=== PATIENT | male | born 1970 | race Caucasian/White ===

== ENCOUNTER 2020-05-21 18:33 | Outpatient (CLI) | payer BC, SELFPAY ==
--- NOTE | ~2020-05-21 | XR_ITS ---
EXAMINATION: XR lumbar spine 2-3V DATE: 05/21/2020 19:20 INDICATION: Low back pain and left hip pain. TECHNIQUE: 3 views of lumbar spine were obtained. COMPARISON: Lumbar spine MRI 01/30/2016 FINDINGS: There is 3 mm retrolisthesis of L5 on S1. There is mild chronic anterior wedging of L1 vert ebral body. There is mildly decreased disc height at L3-L4 and severely decreased disc height at L5-S 1. There is multilevel mild facet joint osteoarthritis. IMPRESSION: 1. Severe lower lumbar spondylosis. Reviewed, dictated and finalized at location A. 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
--- NOTE | ~2020-05-21 | XR_ITS ---
EXAMINATION: XR hip LT min 2V DATE: 05/21/2020 19:20 INDICATION: Left hip pain. TECHNIQUE: 3 views of left hip were obtained. COMPARISON: None. FINDINGS: Bone alignment is normal. No fracture. There is decreased femoral head/neck offset, which m ay be seen with femoral acetabular impingement. Left hip joint space is normal. IMPRESSION: 1. Decrease femoral head/neck offset, which may be seen with femoral acetabular impingement. Reviewed, dictated and finalized at location A. 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
== END 2020-05-21 18:34 | disposition home or self-care (01) ==
PROVIDERS: PCP Internal Medicine; Visit Provider Internal Medicine
DX: M25.552 Pain in left hip (principal); M47.896 Other spondylosis, lumbar region
CPT/HCPCS: 72100; 73502

== ENCOUNTER 2021-03-17 15:11 | Outpatient (CLI) | payer BC, SELFPAY ==
--- NOTE | ~2021-03-17 | XR_ITS ---
EXAMINATION: XR knee RT 3V DATE: 03/17/2021 15:31 INDICATION: Right knee pain. TECHNIQUE: 3 views of right knee were obtained. COMPARISON: None. FINDINGS: Bone alignment is normal. No fracture. The medial and lateral compartments are not well pro filed, which decreases sensitivity for joint space narrowing. There is at least mild tricompartmental osteoarthritis characterized by tiny marginal osteophytes. No knee joint effusion. IMPRESSION: 1. Mild right knee osteoarthritis. Reviewed, dictated and finalized at location A.
== END 2021-03-17 15:12 | disposition home or self-care (01) ==
LOC: ANHIMG 15:15
PROVIDERS: PCP Nurse Practitioner Adult Health; Visit Provider Nurse Practitioner Adult Health
DX: M17.11 Unilateral primary osteoarthritis, right knee (principal)
CPT/HCPCS: 73562

== ENCOUNTER 2021-05-24 09:47 | Outpatient (CLI) | payer BC, SELFPAY ==
[2021-05-29 15:07] LABS: Testosterone Free 40.4 pg/mL (35.0-155.0); Testosterone Total 221 ng/dL (250-1100)
== END 2021-05-24 09:48 | disposition home or self-care (01) ==
LOC: ANHLAB 09:49
PROVIDERS: PCP Nurse Practitioner Adult Health; Visit Provider Nurse Practitioner Adult Health
DX: G47.19 Other hypersomnia (principal)
CPT/HCPCS: 36415; 84402; 84403

== ENCOUNTER 2021-07-11 10:44 | Outpatient (CLI) | payer BC, SELFPAY ==
[2021-07-11 11:22] LABS: Hematocrit 39.9 % (42.0-52.0)
[2021-07-11 12:31] LABS: Prostate Specific Antigen 4.2 ng/mL (< OR = 4.0)
[2021-07-15 21:52] LABS: FSH 3.5 mIU/mL (1.6-8.0); LH 1.9 mIU/mL (1.5-9.3); Prolactin 15.7 ng/mL (***)
[2021-07-18 14:21] LABS: Estradiol, Ultrasensitive 39 pg/mL (< OR = 29)
[2021-07-21 15:17] LABS: Testosterone Free 48.1 pg/mL (35.0-155.0); Testosterone Total 334 ng/dL (250-1100)
== END 2021-07-11 10:45 | disposition home or self-care (01) ==
PROVIDERS: PCP Nurse Practitioner Adult Health; Visit Provider Nurse Practitioner
DX: R79.89 Other specified abnormal findings of blood chemistry (principal)
CPT/HCPCS: 36415; 82670; 83001; 83002; 84146; 84153; 84402; 84403; 85014; 85018

== ENCOUNTER 2021-07-14 11:33 | Outpatient (CLI) | payer BC, SELFPAY ==
[2021-07-14 12:40] LABS: Alanine Aminotransferase 28 U/L (4-50); Albumin Level 4.2 g/dL (3.5-5.1); Alkaline Phosphatase 66 U/L (38-126); Anion Gap 9 mmol/L (8-16); Aspartate Amino Transferase 27 U/L (17-59); Bilirubin,Total 0.3 mg/dL (0.2-1.3); Blood Urea Nitrogen 20 mg/dL (9-20); Calcium 9.4 mg/dL (8.4-10.2); Carbon Dioxide 27 mmol/L (22-30); Chloride 105 mmol/L (98-107); Cholesterol 140 mg/dL (0-200); Estimated Glomerular Filt Rate > 60; Glucose 107 mg/dL (65-110); HDL Direct 42 mg/dL; Sodium 141 mmol/L (137-145); Triglycerides 105 mg/dL (<150)
[2021-07-14 12:42] LABS: Hemoglobin A1C 5.4 % (<5.7)
[2021-07-14 12:51] LABS: LDL Cholesterol Direct 78 mg/dL
[2021-07-16 02:46] LABS: Insulin Level Total 110.7 uIU/mL (<=19.6)
== END 2021-07-14 11:34 | disposition home or self-care (01) ==
PROVIDERS: PCP Nurse Practitioner Adult Health; Visit Provider Nurse Practitioner Adult Health
DX: R73.03 Prediabetes (principal); E78.5 Hyperlipidemia, unspecified; E16.1 Other hypoglycemia
CPT/HCPCS: 36415; 80048; 80061; 80076; 83036; 83525

== ENCOUNTER 2021-08-07 13:47 | Outpatient (CLI) | payer BC, SELFPAY ==
[2021-08-07 15:01] LABS: Prostate Specific Antigen 2.8 ng/mL (< OR = 4.0)
== END 2021-08-07 13:48 | disposition home or self-care (01) ==
PROVIDERS: PCP Nurse Practitioner Adult Health; Visit Provider Nurse Practitioner
DX: R97.20 Elevated prostate specific antigen [PSA] (principal)
CPT/HCPCS: 36415; 84153

== ENCOUNTER 2021-10-04 07:51 | Outpatient (CLI) | payer BC, SELFPAY ==
[2021-10-04 08:52] LABS: Hematocrit 38.8 % (42.0-52.0); Hemoglobin 12.9 g/dL (14.0-18.0)
[2021-10-04 09:24] LABS: Iron 89 ug/dL (49-181)
[2021-10-04 09:35] LABS: Percent Iron Saturation 29 % (20-50)
[2021-10-08 14:43] LABS: Testosterone Free 112.6 pg/mL (35.0-155.0); Testosterone Total 552 ng/dL (250-1100)
== END 2021-10-04 07:52 | disposition home or self-care (01) ==
PROVIDERS: PCP Nurse Practitioner Adult Health; Visit Provider Nurse Practitioner
DX: D64.9 Anemia, unspecified (principal); R79.89 Other specified abnormal findings of blood chemistry
CPT/HCPCS: 36415; 82728; 83540; 83550; 84153; 84402; 84403; 85014; 85018

== ENCOUNTER 2021-10-22 14:41 | Outpatient (CLI) | payer BC, SELFPAY ==
[2021-10-22 15:07] LABS: IFOB Positive Control Positive; Immunochemical Fecal Occult Bl Negative (N)
== END 2021-10-22 14:42 | disposition home or self-care (01) ==
PROVIDERS: PCP Nurse Practitioner Adult Health; Visit Provider Nurse Practitioner Adult Health
DX: D64.9 Anemia, unspecified (principal)
CPT/HCPCS: 82274

== ENCOUNTER 2021-12-20 10:47 | Outpatient (CLI) | payer BC, SELFPAY ==
[2021-12-20 11:13] LABS: Hematocrit 43.4 % (42.0-52.0)
[2021-12-20 11:53] LABS: Prostate Specific Antigen 3.7 ng/mL (< OR = 4.0)
[2021-12-25 19:40] LABS: Testosterone Free 46.4 pg/mL (35.0-155.0); Testosterone Total 318 ng/dL (250-1100)
[2021-12-27 12:22] LABS: ANCA Screen Negative (Negative)
== END 2021-12-20 10:48 | disposition home or self-care (01) ==
LOC: ANHLAB 10:48
PROVIDERS: PCP Nurse Practitioner Adult Health; Visit Provider Otolaryngology
DX: R79.89 Other specified abnormal findings of blood chemistry (principal); M31.30 Wegener's granulomatosis without renal involvement
CPT/HCPCS: 36415; 84153; 84402; 84403; 85014; 85018; 86036

== ENCOUNTER 2022-01-02 13:43 | Outpatient (CLI) | payer BC, SELFPAY ==
--- NOTE | 2022-01-02 | ECHO_ITS ---
Patient Info Name: Doc Green Age: 51 years : 1970 Gender: Male Ht: 74 in Wt: 450 lbs BSA: 3.38 m2 HR: 70 bpm BP: 188 / 102 mmHg Technical Quality: Poor Exam Date: 01/02/2022 2:13 PM Exam Location: [facility] Patient Status: Outpatient Admit Date: 01/02/2022 Staff Ordering Physician: AsifClarice NP Brick Maker: José Manuel Coppola, YVON, RT Attending Provider: MyronClarice NP Exam Type: CA echo doppler color flow Study Info Indications R60.0 - Localized edema Complete two-dimensional, color flow and Doppler transthoracic echocardiogram is performed. Strain analysis performed. Summary 1. Complete two-dimensional, color flow and Doppler transthoracic echocardiogram is performed. 2. Technically suboptimal study due to poor sonographic images. 3. Left ventricular chamber dimension is moderately enlarged. 4. Left ventricular systolic function is normal, estimated at 55-60%. 5. There is mildly increased left ventricular wall thickness. 6. The left ventricular diastolic function is normal. 7. E/e' 8 is minimally elevated. 8. Global longitudinal strain is abnormal at -12.4%. 9. The aortic valve is not well visualized. Cannot determine number of aortic valve leaflets. 10. There is severe aortic valve sclerosis. Left Ventricle E/e' 8 is minimally elevated. Global longitudinal strain is abnormal at -12.4%. Left ventricular chamber dimension is moderately enlarged. Left ventricular systolic function is normal, estimated at 55-60%. There is mildly increased left ventricular wall thickness. The left ventricular diastolic function is normal. Technically suboptimal study due to poor sonographic images. Right Ventricle Right ventricular systolic function is normal based on a normal TAPSE 3.2 cm. Right ventricular chamber dimension is not well visualized. Left Atria Left atrial chamber dimension is normal. Right Atria Right atrial chamber dimension is not well visualized. Aortic Valve The aortic valve is not well visualized. Cannot determine number of aortic valve leaflets. There is no aortic valve stenosis based on valve area and gradients. There is severe aortic valve sclerosis. There is no aortic valve regurgitation. Pulmonic Valve There is no pulmonic regurgitation. Mitral Valve There is no mitral valve stenosis. There is no mitral valve regurgitation. Tricuspid Valve The tricuspid valve leaflets are not well visualized. There is no tricuspid valve regurgitation. Pericardium/Pleural There is no pericardial effusion. Inferior Vena Cava Normal inferior vena cava with >50% collapse upon inspiration consistent with normal right atrial pressure, 5 mmHg. Aorta The aortic root size at the sinus of Valsalva is not well visualized. Left Ventricular Outflow Tract Name Value Normal LVOT 2D LVOT Diameter 2.4 cm LVOT Doppler LVOT Peak Gradient 3 mmHg LVOT Mean Gradient 2 mmHg LVOT VTI 19 cm LVOT VTI/AV VTI Ratio 0.5 LVOT Stroke Volum
== END 2022-01-02 13:44 | disposition home or self-care (01) ==
LOC: ANHCARD 13:45
PROVIDERS: PCP Nurse Practitioner Adult Health; Visit Provider Nurse Practitioner Adult Health
DX: R60.0 Localized edema (principal)
CPT/HCPCS: 93306

== ENCOUNTER 2022-03-07 08:34 | Outpatient (CLI) | payer BC, SELFPAY ==
[2022-03-07 09:07] LABS: Hemoglobin 14.1 g/dL (14.0-18.0)
[2022-03-07 09:37] LABS: Alanine Aminotransferase 39 U/L (6-50); Albumin Level 4.6 g/dL (3.5-5.1); Alkaline Phosphatase 68 U/L (38-126); Anion Gap 10 mmol/L (8-16); Aspartate Amino Transferase 32 U/L (17-59); Bilirubin,Total 0.8 mg/dL (0.2-1.3); Blood Urea Nitrogen 19 mg/dL (9-20); Calcium 9.2 mg/dL (8.4-10.2); Carbon Dioxide 31 mmol/L (22-30); Chloride 97 mmol/L (98-107); Cholesterol 124 mg/dL (0-200); Estimated Glomerular Filt Rate > 60; Glucose 99 mg/dL (65-110); HDL Direct 36 mg/dL; Potassium 3.5 mmol/L (3.4-5.0); Sodium 138 mmol/L (137-145); Triglycerides 72 mg/dL (<150)
[2022-03-07 09:48] LABS: LDL Cholesterol Direct 61 mg/dL
[2022-03-07 10:07] LABS: Hemoglobin A1C 5.3 % (<5.7)
[2022-03-07 10:08] LABS: Prostate Specific Antigen 4.5 ng/mL (< OR = 4.0)
[2022-03-11 12:27] LABS: Insulin Level Total 25.3 uIU/mL (<=19.6)
[2022-03-13 11:01] LABS: Testosterone Free 73.2 pg/mL (35.0-155.0); Testosterone Total 428 ng/dL (250-1100)
== END 2022-03-07 08:35 | disposition home or self-care (01) ==
PROVIDERS: PCP Nurse Practitioner Adult Health; Visit Provider Nurse Practitioner
DX: R73.03 Prediabetes (principal); E16.1 Other hypoglycemia
CPT/HCPCS: 36415; 80048; 80061; 80076; 83036; 83525; 84153; 84402; 84403; 85014; 85018

== ENCOUNTER 2022-10-02 00:42 | Day surgery (SDC) | payer BC, SELFPAY ==
[2022-09-22 12:55] VITALS: BMI 60.4
--- NOTE | 2022-10-01 11:09 | PM.HPGS ---
History of Present Illness History of Present Illness Consent: Risks, benefits, and alternatives have been discussed and questions answered. Patient agrees to proceed with procedure. Chief complaint: positive cologuard Narrative: Doc Green is a 52 year old male who was referred for colon cancer screening. Recently completed Cologuard test was positive. Review of Systems Review of Systems: All systems reviewed & are unremarkable except as noted in HPI and below PMFSH Past Medical History Medical History CAD (coronary artery disease) Morbid obesity BYRON (obstructive sleep apnea) Surgical History Surgical History History of coronary artery stent placement Social History Social History Smoking status: Never smoker Alcohol intake: current Alcohol use details: on rare occassion Substance use type: does not use Living arrangements: alone Meds Home Medications and Allergies Home Medications Medication Instructions Recorded Confirmed Type amlodipine 5 mg tablet 5 mg PO DAILY 09/22/22 10/02/22 History aspirin 81 mg tablet 81 mg PO DAILY 09/22/22 10/02/22 History atorvastatin 80 mg tablet 80 mg PO DAILY 09/22/22 10/02/22 History bupropion HCl 150 mg tablet,12 hr 150 mg PO DAILY 09/22/22 10/02/22 History sustained-release diclofenac sodium 75 mg 75 mg PO DAILY 09/22/22 10/02/22 History tablet,delayed release duloxetine 30 mg capsule,delayed 30 mg PO HS 09/22/22 10/02/22 History release duloxetine 60 mg capsule,delayed 60 mg PO DAILY 09/22/22 10/02/22 History release empagliflozin 25 mg tablet 25 mg PO DAILY 09/22/22 10/02/22 History (Jardiance) ezetimibe 10 mg tablet 10 mg PO DAILY 09/22/22 10/02/22 History folic acid 1 mg tablet 1 mg PO DAILY 09/22/22 10/02/22 History leflunomide 10 mg tablet 10 mg PO DAILY 09/22/22 10/02/22 History losartan 100 1 tablet PO DAILY 09/22/22 10/02/22 History mg-hydrochlorothiazide 25 mg tablet metformin 500 mg tablet,extended 500 mg PO DAILY 09/22/22 10/02/22 History release 24 hr methotrexate sodium 2.5 mg tablet See Rx Instructions .Route .COMPLEX 09/22/22 10/02/22 History metoprolol succinate 50 mg 50 mg PO DAILY 09/22/22 10/02/22 History tablet,extended release 24 hr secukinumab 150 mg/mL subcutaneous 150 mg subcut WEEKLY 09/22/22 10/02/22 History pen injector (Cosentyx Pen) tramadol 50 mg tablet 50 mg PO PRN PRN Pain 09/22/22 10/02/22 History Allergies Allergy/AdvReac Type Severity Reaction Status Date / Time No Known Allergies Allergy Verified 10/02/22 06:58 Exam Resp: Auscultation: clear to auscultation bilaterally Cardio: Rate: regular rate Rhythm: regular rhythm GI: GI Palp: Yes Soft to palpation and No Tenderness to palpation present (GI) Assessment and Plan Assessment and plan (1) Colon cancer screening: Code(s): Z12.11 - Encounter for screening for malignant neoplasm of colon Status: Acute Assessment and Plan: Colonoscopy with possible biopsy or polypectomy or cautery or injection of substances.
[2022-10-02 07:00] VITALS: BP 159/102; PULSE 98; RESP 18; TEMP 36.2; O2SAT 97
--- NOTE | 2022-10-02 07:02 | WPDANESEPPF ---
Anes - Initial Pre Proc Eval Procedure: Operation Date: 10/02/22 08:00 Proposed Procedures p Colonoscopy - Jarrod Delgado MD Date/Time: 10/02/22 07:02 Surgeon: Jarrod Delgado MD Pre Op Diagnosis: positive cologuard Patient Data Age: 52 Gender: M Height: 1.88 m Weight: 213.4 kg Allergies Allergy/AdvReac Type Severity Reaction Status Date / Time No Known Allergies Allergy Verified 10/02/22 06:58 Home Medications Medication Instructions Recorded Confirmed Type amlodipine 5 mg tablet 5 mg PO DAILY 09/22/22 10/02/22 History aspirin 81 mg tablet 81 mg PO DAILY 09/22/22 10/02/22 History atorvastatin 80 mg tablet 80 mg PO DAILY 09/22/22 10/02/22 History bupropion HCl 150 mg tablet,12 hr 150 mg PO DAILY 09/22/22 10/02/22 History sustained-release diclofenac sodium 75 mg 75 mg PO DAILY 09/22/22 10/02/22 History tablet,delayed release duloxetine 30 mg capsule,delayed 30 mg PO HS 09/22/22 10/02/22 History release duloxetine 60 mg capsule,delayed 60 mg PO DAILY 09/22/22 10/02/22 History release empagliflozin 25 mg tablet 25 mg PO DAILY 09/22/22 10/02/22 History (Jardiance) ezetimibe 10 mg tablet 10 mg PO DAILY 09/22/22 10/02/22 History folic acid 1 mg tablet 1 mg PO DAILY 09/22/22 10/02/22 History leflunomide 10 mg tablet 10 mg PO DAILY 09/22/22 10/02/22 History losartan 100 1 tablet PO DAILY 09/22/22 10/02/22 History mg-hydrochlorothiazide 25 mg tablet metformin 500 mg tablet,extended 500 mg PO DAILY 09/22/22 10/02/22 History release 24 hr methotrexate sodium 2.5 mg tablet See Rx Instructions .Route .COMPLEX 09/22/22 10/02/22 History metoprolol succinate 50 mg 50 mg PO DAILY 09/22/22 10/02/22 History tablet,extended release 24 hr secukinumab 150 mg/mL subcutaneous 150 mg subcut WEEKLY 09/22/22 10/02/22 History pen injector (Cosentyx Pen) tramadol 50 mg tablet 50 mg PO PRN PRN Pain 09/22/22 10/02/22 History Patient hx anesthesia problems: none Family hx anesthesia problems: none Results Review: All pre-operative results and documents have been reviewed as part of the pre-operative evaluation. [facility] Past Medical History Medical History (Updated 10/02/22 @ 07:02 by Seven Mijares MD) CAD (coronary artery disease) Morbid obesity BYRON (obstructive sleep apnea) Surgical History Surgical History (Updated 10/02/22 @ 07:02 by Seven Mijares MD) History of coronary artery stent placement Social History Social History Smoking status: Never smoker Alcohol intake: current Alcohol use details: on rare occassion Substance use type: does not use Living arrangements: alone Anes - Eval Final PreProcedure Day of Procedure 10/02/22 07:02 Patient weight: super morbidly obese Heart: regular rate and rhythm Lungs: clear to auscultation Airway: Mallampati scale class II Neurological: alert and oriented Last oral intake: >/= 8 hours ASA classification: III Emergent: no Anesthetic plan: proceed Anesthesia type and monitoring: general GIVS and standard monitoring Results Review: All pre-operative results and documents have been reviewed as part of the pre-operative evaluation. Informed Consent: The patient's anesthetic plan and its attendant risks and benefits were discussed with the patient/family/POA. Questions were solicited and answers provided to the satisfaction of the patient/family/POA.
[2022-10-02] MEDS: LACTATED RINGERS 1,000 ML 150 ML IV CONT (07:24)
[2022-10-02 07:26] LABS: Glucose Point of Care 119 mg/dl (65-105)
[2022-10-02 08:14] VITALS: BP 131/70; PULSE 85; RESP 18; O2SAT 97
[2022-10-02 08:24] VITALS: BP 140/59; PULSE 77; RESP 18; O2SAT 97
[2022-10-02 08:34] VITALS: BP 131/70; PULSE 81; RESP 18; O2SAT 97
== END 2022-10-02 08:44 | disposition home or self-care (01) ==
PROVIDERS: PCP Nurse Practitioner Family; Visit Provider Internal Medicine Gastroenterology
PROC: 0DJD8ZZ Inspection of Lower Intestinal Tract, Via Natural or Artificial Opening Endoscopic (ICD-10-PCS; CPT 45378; principal; 2022-10-02 08:00)
DX: Z12.11 Encounter for screening for malignant neoplasm of colon (principal); K64.8 Other hemorrhoids; R19.5 Other fecal abnormalities; I25.10 Atherosclerotic heart disease of native coronary artery without angina pectoris; G47.33 Obstructive sleep apnea (adult) (pediatric); Z95.5 Presence of coronary angioplasty implant and graft; E66.01 Morbid (severe) obesity due to excess calories; Z68.43 Body mass index [BMI] 50.0-59.9, adult; Z79.82 Long term (current) use of aspirin; Z79.84 Long term (current) use of oral hypoglycemic drugs; Z79.620 Long term (current) use of immunosuppressive biologic
CPT/HCPCS: 45378; 82948; J2704; J7120

== ENCOUNTER 2022-11-07 10:06 | Outpatient (CLI) | payer BC, SELFPAY ==
[2022-11-07 11:37] LABS: Appearance Urine Clear (Clear); Bilirubin Urine Negative (Negative); Blood Urine Negative (Negative); Color Urine Yellow (Yellow); Glucose Urine UA 3+ mg/dL (Negative); Ketones Urine Negative (Negative); Leukocyte Esterase Ur Negative LEU/UL (Negative); Nitrate Urine Negative (Negative); Protein Urine Negative (Negative); pH Urine 5.5 (5.0-9.0)
[2022-11-07 11:47] LABS: Specific Grav Ur 1.038 (1.001-1.035)
[2022-11-07 11:56] LABS: Add Urine Microscopic? NO
[2022-11-07 12:01] LABS: Creatinine Urine 130.7 mg/dL
[2022-11-07 12:07] LABS: Microalbumin Urine Random 13.1 mg/L (0-16.7)
[2022-11-07 12:11] LABS: Basophils Absolute Auto 0.1 K/mm3 (0.0-0.1); Basophils Percent Auto 0.7 % (0.2-1.2); Eosinophils Absolute Auto 0.1 K/mm3 (0-0.3); Eosinophils Percent Auto 0.9 % (0-4.4); Hematocrit 46.4 % (42.0-52.0); Hemoglobin 14.6 g/dL (14.0-18.0); Immature Granulocyte Absolute 0.03 K/mm3 (0.00-0.031); Immature Granulocyte Percent A 0.3 % (0-0.5); Lymphocytes Absolute Auto 0.99 K/mm3 (0.9-3.2); Lymphocytes Percent Auto 10.9 % (18.3-44.2); Mean Corpuscular HGB Conc 31.5 g/dl (32-36); Mean Corpuscular Hemoglobin 29.7 pg (26-34); Mean Corpuscular Volume 94.5 fl (80-100); Mean Platelet Volume 9.1 fl (7.4-10.4); Monocytes Absolute Auto 0.7 K/mm3 (0.1-0.6); Monocytes Percent Auto 7.7 % (2.6-8.5); Neutrophils Absolute Auto 7.2 K/mm3 (1.3-6.7); Neutrophils Percent Auto 79.5 % (45.5-73.1); Platelet Count Result 268 k/mm3 (150-375); Red Blood Count 4.91 M/mm3 (4.6-6.20); Red Cell Distribution Width 16.8 % (11.5-14.5); White Blood Count 9.1 K/mm3 (4.5-10.0)
[2022-11-07 12:18] LABS: Alanine Aminotransferase 45 U/L (6-50); Albumin Level 4.4 g/dL (3.5-5.1); Alkaline Phosphatase 73 U/L (38-126); Anion Gap 6 mmol/L (8-16); Aspartate Amino Transferase 36 U/L (17-59); Bilirubin,Total 0.6 mg/dL (0.2-1.3); Blood Urea Nitrogen 23 mg/dL (9-20); Calcium 8.6 mg/dL (8.4-10.2); Carbon Dioxide 32 mmol/L (22-30); Chloride 102 mmol/L (98-107); Cholesterol 144 mg/dL (0-200); Estimated Glomerular Filt Rate > 60; Glucose 85 mg/dL (65-110); HDL Direct 33 mg/dL; Potassium 3.4 mmol/L (3.4-5.0); Sodium 140 mmol/L (137-145); Triglycerides 230 mg/dL (<150)
[2022-11-07 12:22] LABS: Hemoglobin A1C 5.8 % (<5.7)
[2022-11-07 12:31] LABS: LDL Cholesterol Direct 88 mg/dL
[2022-11-07 12:46] LABS: Thyroid Stimulating Hormone 0.738 uIU/mL (0.465-4.680)
[2022-11-07 13:09] LABS: Free T4 Free Thyroxine 0.71 ng/mL (0.78-2.19)
== END 2022-11-07 10:07 | disposition home or self-care (01) ==
PROVIDERS: PCP Nurse Practitioner Family; Visit Provider Nurse Practitioner Family
DX: E11.9 Type 2 diabetes mellitus without complications (principal); E78.5 Hyperlipidemia, unspecified; I10 Essential (primary) hypertension
CPT/HCPCS: 36415; 80053; 80061; 81003; 82043; 83036; 84439; 84443; 85025

== ENCOUNTER 2023-04-10 09:40 | Outpatient (CLI) | payer BC, SELFPAY ==
[2023-04-10 10:05] LABS: Basophils Percent Auto 0.5 % (0.2-1.2); Eosinophils Percent Auto 0.5 % (0-4.4); Hematocrit 39.5 % (42.0-52.0); Hemoglobin 12.9 g/dL (14.0-18.0); Immature Granulocyte Absolute 0.04 K/mm3 (0.00-0.031); Immature Granulocyte Percent A 0.7 % (0-0.5); Lymphocytes Absolute Auto 1.38 K/mm3 (0.9-3.2); Mean Corpuscular HGB Conc 32.7 g/dl (32-36); Mean Corpuscular Hemoglobin 31.2 pg (26-34); Mean Corpuscular Volume 95.6 fl (80-100); Mean Platelet Volume 8.8 fl (7.4-10.4); Monocytes Absolute Auto 0.4 K/mm3 (0.1-0.6); Monocytes Percent Auto 7.3 % (2.6-8.5); Neutrophils Absolute Auto 3.9 K/mm3 (1.3-6.7); Platelet Count Result 241 k/mm3 (150-375); Red Blood Count 4.13 M/mm3 (4.6-6.20); Red Cell Distribution Width 16.4 % (11.5-14.5); White Blood Count 5.8 K/mm3 (4.5-10.0)
[2023-04-10 10:16] LABS: Alanine Aminotransferase 45 U/L (6-50); Albumin Level 4.2 g/dL (3.5-5.1); Alkaline Phosphatase 70 U/L (38-126); Anion Gap 5 mmol/L (8-16); Aspartate Amino Transferase 37 U/L (17-59); Bilirubin,Total 0.7 mg/dL (0.2-1.3); Blood Urea Nitrogen 22 mg/dL (9-20); Calcium 8.7 mg/dL (8.4-10.2); Carbon Dioxide 31 mmol/L (22-30); Chloride 103 mmol/L (98-107); Cholesterol 137 mg/dL (0-200); Estimated Glomerular Filt Rate > 60; Glucose 98 mg/dL (65-110); HDL Direct 39 mg/dL; Potassium 3.5 mmol/L (3.4-5.0); Sodium 139 mmol/L (137-145); Triglycerides 79 mg/dL (<150)
[2023-04-10 10:29] LABS: LDL Cholesterol Direct 80 mg/dL
[2023-04-10 10:42] LABS: Creatinine Urine 221.9 mg/dL
[2023-04-10 10:47] LABS: MALB Creatinine Ratio 11.9 mg/g (0-30); Microalbumin Urine Random 26.3 mg/L (0-16.7)
[2023-04-10 12:04] LABS: Hemoglobin A1C 5.6 % (<5.7)
[2023-04-12 20:36] LABS: PSA, Free 0.54 ng/mL; PSA, Total 2.8 ng/mL (<=4.0); Percent Free Prostate Spec Ag 19 % (>25)
== END 2023-04-10 09:41 | disposition home or self-care (01) ==
LOC: ANHLAB 09:42
PROVIDERS: PCP Nurse Practitioner Family; Visit Provider Nurse Practitioner Family
DX: E11.9 Type 2 diabetes mellitus without complications (principal); E78.5 Hyperlipidemia, unspecified; C61 Malignant neoplasm of prostate
CPT/HCPCS: 36415; 80053; 80061; 82043; 83036; 84153; 84154; 84443; 85025

== ENCOUNTER 2023-10-02 07:41 | Outpatient (CLI) | payer BC, SELFPAY ==
--- NOTE | ~2023-10-02 | MR_ITS ---
EXAMINATION: MR thoracic spine wo con DATE: 10/02/2023 09:25 INDICATION: Radiculopathy with bilateral leg pain and tingling TECHNIQUE: Magnetic resonance imaging (MRI) of the thoracic spine was performed without intravenous c ontrast. Sagittal localizer T1-weighted FSE of the cervicothoracic spine was obtained. Thoracic spine sequences included sagittal T2-weighted FSE, sagittal T1-weighted SE, Sagittal T2-weighted FS FSE, a nd axial T2-weighted FSE. COMPARISON: None FINDINGS: Alignment is normal.Mild anterior wedging atT6. Multiple Schmorl's nodes versus more likely notochord al remnants involving the majority of the superior and inferior endplates throughout the thoracic spi ne, position slightly posterior to the midpoint of the endplates.T1 and T2 hyperintense hemangioma at T4. Marrow signal is otherwise normal throughout.There is multilevel mild disc height loss from T3-T 4 through T8-T9 as well as [id number] and T11-T12. Small right paracentral disc protrusion at T8-T9 re sulting in only minimal central canal stenosis. Mild disc bulges at T10-T11 and T11-T12 height loss w ith only minimal central canal stenosis. The remaining discs do not extend beyond the endplate margin s. There is normal spinal cord signal. The conus terminates at L1. There is mild to moderate upper th oracic and mild lower thoracic facet osteoarthritis. There is mild neural foraminal stenosis on the r ight at T9-T10. Remaining thoracic neural foramina are patent throughout. Paravertebral soft tissues are unremarkable. IMPRESSION: 1. Mild thoracic spondylosis. Reviewed, dictated and finalized at location A.
--- NOTE | ~2023-10-02 | MR_ITS ---
MRI of the lumbar spine Clinical History: Radiculopathy Technique: Axial T2-weighted images, and sagittal T1-weighted, T2-weighted, and T2 fat-sat images wer e acquired. Findings: There is 4 mm retrolisthesis of L5 over S1. No fracture seen. No suspicious bone marrow sig nal abnormality. At L1-L2, there is mild degenerative disc narrowing with minimal disc bulge and moderate facet arthro juan m. No alfredo central canal stenosis or neural foraminal narrowing. At L2-L3, disc bulge and severe facet arthropathy result in moderate to severe spinal canal stenosis/ thecal sac compression. There is severe left neural foraminal narrowing, and mild right neural forami nal narrowing. At L3-L4, there is advanced degenerative disc 9. There is central disc protrusion superimposed upon d iffuse disc bulge with severe facet arthropathy. There is severe spinal canal stenosis/thecal sac com pression. There is severe right neural foraminal narrowing, and moderate left neural foraminal narrow ing. At L4-L5, there is left paracentral disc extrusion/herniation, which conduction with underlying disc bulge and severe facet arthropathy, results in severe compression of the thecal sac at this level. Th ere is moderate to severe left neural foraminal narrowing, and moderate right neural foraminal narrow ing. There is severe left lateral recess stenosis at this level. At L5-S1, there is diffuse disc bulge with moderate facet arthropathy. There is probable small disc e xtrusion at the right paracentral region extending inferiorly. No alfredo spinal canal stenosis at this level. There is severe bilateral neural foraminal narrowing. There may be impingement of the descend ing right-sided S1-S2 level nerve root by the aforementioned extrusion. Paravertebral soft tissues are otherwise unremarkable. Impression: Large left paracentral disc extrusion/herniation L4-L5, resulting in moderate to severe spinal canal stenosis/thecal sac compression, severe left lateral recess stenosis, and probable impingement of lef t-sided nerve roots at this region. Right paracentral disc extrusion at L5-S1 extending inferiorly, likely impinging the descending right -sided S1-S2 level nerve root. Additional moderate to advanced degenerative spondylitic changes, as above. Reviewed, dictated and finalized at location M. Impression: Large left paracentral disc extrusion/herniation L4-L5, resulting in moderate t o severe spinal canal stenosis/thecal sac compression, severe left lateral rece ss stenosis, and probable impingement of left-sided nerve roots at this region. Right paracentral disc extrusion at L5-S1 extending inferiorly, likely impingin g the descending right-sided S1-S2 level nerve root. Additional moderate to advanced degenerative spondylitic changes, as above.
--- NOTE | ~2023-10-02 | MR_ITS ---
EXAMINATION: MR cervical spine wo con DATE: 10/02/2023 08:32 INDICATION: Cervical radiculopathy. TECHNIQUE: Magnetic resonance imaging (MRI) of the cervical spine was performed without intravenous c ontrast. Sequences included sagittal T2-weighted FSE, sagittal T2-weighted FS FSE, sagittal T1-weight ed FSE, axial MERGE and axial T2-weighted FSE. COMPARISON: None FINDINGS: Straightening of the normal cervical lordosis. 2 mm retrolisthesis C5 on C6. Vertebral body heights are normal. Moderate to severe disc height loss with associated mild fibrovascular degenerative endpl ate changes at C5-C6. Mild disc height loss at C2-C3 through C4-C5. There are annular fissures and di sc extrusion with disc material extending cephalad to the level of the inferior endplates at the C2-3 through C5-C6 disc spaces. Cord signal intensity is normal. Visualized cervical soft tissues are unr emarkable. The following disc levels are specifically discussed: C2-C3: Annular fissure and tiny central disc extrusion. There is mild bilateral uncovertebral joint o steoarthritis. There is mild left and moderate right facet joint osteoarthritis. There is mild right neural foraminal stenosis. There is no central canal stenosis. C3-C4: Annular fissure and small central disc extrusion. There is mild bilateral uncovertebral joint osteoarthritis. There is mild right and mild to moderate left facet joint osteoarthritis. There is mi ld bilateral neural foraminal stenosis. There is mild central canal stenosis. C4-C5: Annular fissure and small central disc extrusion which mildly indents the central ventral surf alice of the cord. There is mild left uncovertebral joint osteoarthritis. There is mild left facet join t osteoarthritis. There is mild left neural foraminal stenosis. There is mild central canal stenosis. C5-C6: Disc is bulging with superimposed annular fissure and small to moderate-sized central to right foraminal zone disc extrusion where it flattens the ventral surface of the cord and more prominently on the right. There is moderate left and severe right uncovertebral joint osteoarthritis. There is m ild to moderate bilateral facet joint osteoarthritis. There is mild left and moderate to severe right neural foraminal stenosis. There is mild central canal stenosis. C6-C7: The disc does not extend beyond the endplate margin. There is mild left uncovertebral joint os teoarthritis. There is mild bilateral facet joint osteoarthritis. There is no neural foraminal stenos is. There is no central canal stenosis. C7-T1: The disc does not extend beyond the endplate margin. There is mild left uncovertebral joint os teoarthritis. There is mild right and mild to moderate left facet joint osteoarthritis. There is mild left neural foraminal stenosis. There is no central canal stenosis. IMPRESSION: 1. Moderate to severe cervical spondylosis. Reviewed, dictated and finalized at location A.
== END 2023-10-02 07:42 ==
PROVIDERS: PCP Nurse Practitioner Adult Health; Visit Provider Nurse Practitioner Adult Health
DX: R20.2 Paresthesia of skin (principal); M51.27 Other intervertebral disc displacement, lumbosacral region; M47.24 Other spondylosis with radiculopathy, thoracic region; M47.22 Other spondylosis with radiculopathy, cervical region
CPT/HCPCS: 72141; 72146; 72148

== ENCOUNTER 2023-10-19 13:00 | Outpatient (CLI) | payer BC, SELFPAY ==
--- NOTE | 2023-10-19 14:30 | NEURO_ITS ---
Impression: # Complains of numbness and tingling in upper and lower extremities. Status post gastric bypass surgery. No history of spine surgery. # Subtle right Carpal Tunnel Syndrome. 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 # Needle/EMG exam neurogenic in lower extremities particularly the right leg. Nerve Conduction Studies Anti Sensory Summary Table Stim Site NR Peak (ms) P-T Amp (?V) Site1 Site2 Delta-P (ms) Dist (cm) Albert (m/s) Left Median Anti Sensory (2-3nd Digit) Wrist 3.9 27.6 Wrist 2-3nd Digit 3.9 14.0 36 Wrist 4.2 23.0 Wrist 2-3nd Digit 3.9 14.0 36 Right Median Anti Sensory (2-3nd Digit) Wrist 4.6 21.8 Wrist 2-3nd Digit 4.6 14.0 30 Wrist 4.3 32.8 Wrist 2-3nd Digit 4.6 14.0 30 Left Radial Anti Sensory (Base 1st Digit) Wrist 2.1 19.2 Wrist Base 1st Digit 2.1 0.0 Right Radial Anti Sensory (Base 1st Digit) Wrist 2.8 5.8 Wrist Base 1st Digit 2.8 0.0 Left Saphenous Anti Sensory (Ant Med Mall) NO RESPONSE 14cm NR 14cm Ant Med Mall 0.0 Right Saphenous Anti Sensory (Ant Med Mall) NO RESPONSE 14cm NR 14cm Ant Med Mall 0.0 Left Sup Fibular Anti Sensory (Ant Lat Mall) NO RESPONSE 14 cm NR 14 cm Ant Lat Mall 16.0 Right Sup Fibular Anti Sensory (Ant Lat Mall) NO RESPONSE 14 cm NR 14 cm Ant Lat Mall 16.0 Left Sural Anti Sensory (Lat Mall) NO RESPONSE Calf NR Calf Lat Mall 16.0 Right Sural Anti Sensory (Lat Mall) NO RESPONSE Calf NR Calf Lat Mall 16.0 Left Ulnar Anti Sensory (5th Digit) Wrist 3.3 12.6 Wrist 5th Digit 3.3 14.0 42 Right Ulnar Anti Sensory (5th Digit) Wrist 3.2 36.3 Wrist 5th Digit 3.2 14.0 44 Motor Summary Table Stim Site NR Onset (ms) O-P Amp (mV) Site1 Site2 Delta-0 (ms) Dist (cm) Albert (m/s) Left Median Motor (Abd Poll Brev) Wrist 3.8 1.6 Elbow Wrist 5.6 33.0 59 Elbow 9.4 0.7 Right Median Motor (Abd Poll Brev) Wrist 4.5 1.0 Elbow Wrist 5.8 33.0 57 Elbow 10.3 2.8 ELB/ADM Wrist 0.4 0.0 Left Peroneal Motor (Vastus Med) Ankle 4.6 0.2 Popit Ankle 10.2 46.0 45 Popit 14.8 0.3 Right Peroneal Motor (Vastus Med) NO RESPONSE Ankle NR Popit Ankle 0.0 Popit NR Left Tibial Motor (Abd Johnson Brev) Ankle 4.8 1.9 Knee Ankle 11.3 46.0 41 Knee 16.1 0.6 Right Tibial Motor (Abd Johnson Brev) Ankle 4.9 3.4 Knee Ankle 11.3 45.0 40 Knee 16.2 0.3 Left Ulnar Motor (Abd Dig Minimi) Wrist 3.2 4.0 A Elbow Wrist 6.1 34.0 56 A Elbow 9.3 3.3 Right Ulnar Motor (Abd Dig Minimi) Wrist 2.9 6.9 A Elbow Wrist 5.8 33.0 57 A Elbow 8.7 7.3 F Wave Studies NR F-Lat (ms) L-R F-Lat (ms) Left Median (Mrkrs) (Abd Poll Brev) 31.17 0.53 Right Median (Mrkrs) (Abd Poll Brev) 30.64 0.53 Left Peroneal (Mrkrs) (EDB) 57.66 0.47 Right Peroneal (Mrkrs) (EDB) 58.13 0.47 Left Tibial (Mrkrs) (Abd Hallucis) 58.72 0.39 Right Tibial (Mrkrs) (Abd Hallucis) 59.11 0.39 Left Ulnar (Mrkrs) (Abd Dig Min) 30.70 0.25 Right Ulnar (Mrkrs) (Abd Dig Min) 30.45 0.25 EMG Side Muscle Nerve Root Ins Act Fibs Amp Dur Recrt Comment Right 1stDorInt Ulnar
== END 2023-10-19 13:01 | disposition home or self-care (01) ==
PROVIDERS: PCP Nurse Practitioner Adult Health; Visit Provider Nurse Practitioner Adult Health
DX: R20.2 Paresthesia of skin (principal); G56.01 Carpal tunnel syndrome, right upper limb
CPT/HCPCS: 95886; 95913

== ENCOUNTER 2023-11-15 14:10 | Outpatient (CLI) | payer BC, SELFPAY ==
[2023-11-15 14:45] LABS: Basophils Absolute Auto 0.1 K/mm3 (0.0-0.1); Basophils Percent Auto 0.7 % (0.2-1.2); Eosinophils Percent Auto 0.6 % (0-4.4); Hematocrit 41.5 % (42.0-52.0); Hemoglobin 13.3 g/dL (14.0-18.0); Immature Granulocyte Absolute 0.02 K/mm3 (0.00-0.031); Immature Granulocyte Percent A 0.3 % (0-0.5); Lymphocytes Absolute Auto 2.18 K/mm3 (0.9-3.2); Lymphocytes Percent Auto 31.3 % (18.3-44.2); Mean Corpuscular Hemoglobin 29.9 pg (26-34); Mean Corpuscular Volume 93.3 fl (80-100); Mean Platelet Volume 8.9 fl (7.4-10.4); Monocytes Absolute Auto 0.7 K/mm3 (0.1-0.6); Monocytes Percent Auto 10.1 % (2.6-8.5); Platelet Count Result 256 k/mm3 (150-375); Red Blood Count 4.45 M/mm3 (4.6-6.20)
[2023-11-15 15:05] LABS: Hemoglobin A1C 4.6 % (<5.7)
[2023-11-15 15:26] LABS: Alanine Aminotransferase 17 U/L (6-50); Albumin Level 4.5 g/dL (3.5-5.1); Alkaline Phosphatase 79 U/L (38-126); Anion Gap 9 mmol/L (4-12); Aspartate Amino Transferase 21 U/L (17-59); Bilirubin,Total 0.5 mg/dL (0.2-1.3); Blood Urea Nitrogen 19 mg/dL (9-20); Calcium 9.6 mg/dL (8.4-10.2); Carbon Dioxide 28 mmol/L (22-30); Chloride 107 mmol/L (98-107); Cholesterol 168 mg/dL (0-200); Estimated Glomerular Filt Rate > 60; Glucose 79 mg/dL (65-110); HDL Direct 54 mg/dL; Potassium 3.5 mmol/L (3.4-5.0); Sodium 144 mmol/L (137-145); Triglycerides 103 mg/dL (<150)
[2023-11-15 15:31] LABS: Vitamin D 25 Hydroxy 27.5 ng/mL
[2023-11-15 15:36] LABS: LDL Cholesterol Direct 94 mg/dL
[2023-11-15 16:31] LABS: Folic Acid 4.1 ng/mL (2.76->20)
[2023-11-15 16:35] LABS: Iron 58 ug/dL (49-181)
[2023-11-15 16:37] LABS: Percent Iron Saturation 20 % (20-50)
[2023-11-19 11:13] LABS: Vitamin B1 <6 nmol/L (8-30)
== END 2023-11-15 14:11 | disposition home or self-care (01) ==
PROVIDERS: PCP Nurse Practitioner Adult Health; Referring Provider Internal Medicine; Visit Provider Nurse Practitioner Adult Health
DX: E78.5 Hyperlipidemia, unspecified (principal); Z98.84 Bariatric surgery status
CPT/HCPCS: 36415; 80053; 80061; 82306; 82607; 82728; 82746; 83036; 83540; 83550; 83735; 84425; 84443; 85025

== ENCOUNTER 2024-04-15 08:36 | Outpatient (CLI) | payer BC, SELFPAY ==
--- NOTE | ~2024-04-15 | XR_ITS ---
XR lumbar spine min 4V 04/15/2024 09:20 Indication: Spondylolisthesis Procedure: 6 views lumbar spine Comparison: 05/21/2020 Findings: There is grade 1 degenerative spondylolisthesis at L4-5. There is disc narrowing at all lum bar levels. There is multilevel facet hypertrophy most advanced at L4-5 and L5-S1. No acute fracture or traumatic malalignment. Pedicles intact. Impression: 1: Moderate-severe lumbar spondylosis with grade 1 degenerative spondylolisthesis at L4-5. Reviewed, dictated and finalized at location B. Impression: 1: Moderate-severe lumbar spondylosis with grade 1 degenerative spondylolisthes is at L4-5.
== END 2024-04-15 08:37 | disposition home or self-care (01) ==
LOC: MICIMG 08:39
PROVIDERS: PCP Nurse Practitioner Adult Health; Visit Provider Neurological Surgery
DX: M43.16 Spondylolisthesis, lumbar region (principal); M48.062 Spinal stenosis, lumbar region with neurogenic claudication; M47.896 Other spondylosis, lumbar region
CPT/HCPCS: 72110

== ENCOUNTER 2024-04-15 09:11 | Outpatient (CLI) | payer BC, SELFPAY ==
[2024-04-15 09:29] LABS: Basophils Percent Auto 0.3 % (0.2-1.2); Eosinophils Percent Auto 0.1 % (0-4.4); Hematocrit 42.3 % (42.0-52.0); Hemoglobin 14.1 g/dL (14.0-18.0); Immature Granulocyte Absolute 0.01 K/mm3 (0.00-0.031); Immature Granulocyte Percent A 0.1 % (0-0.5); Lymphocytes Absolute Auto 0.84 K/mm3 (0.9-3.2); Lymphocytes Percent Auto 12.1 % (18.3-44.2); Mean Corpuscular HGB Conc 33.3 g/dl (32-36); Mean Corpuscular Hemoglobin 30.9 pg (26-34); Mean Corpuscular Volume 92.6 fl (80-100); Mean Platelet Volume 9.3 fl (7.4-10.4); Monocytes Absolute Auto 0.4 K/mm3 (0.1-0.6); Monocytes Percent Auto 5.9 % (2.6-8.5); Neutrophils Absolute Auto 5.7 K/mm3 (1.3-6.7); Neutrophils Percent Auto 81.5 % (45.5-73.1); Platelet Count Result 226 k/mm3 (150-375); Red Blood Count 4.57 M/mm3 (4.6-6.20); Red Cell Distribution Width 13.9 % (11.5-14.5); White Blood Count 6.9 K/mm3 (4.5-10.0)
[2024-04-15 09:41] LABS: Alanine Aminotransferase 22 U/L (6-50); Albumin Level 4.3 g/dL (3.5-5.1); Alkaline Phosphatase 83 U/L (38-126); Anion Gap 5 mmol/L (4-12); Aspartate Amino Transferase 22 U/L (17-59); Bilirubin,Total 0.9 mg/dL (0.2-1.3); Blood Urea Nitrogen 22 mg/dL (9-20); Calcium 9.2 mg/dL (8.4-10.2); Carbon Dioxide 32 mmol/L (22-30); Chloride 102 mmol/L (98-107); Cholesterol 122 mg/dL (0-200); Estimated Glomerular Filt Rate > 60; Glucose 103 mg/dL (65-110); HDL Direct 55 mg/dL; Magnesium 2.1 mg/dL (1.6-2.3); Potassium 3.9 mmol/L (3.4-5.0); Sodium 139 mmol/L (137-145); Triglycerides 39 mg/dL (<150)
[2024-04-15 09:52] LABS: LDL Cholesterol Direct 55 mg/dL
[2024-04-15 10:11] LABS: Prostate Specific Antigen 4.6 ng/mL (< OR = 4.0)
[2024-04-15 10:12] LABS: Hemoglobin A1C 5.1 % (<5.7)
[2024-04-15 10:50] LABS: Vitamin D 25 Hydroxy 30.8 ng/mL
[2024-04-15 11:03] LABS: Thyroid Stimulating Hormone Reflex 0.875 uIU/mL (0.465-4.68)
== END 2024-04-15 09:12 | disposition home or self-care (01) ==
LOC: ANHLAB 09:12
PROVIDERS: PCP Nurse Practitioner Adult Health; Visit Provider Nurse Practitioner Adult Health
DX: E66.9 Obesity, unspecified (principal); I10 Essential (primary) hypertension; Z12.5 Encounter for screening for malignant neoplasm of prostate; R53.83 Other fatigue; Z98.84 Bariatric surgery status
CPT/HCPCS: 36415; 80053; 80061; 82306; 82607; 83036; 83735; 84153; 84443; 85025; G0103

== ENCOUNTER 2024-05-15 14:59 | Outpatient (CLI) | payer BC, SELFPAY ==
[2024-05-15 15:22] LABS: Add Urine Microscopic? NO; Appearance Urine Clear (Clear); Bilirubin Urine Negative (Negative); Blood Urine Negative (Negative); Color Urine Yellow (Yellow); Glucose Urine UA Negative (Negative); Ketones Urine Negative (Negative); Leukocyte Esterase Ur Negative LEU/UL (Negative); Nitrate Urine Negative (Negative); Protein Urine Negative (Negative); Specific Grav Ur 1.024 (1.001-1.035); pH Urine 5.5 (5.0-9.0)
[2024-05-15 15:29] LABS: INR 0.9; Prothrombin Time 12.4 Seconds (11.1-14.7)
[2024-05-15 15:30] LABS: Partial Thromboplastin Time 25.2 Seconds (22.3-36.8)
== END 2024-05-15 15:00 | disposition home or self-care (01) ==
LOC: ANHLAB 15:00
PROVIDERS: PCP Nurse Practitioner Adult Health; Visit Provider Neurological Surgery
DX: M48.062 Spinal stenosis, lumbar region with neurogenic claudication (principal); Z01.818 Encounter for other preprocedural examination
CPT/HCPCS: 36415; 81003; 85610; 85730

== ENCOUNTER 2025-02-01 13:19 | Outpatient (CLI) | payer OTHER, SELFPAY ==
--- NOTE | ~2025-02-01 | CT_ITS ---
EXAMINATION: CT pelvis wo con DATE: 02/01/2025 14:20 INDICATION: Sacrococcygeal disorder TECHNIQUE: Computed tomography (CT) of the pelvis was performed without intravenous contrast. Automat ed exposure control and iterative reconstruction technique were employed.The dose-length product was 1074.44 mGy-cm. COMPARISON: None FINDINGS: 4 mm retrolisthesis L5 on S1. Moderate to severe disc height loss with vacuum phenomena at L3-L4 and L5-S1 and moderate disc height loss at L4-L5. Bone alignment is otherwise normal. No fracture or susp ected osteonecrosis. Disc bulges at L3-L4 through L5-S1. This results in moderate central canal steno sis at L3-L4 and mild central canal stenosis at L5-S1. L4 laminectomy posterior decompression at L4-L 5 with partial L4 laminectomy. Moderate osteoarthritis at the bilateral sacroiliac joints. Sacrum and coccyx are otherwise unremarkable. There is also mild to moderate bilateral hip osteoarthritis. Visu alized portions of bowels including the appendix are normal. Couple small metallic densities at the l eft side of the prostate which could represent surgical clips, radiotherapy seeds or more likely fidu cial markers. Bladder is normal. No free fluid in the pelvis. Mild edema in the presacral soft tissue s. Dystrophic calcifications along the ventricular margin of the pelvis consistent with Peyronie's di sease. No pathologically enlarged pelvic or inguinal lymphadenopathy. IMPRESSION: 1. Moderate to severe lower lumbar spondylosis with L4-5 posterior decompression with L4 partial lami nectomy. 2. Moderate bilateral sacroiliac osteoarthritis and mild to moderate bilateral hip osteoarthritis. 3. Peyronie's disease. Reviewed, dictated and finalized at location A. IMPRESSION: 1. Moderate to severe lower lumbar spondylosis with L4-5 posterior decompressio n with L4 partial laminectomy. 2. Moderate bilateral sacroiliac osteoarthritis and mild to moderate bilateral hip osteoarthritis. 3. Peyronie's disease.
--- OUTSIDE RECORDS SUMMARY | 2025-02-01 13:30 | XMS_ITS | Clinical Summary ---
Author Organization [facility] Address [address] [address] Care Team Providers Care Delivery Specialist Name Role Phone Unavailable Primary Care Provider Unavailabl e Allergies No known active allergies Medications metoprolol succinate (TOPROL XL) 50 mg Extended Release 24 hour tablet Take 1 Tablet by mouth daily. 04/29/2022 Active amLODIPine (NORVASC) 5 mg tablet Take 5 mg by mouth daily. 09/29/2021 Active atorvastatin (LIPITOR) 80 mg tablet Take 1 Tablet by mouth daily. 06/03/2022 Active ezetimibe (ZETIA) 10 mg tablet Take 1 Tablet by mouth daily. 06/02/2022 Active aspirin (THERESA CHEWABLE) 81 mg Tablet, Chewable Take 81 mg by mouth daily. Active DULoxetine (CYMBALTA) 30 mg Capsule, Delayed Release(E.C.) Take 30 mg by mouth daily. Active DULoxetine (CYMBALTA) 60 mg Capsule, Delayed Release(E.C.) Take 60 mg by mouth daily. Active omeprazole (PriLOSEC) 40 mg Capsule, Delayed Release(E.C.) Take 1 Capsule by mouth 1 time daily as needed. Active methocarbamoL (ROBAXIN) 500 mg tablet Take 500 mg by mouth 4 times daily. Active traMADoL (ULTRAM) 50 mg tabletIndicatio ns:Post-op pain Take 1 Tablet (50 mg) by mouth every 6 hours as needed for Pain. 28 Tablet 04/22/2023 12:01 PM CDT 04/21/2023 Active ondansetron (ZOFRAN ODT) 4 mg Tablet, Rapid Dissolve Dissolve 1 tablet on top of tongue, then swallow with saliva every 6 hours as needed for Nausea/Vomiti ng. 28 Tablet 04/22/2023 12:01 PM CDT 04/21/2023 Active losartan (COZAAR) 100 mg tablet Start 04/23: Take 1 Tablet (100 mg) by mouth daily. 15 Tablet 04/22/2023 3:44 PM CDT 04/23/2023 Active Active Problems Problem Noted Date Diagnosed Date Class 3 severe obesity due t o excess calories with serious comorbidity and body mass index (BMI) of 50.0 to 59.9 in adult 04/21/2023 General medical exam 04/21/2023 Postoperative nausea and vomiting 04/21/2023 Postoperative pain 04/21/2023 Psoriatic arthritis 04/21/2023 BYRON (obstructive sleep apnea) 04/21/2023 Hypertension, essential 04/21/2023 Type 2 diabetes mellitus wit hout complication, without long-term current use of insulin 04/21/2023 Ischemic heart disease 04/21/2023 Gastroesophageal reflux disease without esophagi tis 04/21/2023 Anxiety and depression 04/21/2023 Dyslipidemia 04/21/2023 Immunizations Immunization Administration Dates Next Due INFLUENZA VACCINE QUADRIVALENT 6 MOS UP IM 04/22 INFLUENZA VACCINE QUADRIVALENT 6 MOS UP PF IM Social History Tobacco Use Types Packs/Day Years Used Date Smoking Tobacco: Never Smokeless Tobacco: Never Alcohol Use Standard Drinks/Week Comments Yes 0 (1 standard drink = 0.6 oz pur e alcohol) rare Sex and Gender Information Value Date Recorded Sex Assigned at Not on file Legal Sex Male 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 Gender Identity Not on file Sexual Orientation Not on file Last Filed Vital Signs Vital Sign Reading Time Taken Comments Blood Pressure 150/83 04/22/2023 2:00 PM CDT Pulse 91 04/22/2023 11:09 AM CDT Temperature 37.2 C (99 F) 04/22/2023 11:09 AM CDT Respiratory Rate 20 04/22/2023 11:09 AM CDT Oxygen Saturation 98% 04/22/2023 11:09 AM CDT Inhaled Oxygen Concentration - - Weight 206.8 kg (456 lb) 04/21/2023 11:40 AM CDT Height 188 cm (6' 2) 04/21/2023 11:40 AM CDT Body Mass Index 58.55 04/21/2023 11:40 AM CDT Plan of Treatment Health Maintenance Due Date Last Done Comments DIABETES ANNUAL FOOT EXAM 01/20/1990 DIABETES ANNUAL RETINAL EXAM 01/20/1990 DIABETES HBA1C Q 6 MONTHS 01/20/1990 DIABETES MICROALBUMIN ANNUAL SCREEN 01/20/1990 LDL CHOLESTEROL ANNUAL 01/20/1990 DTAP/TDAP/TD VACCINES (1 - Tdap) 01/20/1991 HEPATITIS B VACCINES (1 of 3 - 19+ 3-dose series) 01/20/1991 COLORECTAL SCREENING 01/20/2017 Colorectal Cancer Screening 01/20/2017 FIT-DNA Q 3 years 01/20/2017 FIT/FOBT Q 1 year 01/20/2017 Flex Sig/CT Colonography Q 5 years 01/20/2017 ZOSTER VACCINE (1 of 2) 01/20/2022 INFLUENZA VACCINE (#1) 2025 06/24/2021, 2019 Medical Devices Implanted Type Area Machinery Dismantler Device Identifier Shelf Expiration Date Model / Serial / Lot Seamguard Endogia 60 Blk [id number] - [id number] Implanted:Qt y: 1 on 04/21/2023 by Matthew Coronel MD at [facility] Biological N/A: Stomach [employer] [id number] 12/23/2025 12BSGTRI 60B / / [id number] Seamguard Endogia 60 Prpl [id number] - [id number] Implanted:Qt y: 1 on 04/21/2023 by Matthew Coronel MD at [facility] Biological N/A: Stomach [employer] [id number] 12/21/2025 12BSGTRI 60P / / [id number] Seamguard Endogia 60 Prpl [id number] - [id number] Implanted:Qt y: 1 on 04/21/2023 by Matthew Coronel MD at [facility] Biological N/A: Stomach [employer] [id number] 12/21/2025 12BSGTRI 60P / / [id number] Seamguard Endogia 60 Prpl [id number] - [id number] Implanted:Qt y: 1 on 04/21/2023 by Matthew Coronel MD at [facility] Biological N/A: Stomach [employer] [id number] 12/21/2025 12BSGTRI 60P / / [id number] Seamguard Endogia 60 Prpl [id number] - [id number] Implanted:Qt y: 1 on 04/21/2023 by Matthew Coronel MD at [facility] Biological N/A: Stomach [employer] [id number] 12/08/2025 12BSGTRI 60P / / [id number] Slag Wheeler Ligamax Endo Multi Clip 5mm [id number] - [id number] Implanted:Qt y: 1 on 04/21/2023 by Matthew Coronel MD at [facility] Clip N/A: Stomach [employer] [id number] 01/16/2028 EL5ML / / [id number] Dental Implants Cardiac Stent Insurance RX [employer] Commercial RX [employer] PLANS (INTERNAL) [facility] Internal Plans Advance Directives For more information, please contact: [phone] * Full Code (Latest Code Status on File) Date Activated Date Inactivated Comments 04/21/2023 8:28 AM 04/22/2023 5:41 PM * Full Code Date Activated Date Inactivated Comments 04/21/2023 6:11 AM 04/21/2023 8:28 AM
--- OUTSIDE RECORDS SUMMARY | 2025-02-01 13:30 | XMS_ITS ---
Author Organization [facility] Address [address] [place] [id number] Care Team Providers Care Cake Mixer Name Role Phone Rochelle Grayson MD Unavailable Clarice Gold NP Primary Care Provider [phone] Active Problems Problem Noted Date Diagnosed Date Preoperative cardiovascular examination 05/12/20 Assessment & Plan (05/12/2024 2:44 PM CDT): Can exceed 4 Mets of exertion without cardiovascular symptoms. EKG benign. I feel he can proceed with his neurosurgery without any additional cardiac investigation. Sinusitis 05/18/2023 Arthralgia of both lower legs 05/04/2023 Anxiety and depression 04/21/2023 Dyslipidemia 04/21/2023 Gastroesophageal reflux disease without esophagi tis 04/21/2023 Postoperative pain 04/21/2023 BYRON (obstructive sleep apnea) 04/21/2023 Type 2 diabetes mellitus wit hout complication, without long-term current use of insulin 04/21/2023 Arthralgia of left knee 04/16/2023 Intermittent claudication 03/26/2023 Edema of lower extremity 03/17/2023 Malignant tumor of prostate 11/08/2022 Abdominal bloating 11/08/2022 Chronic pain of both knees 03/13/2022 Testicular hypofunction 01/12/2022 Primary erectile dysfunction 01/12/2022 Anterior epistaxis 12/08/2021 Granulomatosis with polyangiitis 12/08/2021 Abnormality of testosterone 06/01/2021 Chronic left hip pain 05/29/2021 Psoriatic arthritis 03/20/2021 Osteoarthritis of knee 03/20/2021 Spinal stenosis, lumbar arielle on, without neurogenic claudication 01/15/2021 Lumbar radiculopathy 01/15/2021 Hyperglycemia 12/02/2020 Prediabetes 11/13/2020 Hyperinsulinism 11/13/2020 Morbid obesity with BMI of 50.0-59.9, adult 03/20 Assessment & Plan (04/17/2020 3:42 PM CDT): Has spent several years attempting weight loss without success. Plan: Refer to [facility]'s bariatric program Assessment & Plan (04/07/2019 5:02 PM CDT): Have again offered to refer him for surgical weight loss Assessment & Plan (04/13/2018 3:23 PM CDT): Needs to pursue significant weight loss. Assessment & Plan (10/06/2017 3:14 PM CDT): Discussed the importance of further weight loss and that if he is not successful then surgical weight loss might be an option Assessment & Plan (04/08/2017 4:02 PM CDT): Had a lengthy discussion regarding meaningful weight loss. He has recently undergone injections in his back in feels he can exercise more. Have encouraged him to exercise and limit his caloric intake Dyspepsia 04/08/2017 Assessment & Plan (04/08/2017 4:03 PM CDT): Describe symptoms suggestive of gastro as esophageal reflux. Have encouraged him to purchase intake [id number] Nexium. If his symptoms are not improved in a month that he is to contact us at which time we may consider pursuing stress testing since his symptoms are both postprandial and exertional Body mass index 40+ - severely obese 10/01/2016 Overview (12/11/2016): Body mass index 40+ - severely obese Hyperlipidemia 10/01/2016 Overview (12/11/2016): Hyperlipidemia Assessment & Plan (05/12/2024 2:45 PM CDT): Extremely well controlled. Total cholesterol only 101 mg/dL today. We will discontinue Zetia. Continue Lipitor. Assessment & Plan (05/19/2023 3:17 PM CDT): Well controlled. LDL today is 56 mg/dL Assessment & Plan (05/22/2022 4:25 PM CDT): Reasonably well controlled today with an LDL is 67 mg/dL. Continue atorvastatin. Assessment & Plan (05/02/2021 3:26 PM CDT): Lipid panel much improved. LDL today is 54 mg/dL. Continue Lipitor. Assessment & Plan (04/17/2020 3:41 PM CDT): Worsening cholesterol. Already on a maximum dose of Lipitor. Add Zetia. May need to consider PCSK9 inhibitor. Assessment & Plan (04/07/2019 5:01 PM CDT): LDL excessive at 101 mg/dL. Emphasized the importance of diet exercise and weight loss. If no improvement at next appointment then will need to advance his therapy Pain in toe 09/14/2016 Chest pain 04/02/2016 Overview (10/22/2016): Chest pain Dyspnea on exertion 12/26/2015 Overview (10/24/2016): Dyspnea on exertion Coronary arteriosclerosis in [place] artery 09/25 Overview (10/24/2016): Coronary arteriosclerosis in [place] artery Assessment & Plan (05/12/2024 2:44 PM CDT): Doing well. No angina on his current regimen. Continue metoprolol and aspirin. Continue atorvastatin. Assessment & Plan (05/19/2023 3:16 PM CDT): Seems to be doing well. He inquired about surveillance stress testing and I have recommended against surveillance testing. Continue aspirin and statin. Assessment & Plan (05/22/2022 4:25 PM CDT): Continues to do well. Continue secondary prevention with aspirin and statin. Assessment & Plan (05/02/2021 3:25 PM CDT): Doing well. No chest discomfort on his current regimen. Continue aspirin and statin. Assessment & Plan (04/17/2020 3:40 PM CDT): Appears to be stable. No angina. Continue current therapy. Assessment & Plan (04/07/2019 5:01 PM CDT): Stable. No angina. Continue current therapy. Assessment & Plan (04/13/2018 3:22 PM CDT): Appears to be stable. Question whether his chest discomfort has a cardiac basis as there is a clear cut association with meal ingestion. Advised him to contact me should the pattern change. He indicates that this discomfort is in no way similar to his previous angina. Assessment & Plan (10/06/2017 3:13 PM CDT): Stable. No angina. Continue current therapy. Assessment & Plan (04/08/2017 4:01 PM CDT): Appears to be stable. Continue current therapy. Essential hypertension 09/26/2015 Overview (10/24/2016): Essential hypertension Assessment & Plan (05/19/2023 3:17 PM CDT): Cautioned that he may develop symptomatic hypotension on his weight loss journey. Advised to contact us her monitor his blood pressure should he began to experience symptoms of lightheadedness. Assessment & Plan (05/22/2022 4:25 PM CDT): Well controlled. Continue current prescription medications. Assessment & Plan (05/02/2021 3:26 PM CDT): Blood pressure acceptable. Caution him that with his weight loss he may developed hypotension requiring an adjustment in his medications but for now will continue metoprolol and losartan. Assessment & Plan (04/13/2018 3:23 PM CDT): Well controlled. Continue current therapy. Assessment & Plan (10/06/2017 3:14 PM CDT): Well controlled. Continue current therapy. Assessment & Plan (04/08/2017 4:02 PM CDT): Well controlled. Continue current therapy. Abnormal result of cardiovascular function study 09/11/2015 Overview (10/22/2016): Abnormal results of cardiovascular function studies Current Treatment and Therapy Plans No current plan information found. Past Treatment and Therapy Plans No past plan information found. Lifetime Dose Tracking * Chemical Lifetime Dose Automatic Entry Manual Entr y Fluoro Time 2.683 minutes 2.683 minutes 0 minutes Air kerma at the reference point (Ka,r) 105.45 mGy 1 05.45 mGy 0 mGy Resolved Problems Problem Noted Date Diagnosed Date Resolved Date Elevated PSA 07/07/2022 05/04/2023 Osteoarthritis of lumbar spine 04/02/2016 05/29/2021 Overview (10/22/2016): Lumbar spondylosis Exercise-induced angina 09/11/201503/21 Overview (10/22/2016): Angina of effort Morbid obesity 09/11/2015 04/08/2017 Overview (10/22/2016): Morbid obesity
--- OUTSIDE RECORDS SUMMARY | 2025-02-01 13:30 | XMS_ITS | Referral Summary ---
Author Organization [facility] Address [address] [place] [address] Care Team Providers Care Solid Waste Collection Worker Name Role Phone Rochelle Grayson MD Unavailable Clarice Gold NP Primary Care Provider Allergies No known active allergies Medications aspirin (ASPIRIN LOW DOSE) 81 mg tablet take 1 tablet by oral route every day 0 0 09/11/2015 Active omeprazole (PriLOSEC) 40 mg capsule as needed Active traMADoL (ULTRAM) 50 mg tablet Take 1 tablet (50 mg total) by mouth 2 (two) times a day 03/28/2021 Active amLODIPine (NORVASC) 5 mg tablet Take 1 tablet (5 mg total) by mouth daily 09/29/2021 Active predniSONE (DELTASONE) 5 mg tablet 04/13/2022 Active losartan (COZAAR) 100 mg tablet Take 1 tablet (100 mg total) by mouth daily 04/23/2023 Active metoprolol XL (TOPROL-XL) 50 mg extended release tablet TAKE 1 TABLET BY MOUTH EVERY DAY 90 tablet 3 05/20/2023 Active gabapentin (NEURONTIN) 300 mg capsule TAKE 1 TABLET BY MOUTH IN MORNING, AND TAKE 2 TABLETS BY MOUTH AT BEDTIME 04/29/2024 Active azaTHIOprine (IMURAN) 50 mg tablet Take 2 tablets (100 mg total) by mouth daily 04/26/2024 Active atorvastatin (LIPITOR) 80 mg tablet TAKE 1 TABLET BY MOUTH EVERY DAY 90 tablet 3 10/18/2024 Active Active Problems Problem Noted Date Diagnosed [...] weight loss without success. Plan: Refer to [facility]'s bariatric program Assessment & Plan (04/07/2019 5:02 [...] reflux. Have encouraged him to purchase intake [id number] Nexium. If his symptoms are not improved [...] (10/24/2016): Dyspnea on exertion Coronary arteriosclerosis in [place] artery 09/25 Overview (10/24/2016): Coronary arteriosclerosis in [place] artery Assessment & Plan (05/12/2024 2:44 PM [...] (10/22/2016): Abnormal results of cardiovascular function studies Resolved Problems Problem Noted Date Diagnosed Date Resolved Date Elevated PSA 07/07/2022 05/04/2023 Osteoarthritis of lumbar spine 04/02/2016 05/29/2021 Overview (10/22/2016): Lumbar spondylosis Exercise-induced angina 09/11/201503/21 Overview (10/22/2016): Angina of effort Morbid obesity 09/11/2015 04/08/2017 Overview (10/22/2016): Morbid obesity Immunizations Immunization Administration Dates Next Due Influenza, Quadrivalent, Split, Intramuscular Influenza, Quadrivalent, Spl it, Preservative Free, Intramuscular 08/14/2022,06/24/2021 Social History Tobacco Use Types Packs/Day Years Used Date Smoking Tobacco: Never Smokeless Tobacco: Never Tobacco Cessation:Counseling Given: Not Answered Alcohol Use Standard Drinks/Week Comments Yes 6 (1 standard drink = 0.6 oz pur e alcohol) AUDIT-C Answer Date Recorded Q1: How often do you have a drink containing alc ohol? Monthly or less 12/11/2021 Q2: How many drinks containi ng alcohol do you have on a typical day when you are drinking? 1 or 2 12/11/2021 Q3: How often do you have si x or more drinks on one occasion? Less than monthly 12/11/2021 Sex and Gender Information Value Date Recorded Sex Assigned at Not on file Legal Sex Male 11:42 AM PLASTER PATTERNMAKER Gender Identity Male 06/24/2020 11:12 AM PLASTER PATTERNMAKER Sexual Orientation Straight 06/24/2020 11 :12 AM PLASTER PATTERNMAKER Last Filed Vital Signs Vital Sign Reading Time Taken Comments Blood Pressure 128/84 05/12/2024 2:18 PM CDT Pulse 68 05/12/2024 2:18 PM CDT Temperature 36.1 C (97 F) 07/30/2023 3:03 PM PLASTER PATTERNMAKER Respiratory Rate 16 07/30/2023 3:03 PM PLASTER PATTERNMAKER Oxygen Saturation 98% 05/12/2024 2:18 PM CDT Inhaled Oxygen Concentration - - Weight 131.5 kg (290 lb) 05/12/2024 2:18 PM CDT Height 188 cm (6' 2) 05/12/2024 2:18 PM CDT Body Mass Index 37.23 05/12/2024 2:18 PM CDT Plan of Treatment Not on file Goals Goal Patient Goal Type Associated Problems Recent Progress Patient-Stated? Author CCM Chronic Pain Care Plan Chronic Care Management No change(07/30 3:04 PM PLASTER PATTERNMAKER) Jane Jimenez, RN Note: Problem: Chronic Pain Goals: 1. Minimize further functional decline 2. Maximize quality of life 3. Control pain Strategies: - Activity/exercise program recommendation - Conservative stepwise pain medicine strategy with multi-disciplinary approach - Recommend healthy lifestyle strategies and compensatory methods as needed Medical Devices Implanted Type Area Clerical And Office Support Workers Device Identifier Shelf Expiration Date Model / Serial / Lot Other - See Comments Other - see comments N/A: Mouth Description:2 dental implant s. Cardiac Stent- 7 Implanted:07/2016 (Quantity not on file) Heart Procedures Procedure Name Priority Date/Time Associated Diagnosis Comments POCT LIPID PANEL Routine 05/12/2024 2:19 PM CDT Mixed hyperlipidemia from Last 3 Months or Most Recently Relevant to Health Maintenance Results * POCT lipid panel (05/12/2024 2:19 PM CDT) Cholesterol, POC 101 mg/dL HDL, POC 61 mg/dL Triglycerides, POC 45 mg/dL LDL Cholesterol POC 31 mg/dL Chol/HDL Ratio, POC 1.7 Non-HDL Cholesterol, POC 40 mg/dL Cholesterol Total, POC 101 mg/dL Capillary blood 05/12/2024 2 :19 PM CDT us Abelino Rodriguez MD POINT OF CARE TEST ORD ERABLES Edited Result - Final from Last 3 Months or Most Recently Relevant to Health Maintenance Insurance [employer] Care Teams Solid Waste Collection Worker Relationship Specialty Start Date End Date Clarice Gold NP [address] [place] [address] PCP - General Nurse Practitioner 05/12/24 Rochelle Grayson MD Consulting Physician Pain Management 04/24/22
--- OUTSIDE RECORDS SUMMARY | 2025-02-01 13:30 | XMS_ITS | Clinical Summary ---
Author Organization [facility] Address [address] [place] [address] Care Team Providers Care Mold Swabber Name Role Phone Rochelle Grayson MD Unavailable Clarice Gold NP Primary Care Provider [phone] Allergies No known active allergies Medications aspirin [...] reflux. Have encouraged him to purchase intake [id number] Nexium. If his symptoms are not improved [...] (10/24/2016): Dyspnea on exertion Coronary arteriosclerosis in [place] artery 09/25 Overview (10/24/2016): Coronary arteriosclerosis in [place] artery Assessment & Plan (05/12/2024 2:44 PM [...] Quadrivalent, Spl it, Preservative Free, Intramuscular 08/14/2022,06/24/2021 Surgical History Surgery Date Site/Laterality Comments CARDIAC STENT PLACEMENT 09/17/2015 - 10/17/2015 WISDOM TOOTH EXTRACTION 07/19/2000 - 07/18/2001 STOMACH SURGERY 04/21/2023 sleeve Medical History Medical History Date Comments Hypertension Hypertension Hyperlipidemia Hyperlipidemia; Comments: MMA 09/10/2015 - Coronary artery disease GERD (gastroesophageal reflux disease) Anxiety 03/2019 Arthritis Depression 03/2019 Heart disease 09/2015 Sleep apnea Family History Medical History Relation Name Comments Cancer Brother 1 Elias Meinhardt Coronary artery disease Brother 1 Elias Meinhardt Coronary artery disease; Depression Brother 1 Elias Meinhardt Diabetes Brother 1 Elias Meinhardt Heart disease Brother 1 Elias Meinhardt Diabetes Brother 2 Domo Meinhardt Heart disease Brother 3 Chito Meinhardt COPD Father Domoshayla Johnsnhardt Cancer Father Domo Meinhardt Coronary artery disease Father Domoshayla Johnsnhardt Co ronary artery disease; Hearing loss Father Domo Meinhardt Heart disease Father Domo Meinhardt Coronary artery disease Mother Allie Askewar dt Heart attack Mother Allie Meinhardt Heart disease Mother Allie Meinhardt Coronary artery disease Sister Relation Name Status Comments Brother 1 Elias Meinhardt Brother 2 Domo Meinhardt Brother 3 Chito Meinhardt Father Domoshayla Johnsnhardt Mother Allie Johnsnhardt Sister Social History Tobacco Use Types Packs/Day Years [...] on file Legal Sex Male 11:42 AM PAPER REEL OPERATOR Gender Identity Male 06/24/2020 11:12 AM PAPER REEL OPERATOR Sexual Orientation Straight 06/24/2020 11 :12 AM PAPER REEL OPERATOR Obstetrics History Last Filed Vital Signs Vital Sign Reading Time Taken Comments Blood Pressure 128/84 05/12/2024 2:18 PM CDT Pulse 68 05/12/2024 2:18 PM CDT Temperature 36.1 C (97 F) 07/30/2023 3:03 PM PAPER REEL OPERATOR Respiratory Rate 16 07/30/2023 3:03 PM PAPER REEL OPERATOR Oxygen Saturation 98% 05/12/2024 2:18 PM CDT Inhaled Oxygen Concentration - - Weight 131.5 kg (290 lb) 05/12/2024 2:18 PM CDT Height 188 cm (6' 2) 05/12/2024 2:18 PM CDT Body Mass Index 37.23 05/12/2024 2:18 PM CDT Plan of Treatment Health Maintenance Due Date Last Done Comments Albumin Creatinine Ratio, Urine 1972 Colon Cancer Screening-Colonoscopy 1972 Depression Screening 1972 Hemoglobin A1C 1972 Hepatitis C Screening 1972 Prostate Cancer Screening-PSA 1972 eGFR 1972 Dilated Eye Exam 1972 Foot Exam 1972 DTaP/Tdap/Td Vaccine (1 - Tdap) 01/20/1983 Hepatitis B Screening 01/20/1990 Regular Well Visit/Exam 18-64 01/20/1990 Pneumococcal vaccine <65 (1 of 2 - PCV) 01/20/1991 Zoster Vaccine (1 of 2) 01/20/1991 Influenza Vaccine (#1) 2025 3, 06/24/2021, 04/22/2020 Lipid Panel 05/12/2025 05/12/2024, 11/0 07/2022, 05/22/2022, Additional history exists Goals Goal Patient Goal Type Associated Problems Recent Progress Patient-Stated? Author CCM Chronic Pain Care Plan Chronic Care Management No change(07/30 3:04 PM PAPER REEL OPERATOR) No Jane Seals RN Note: Problem: Chronic Pain Goals: 1. Minimize further functional decline 2. Maximize quality of life 3. Control pain Strategies: - Activity/exercise program recommendation - Conservative stepwise pain medicine strategy with multi-disciplinary approach - Recommend healthy lifestyle strategies and compensatory methods as needed Medical Devices Implanted Type Area Land Leases And Rentals Manager Device Identifier Shelf Expiration Date Model / [...] Most Recently Relevant to Health Maintenance Insurance [employer] ACC[employer]OS [employer] Care Teams Mold Swabber Relationship Specialty Start Date End Date Clarice Gold NP [address] [place] [id number] PCP - General Nurse Practitioner 05/12/24 Rochelle Grayson MD Consulting Physician Pain Management 04/24/22
--- OUTSIDE RECORDS SUMMARY | 2025-02-01 13:30 | XMS_ITS | Encounter Summary ---
Author Organization [facility] Address [facility] [place] [address] Care Team Providers Care Operations Trainer Name Role Phone None, Provider Primary Care Provider Janee ble Encounter Details Date Type Department Care Team (Late st Contact Info) Description 07/01/2022 Prep for Procedure [facility] Pre-Admission Testing [place] [id number] Seven Bello MD [address] [facility] [address] [facility] [place] [address] Social History Tobacco Use Types Packs/Day Years Used Date Smoking Tobacco: Never Smokeless Tobacco: Never Alcohol Use Standard Drinks/Week Comments Yes 3 (1 standard drink = 0.6 oz pur e alcohol) none in the last month Sex and Gender Information Value Date Recorded Sex Assigned at Not on file Legal Sex Male 4:55 PM PUBLIC HEALTH PROGRAM MANAGER Gender Identity Not on file Sexual Orientation Not on file COVID-19 Exposure Response Date Recorded In the last 10 days, have yo u been in contact with someone who was confirmed or suspected to have Coronavirus/COVID-19? No / Unsure 07/01/2022 2:22 PM PUBLIC HEALTH PROGRAM MANAGER documented as of this encounter Plan of Treatment Not on file documented as of this encounter Results * (ABNORMAL) COMPREHENSIVE METABOLIC PANEL (07/01/2022 2:26 PM PUBLIC HEALTH PROGRAM MANAGER) [facility] GLUCOSE 79 70 - 99 MG/DL 07/01/2022 3:16 PM PUBLIC HEALTH PROGRAM MANAGER [facility] BUN 27(H) 7 - 18 MG/DL 07/01/2022 3:16 PM [facility] CREATININE S/P/B 1.28 0.7 - 1.3 MG/DL 07/01/2022 3:16 PM [facility] SODIUM S/P/B 142 136 - 145 MMOL/L 07/01/2022 3:16 PM [facility] POTASSIUM S/P/B 3.8 3.5 - 5.1 MMOL/L 07/01/2022 3:16 PM [facility] CHLORIDE S/P/B 108 100 - 108 MMOL/L 07/01/2022 3:16 PM [facility] CO2 30.6 21 - 32 MMOL/L 07/01/2022 3:16 PM [facility] CALCIUM S/P/B 9.6 8.5 - 10.1 MG/DL 07/01/2022 3:16 PM [facility] BILIRUBIN TOTAL S/P/B 0.3 0.2 - 1.2 MG/DL 07/01/2022 3:16 PM [facility] Comment: THIS ASSAY IS NOT RECOMMENDED FOR PATIENTS UNDERGOING TREATMENT WITH ELTROMBOPAG DUE TO THE POTENTIAL FOR FALSELY ELEVATED RESULTS. TOTAL PROTEIN S/P/B 7.8 6.4 - 8.2 G/DL 07/01/2022 3:16 PM [facility] ALBUMIN S/P/B 4.3 3.4 - 5.0 G/DL 07/01/2022 3:16 PM [facility] AST 24 15 - 37 U/L 07/01/2022 3:16 PM [facility] ALT 55 16 - 60 U/L 07/01/2022 3:16 PM [facility] ALKALINE PHOSPHATASE S/P/B 69 50 - 136 U/L 07/01/2022 3:16 PM [facility] ANION GAP 3.4(L) 5 - 15 MMOL/L 07/01/2022 3:16 PM PUBLIC HEALTH PROGRAM MANAGER [facility] BUN CREATININE RATIO 21.1 6 - 26 07/01/2022 3:16 PM [facility] A/G RATIO 1.2 1.0 - 2.0 RATIO 07/01/2022 3:16 PM [facility] GFR ESTIMATE 68(L) >90 ML/MIN/1.7 3 M2 07/01/2022 3:16 PM PUBLIC HEALTH PROGRAM MANAGER [facility] Comment: NOTE: eGFR is not calculated for patients <18 years of age. This is an estimated GFR calculation using the new CKD EPI creatinine equation without race and so does not require a correction factor for race. This estimated GFR should not be used for calculating drug doses. 07/01/2022 2:26 PM PUBLIC HEALTH PROGRAM MANAGER Seven Bello MD LABORATORY Final Res ult [facility] [address] [place] [address], [place] [phone] * CULTURE URINE (07/01/2022 2:26 PM PUBLIC HEALTH PROGRAM MANAGER) SPEC DESCRIPTION URINE CLEAN CATCH 07/01/2022 2:26 PM PUBLIC HEALTH PROGRAM MANAGER [facility] SPECIAL REQUESTS NO SPECIAL REQUEST 07/01/2022 2:26 PM PUBLIC HEALTH PROGRAM MANAGER [facility] CULTURE RESULT NO GROWTH 2 DAYS 07/03/2022 8:08 AM PUBLIC HEALTH PROGRAM MANAGER [facility] URINE SPECIMEN OBTAINED BY CLEAN CATCH PROCEDURE / Unknown 07/01/2022 2:26 PM PUBLIC HEALTH PROGRAM MANAGER 07/01/2022 2:33 PM PUBLIC HEALTH PROGRAM MANAGER Seven Bello MD MICROBIOLOGY - GENERAL OR DERABLES Final Result [facility] [address] [place] [address], [place] [phone] * (ABNORMAL) URINALYSIS WI REFLEX TO CULTURE (07/01/2022 2:26 PM PUBLIC HEALTH PROGRAM MANAGER) SPECIMEN TYPE URINE CLEAN CATCH 07/01/2022 2:26 PM PUBLIC HEALTH PROGRAM MANAGER [facility] COLOR (U) LIGHT YELLOW 07/01/2022 3:09 PM [facility] TRANSPARENCY CLEAR 07/01/2022 3:09 PM [facility] SPECIFIC GRAVITY (U) 1.028 1.001 - 1.030 07/01/2022 3:09 PM [facility] U PH 5.5 5.0 - 9.0 07/01/2022 3:09 PM [facility] LEUKOCYTES (U) NEGATIVE NEGATIVE 07/01/2022 3:09 PM [facility] NITRITES NEGATIVE NEGATIVE 07/01/2022 3:09 PM [facility] PROTEIN (U) NEGATIVE <30 MG/DL 07/01/2022 3:09 PM [facility] URINE GLUCOSE >1000(A) NORMAL MG/DL 07/01/2022 3:09 PM [facility] KETONES MG/DL (U) NEGATIVE NEGATIVE MG/DL 07/01/2022 3:09 PM [facility] UROBILINOGEN NORMAL NORMAL MG/DL 07/01/2022 3:09 PM [facility] BILIRUBIN (U) NEGATIVE NEGATIVE MG/DL 07/01/2022 3:09 PM [facility] BLOOD (U) NEGATIVE NEGATIVE 07/01/2022 3:09 PM [facility] CULTURE & SENSITIVITY INDICATED? CULTURE IS NOT INDICATED 07/01/2022 3:09 PM PUBLIC HEALTH PROGRAM MANAGER [facility] WBC/HPF <1 <6 /HPF 07/01/2022 3:09 PM PUBLIC HEALTH PROGRAM MANAGER [facility] RBC/HPF <1 <6 /HPF 07/01/2022 3:09 PM PUBLIC HEALTH PROGRAM MANAGER [facility] URINE SPECIMEN OBTAINED BY CLEAN CATCH PROCEDURE / Unknown 07/01/2022 2:26 PM PUBLIC HEALTH PROGRAM MANAGER Seven Bello MD URINE ORDERABLES Final Re sult Performing Organization Address City/[facility]/ZIP Co de Phone Number [facility] [address] [place] [address], [place] [phone] * PROTIME/INR, VENOUS (07/01/2022 2:26 PM PUBLIC HEALTH PROGRAM MANAGER) PROTIME 11.2 10.2 - 12.9 SEC 07/01/2022 3:19 PM PUBLIC HEALTH PROGRAM MANAGER [facility] INR 1.0 07/01/2022 3:19 PM PUBLIC HEALTH PROGRAM MANAGER [facility] Comment: Recommended INR Therapeutic Goals: 2.0-3.0 Routine Therapy 2.5-3.5 Mechanical Prosthetic Valves (High Risk) 07/01/2022 2:26 PM PUBLIC HEALTH PROGRAM MANAGER Seven Bello MD LABORATORY Final Res ult [facility] [address] [place] [address], [place] [phone] * PTT, PARTIAL THROMBOPLASTIN TIME (07/01/2022 2:26 PM PUBLIC HEALTH PROGRAM MANAGER) PTT 29.8 25.1 - 36.5 SEC 07/01/2022 3:19 PM PUBLIC HEALTH PROGRAM MANAGER [facility] 07/01/2022 2:26 PM PUBLIC HEALTH PROGRAM MANAGER [place] Seven Bello MD LABORATORY Final Res ult [facility] [address] [place] [address], [place] [phone] * (ABNORMAL) CBC W/DIFF AUTOMATED (07/01/2022 2:26 PM PUBLIC HEALTH PROGRAM MANAGER) Pathologist [facility] WBC 11.4(H) 4.5 - 11.0 x10'3/uL 07/01/2022 2:53 PM PUBLIC HEALTH PROGRAM MANAGER [facility] RBC 4.95 4.70 - 6.10 x10'6/uL 07/01/2022 2:53 PM PUBLIC HEALTH PROGRAM MANAGER [facility] HGB 15.3 14.0 - 18.0 G/DL 07/01/2022 2:53 PM PUBLIC HEALTH PROGRAM MANAGER [facility] HCT 48.1 43.0 - 54.0 % 07/01/2022 2:53 PM PUBLIC HEALTH PROGRAM MANAGER [facility] MCV 97.2(H) 80.0 - 94.0 FL 07/01/2022 2:53 PM PUBLIC HEALTH PROGRAM MANAGER [facility] MCH 30.9 27.0 - 31.0 PG 07/01/2022 2:53 PM PUBLIC HEALTH PROGRAM MANAGER [facility] MCHC 31.8(L) 32.0 - 36.0 G/DL 07/01/2022 2:53 PM PUBLIC HEALTH PROGRAM MANAGER [facility] RDW 16.6(H) 11.5 - 14.5 % 07/01/2022 2:53 PM PUBLIC HEALTH PROGRAM MANAGER [facility] PLT 306 130 - 400 x10'3/uL 07/01/2022 2:53 PM PUBLIC HEALTH PROGRAM MANAGER [facility] MPV 8.9(L) 9.3 - 12.2 FL 07/01/2022 2:53 PM PUBLIC HEALTH PROGRAM MANAGER [facility] DIFFERENTIAL TYPE AUTOMATED DIFFERENTIAL 07/01/2022 2:53 PM PUBLIC HEALTH PROGRAM MANAGER [facility] NEUTROPHILS % 68.1 % 07/01/2022 2:53 PM PUBLIC HEALTH PROGRAM MANAGER [facility] LYMPHOCYTES % 21.7 % 07/01/2022 2:53 PM PUBLIC HEALTH PROGRAM MANAGER [facility] MONOCYTES % 8.2 % 07/01/2022 2:53 PM PUBLIC HEALTH PROGRAM MANAGER [facility] EOSINOPHILS 0.5 % 07/01/2022 2:53 PM PUBLIC HEALTH PROGRAM MANAGER [facility] BASOPHILS 0.6 % 07/01/2022 2:53 PM PUBLIC HEALTH PROGRAM MANAGER [facility] IMMATURE GRANS % 0.9 % 07/01/20 2:53 PM PUBLIC HEALTH PROGRAM MANAGER [facility] ABS. NEUTROPHILS TOTAL 7.76(H) 1.80 - 7.70 x10'3/uL 07/01/2022 2:53 PM PUBLIC HEALTH PROGRAM MANAGER [facility] ABS. LYMPHOCYTES 2.47 1.00 - 4.80 x10'3/uL 07/01/2022 2:53 PM PUBLIC HEALTH PROGRAM MANAGER [facility] ABS. MONOCYTES 0.94(H) 0.30 - 0.82 x10'3/uL 07/01/2022 2:53 PM PUBLIC HEALTH PROGRAM MANAGER [facility] ABS. EOSINOPHILS 0.06 0.04 - 0.54 x10'3/uL 07/01/2022 2:53 PM PUBLIC HEALTH PROGRAM MANAGER [facility] ABS. BASOPHILS 0.07 0.01 - 0.08 x10'3/uL 07/01/2022 2:53 PM PUBLIC HEALTH PROGRAM MANAGER [facility] ABS. IMMATURE GRANULOCYTES 0.10 0.00 - 0.49 x10'3/uL 07/01/2022 2:53 PM PUBLIC HEALTH PROGRAM MANAGER [facility] 07/01/2022 2:26 PM PUBLIC HEALTH PROGRAM MANAGER us Seven Bello MD LABORATORY Final Res ult [facility] [address] [place] [address], [place] [phone] documented in this encounter Visit Diagnoses Diagnosis Elevated prostate specific antigen (PSA)- Primary Preop examination Preoperative examination, unspecified documented in this encounter Care Teams Operations Trainer Relationship Specialty Start Date End Date None, Provider, PCP - General UNKNOWN PHYSICIAN SPECIALTY 07/01/22 documented as of this encounter
--- OUTSIDE RECORDS SUMMARY | 2025-02-01 13:30 | XMS_ITS | Clinical Summary ---
Author Organization [facility] Address [address] [place] [address] Care Team Providers Care Neurosurgery Research Director Name Role Phone None, Provider MD Primary Care Provider Unavaila ble Allergies No known active allergies Medications losartan-hydroC HLOROthiazide (HYZAAR) 100-25 MG tablet Take 1 tablet by mouth daily. 2 Active atorvastatin (LIPITOR) 80 MG tablet Take 1 tablet by mouth daily. 2 Active ezetimibe (ZETIA) 10 MG tablet Take 1 tablet by mouth daily. 2 Active predniSONE (DELTASONE) 5 mg tablet Take 5 mg by mouth 2 (two) times a day. For arthritis 2 Active metoprolol succinate ER (TOPROL-XL) 50 MG 24 hr tablet Take 1 tablet by mouth daily. 2 Active leflunomide (ARAVA) 10 MG Tab Take 10 mg by mouth daily. 2 Active diclofenac EC (VOLTAREN) 75 MG tablet Take 75 mg by mouth 2 (two) times daily. 2 Active amLODIPine (NORVASC) 5 MG tablet Take 5 mg by mouth daily. 2 Active golimumab (SIMPONI ARIA) 50 MG/4ML injection Inject 12.5 mLs into the vein Once every eight weeks. hasn't had in 3 months- insurance denied Active metFORMIN ER (GLUCOPHAGE-XR) 500 MG 24 hr tablet Take 500 mg by mouth daily. 2 Active folic acid (FOLVITE) 1 MG tablet Take 1 tablet by mouth daily. Active methotrexate (TREXALL) 2.5 MG tablet Take 5 tablets by mouth once. Takes bid weekly Active traMADol (ULTRAM) 50 MG tablet Take 100 mg by mouth 2 (two) times a day. Active buPROPion SR (WELLBUTRIN SR) 150 MG 12 hr tablet Take 1 tablet by mouth daily. Active omeprazole (PRILOSEC) 40 MG capsule Take 1 capsule by mouth daily as needed. Active DULoxetine (CYMBALTA) 60 MG capsule Take 60 mg by mouth daily. For total of 90 mg Active DULoxetine (CYMBALTA) 30 MG capsule Take 30 mg by mouth daily. Active aspirin 81 MG chewable tablet Chew 81 mg by mouth daily. Active acetaminophen (TYLENOL) 500 MG tablet Take 1,000 mg by mouth 2 (two) times a day. Active Active Problems Problem Noted Date Diagnosed Date Elevated PSA 07/07/2022 Family History Medical History Relation Comments COPD Father Heart Disease Father heart valve Diabetes Mother borderline Heart Disease Mother mi Relation Status Comments Father (Age 74) Mother (Age 54) Social History Tobacco Use Types Packs/Day Years Used Date Smoking Tobacco: Never Smokeless Tobacco: Never Tobacco Cessation:Counseling Given: Not Answered Alcohol Use Standard Drinks/Week Comments Yes 3 (1 standard drink = 0.6 oz pur e alcohol) none in the last month Sex and Gender Information Value Date Recorded Sex Assigned at Not on file Legal Sex Male 4:55 PM SOA ARCHITECT Gender Identity Not on file Sexual Orientation Not on file Last Filed Vital Signs Vital Sign Reading Time Taken Comments Blood Pressure 152/85 07/07/2022 10:17 AM SOA ARCHITECT Pulse 75 07/07/2022 10:17 AM SOA ARCHITECT Temperature 36.6 C (97.9 F) 07/07/2022 10:17 AM SOA ARCHITECT Respiratory Rate 16 07/07/2022 10:1 7 AM SOA ARCHITECT Oxygen Saturation 95% 07/07/2022 10: 17 AM SOA ARCHITECT Inhaled Oxygen Concentration - - Weight 210.2 kg (463 lb 6.5 oz) 07/07/2022 7:35 AM SOA ARCHITECT Height 188 cm (6' 2) 07/07/2022 7:35 AM SOA ARCHITECT Body Mass Index 59.5 07/07/2022 7:35 AM SOA ARCHITECT Plan of Treatment Health Maintenance Due Date Last Done Comments Colorectal Cancer Screening Colonoscopy (10 Years) 1972 Annual Physical 01/20/1975 Hepatitis C 01/20/1990 DTaP, Tdap and Td Vaccines ( 1 - Tdap) 01/20/1991 Hepatitis B Vaccines (1 of 3 - 19+ 3-dose series) 01/20/1991 Pneumococcal Vaccine: 50+ Ye ars (1 of 1 - PCV) 01/20/2022 Zoster Vaccines (1 of 2) 01/20/2022 COVID-19 Vaccine (1 - 2023-2 5 season) 2024 Meningococcal B Vaccine Aged Out No l onger eligible based on patient's age to complete this topic Meningococcal Vaccine Aged Out No jake jeffrey eligible based on patient's age to complete this topic RSV Immunizations Under 20 Months Aged Out No longer eligible based on patient's age to complete this topic Medical Devices Implanted Type Area Ore Crusher Device Identifier Shelf Expiration Date Model / Serial / Lot Cardiac Stent Insurance [address] [place] [address] Care Teams Neurosurgery Research Director Relationship Specialty Start Date End Date None, Provider, PCP - General UNKNOWN PHYSICIAN SPECIALTY 07/01/22
--- OUTSIDE RECORDS SUMMARY | 2025-02-01 13:30 | XMS_ITS | Clinical Summary ---
Author Organization [email or web address] Address [address] [place] [address] Care Team Providers Care Golf Course Keeper Name Role Phone Jenni Tamayo CLINICAL RESOURCE MANAGER-MAKING MACHINE CATCHER Primary Care Provider [phone] Source Comments [email or web address],non-owned Affiliates and Associated Physician Practices is amultiple site organization consisting of ambulatory clinics and hospital sitesin [place], [place], [place] and [place]. This disclosure is being madepursuant to the Care Everywhere program and may not contain all information available regarding this patient. Last updated 18.[email or web address] Allergies No known active allergies Medications * Be aware that medications may not be up to date on this document. Alwaysverify current medications with the patient. acetaminophen (Tylenol) 500 MG tablet Take 2 (two) tablets by mouth 2 times daily Active aspirin (Aspirin) 81 MG chew tablet Take 1 (one) tablet by mouth once daily Active atorvastatin (Lipitor) 80 MG tablet Take 1 (one) tablet by mouth once daily 3 Active diclofenac sodium EC (Voltaren) 75 MG tablet Take 1 (one) tablet by mouth 2 times daily 2 Active DULoxetine (Cymbalta) 30 MG capsule Take 1 (one) capsule by mouth once daily 3 Active ezetimibe (Zetia) 10 MG tablet Take 1 (one) tablet by mouth once daily 3 Active folic acid (Folvite) 1 MG tablet Take 1 (one) tablet by mouth once daily Active losartan (Cozaar) 100 MG tablet Take 1 (one) tablet by mouth once daily 3 Active metFORMIN ER 24hr (Glucophage XR) 500 MG tablet Take 1 (one) tablet by mouth once daily 3 Active methocarbamol (Robaxin) 500 MG tablet Take 1 (one) tablet by mouth 3 times daily as needed 3 Active methotrexate 2.5 MG tablet TAKE 5 TABLETS IN IN THE MORNING AND 5 TABLETS IN IN THE EVENING BY MOUTH ONCE WEEKLY 3 Active metoprolol succinate XL 24hr (Toprol XL) 50 MG tablet Take 1 (one) tablet by mouth once daily 2 Active BD Hypodermic Needle 18G X 1 MISC as directed 2 Active pantoprazole EC (Protonix) 40 MG tablet Take 1 (one) tablet by mouth once daily 3 Active secukinumab (Cosentyx Sensoready Pen) 150 MG/ML auto-injector Inject 300 (three hundred) mg subcutaneously once Active sulfaSALAzine EC (Azulfidine Entab) 500 MG tablet Take 2 (two) tablets by mouth 2 times daily 3 Active B-D 3CC LUER-ANAND SYR 14TC6-7/2 21G X 1-1/2 3 ML MISC as directed 2 Active traMADol (Ultram) 50 MG tablet TAKE 1-2 TABLETS WITH OTC TYLENOL BY MOUTH THREE TIMES DAILY FOR PAIN CONTROL 3 Active Active Problems Problem Noted Date Diagnosed Date Arthralgia of both lower legs 05/04/2023 Family History Medical History Relation Name Comments Cancer - Pancreatic Brother CAD (Coronary Artery Disease) Father CAD (Coronary Artery Disease) Mother Diabetes - Type 2 Mother Relation Name Status Comments Brother Father Mother Social History Tobacco Use Types Packs/Day Years Used Date Smoking Tobacco: Never Smokeless Tobacco: Never Tobacco Cessation:Counseling Given: Not Answered Alcohol Use Standard Drinks/Week Comments Never 0 (1 standard drink = 0.6 oz pur e alcohol) Sex and Gender Information Value Date Recorded Sex Assigned at Not on file Legal Sex Male 7:29 PM ECONOMIC ADVISER Gender Identity Not on file Sexual Orientation Not on file Last Filed Vital Signs Vital Sign Reading Time Taken Comments Blood Pressure - - Pulse - - Temperature - - Respiratory Rate - - Oxygen Saturation - - Inhaled Oxygen Concentration - - Weight 179.2 kg (395 lb) 06/08/2023 10:29 AM ECONOMIC ADVISER Height 189 cm (6' 2.4) 06/08/2023 10:29 AM ECONOMIC ADVISER Body Mass Index 50.17 06/08/2023 10:29 AM ECONOMIC ADVISER Plan of Treatment Health Maintenance Due Date Last Done Comments COLON MONITORING 1972 COLONOSCOPY - COLON CA SCREENING 1972 CT COLONOGRAPHY - COLON CA SCREENING 1972 FIT - COLON CA SCREENING 1972 FLEX SIG - COLON CA SCREENING 1972 HIV SCREENING 01/20/1987 HEPATITIS C SCREENING 01/16/1990 DTAP/TDAP/TD VACCINES (1 - Tdap) 01/20/1991 HEPATITIS B VACCINE (1 of 3 - 19+ 3-dose series) 01/20/1991 PNEUMOCOCCAL VACCINE 50+ (1 of 1 - PCV) 01/20/2022 ZOSTER VACCINE (1 of 2) 01/20/2022 COVID-19 VACCINE (1 - season) 2024 DEPRESSION SCREENING 07/19/2024 INFLUENZA VACCINE (#1) 2025 3, 06/24/2021, 04/22/2020 COLOGUARD (AGES 45-75) - COLON CA SCREENING 08/25/2025 08/25/2022 Colorectal Cancer Screening 08/25/2025 SCREENING FOR DIABETES 05/19/2026 3, 04/22/2023, 04/22/2023, Additional history exists HIB VACCINE Aged Out No longer eligi ble based on patient's age to complete this topic HPV VACCINE Aged Out No longer eligi ble based on patient's age to complete this topic MENINGOCOCCAL (Group B) VACCINE SHARED DECISION-MAKING Aged Out No longer eligible based on patient's age to complete this topic MENINGOCOCCAL GROUPS A/C/Y/W VACCINE Aged Out No longer eligible based on patient's age to complete this topic Insurance [facility] Address: [facility] [id number] [place] [phone] Care Teams Golf Course Keeper Relationship Specialty Start Date End Date Jenni Tamayo APRN-NAYAN [address] [facility] [address] [place] [phone] PCP - General Nurse Practitioner Family 05/04/23
--- OUTSIDE RECORDS SUMMARY | 2025-02-01 13:30 | XMS_ITS | Patient Health Record ---
Author Organization [facility] Address [address] [place] [address] Care Team Providers Care Photo Specialist Name Role Phone Sherman Leon Unavailable [phone] Allergies No Known Allergies Results Component Value Reference Range Notes UDT Reviewed date:10/24/2024 04:47:19 PM Interpretation: Performing Lab: Notes/Report: THC NEG 0 - 50 ng/ml Cocaine NEG 0 - 300 ng/ml Amphetamine NEG 0 - 1000 ng/ml Buprenorphine (BUP) NEG 0 - 10 ng/ml Secobarbital (Bar) NEG 0 - 300 ng/ml Oxazepam (BZO) NEG 0 - 300 ng/ml 0-ceioaqiucu-6,9-vwwxhjda-1,3-diphenylpyrrolidine (JAYLYN P) NEG 0 - 300 ng/ml Methamphetamine (MET) NEG 0 - 1000 ng/ml Methylenedioxymethamphetamine (MDMA) NEG 0 - 500 ng/ml Morphine (MOP 300/[id number]) NEG 0 - 300 ng/ml Methadone (MTD) NEG 0 - 300 ng/ml Phencyclidine (PCP) NEG 0 - 25 ng/ml Nortriptyline (TCA) NEG 0 - 1000 ng/ml Oxycodone NEG 0 - 300 ng/ml x NEG 0 - 300 ng/ml Reason For Referral No Information Medications Medication SIG (Take, Route, Frequency, Duration) Notes Start Date End Date Status Atomoxetine HCl 80 MG 1 capsule Orally O nce a day; Duration: 90 days Active DULoxetine HCl 60 MG 1 capsule Oral Once a day; Duration: 90 days Active azaTHIOprine 50 MG TAKE 2 TABLETS BY [facility] EVERY DAY Oral; Duration: 90 Days Active traMADol HCl 50 MG PLEASE SEE ATTACHED FOR DETAILED DIRECTIONS Oral; Duration: 30 Days Active Gabapentin 300 MG TAKE 1 TABLET BY OMAR TH IN MORNING, AND TAKE 2 TABLETS BY MOUTH AT BEDTIME Oral; Duration: 30 Days Active Atorvastatin Calcium 80 MG TAKE 1 TABLET BY MOUTH EVERY DAY Oral; Duration: 90 Days Active amLODIPine Besylate 10 MG TAKE 1 TABLET BY MOUTH EVERY DAY Oral; Duration: 90 Days Active Immunizations Vaccine Route Administration Date Status Comme nts Influenza virus vaccine, quadrivalent (IIV4), split virus, 0.25 mL dosage Unknown 04/22/2020 Administered Novel [id number], preservative free Unknown 06/24/2021 Administered Social History Sex Assigned At : Social History Observation Description Sex Assigned At Male Section Notes: Occupation: [employer] Problems Problem Type SNOMED Code ICD Code Onset Dates Problem Status W/U Status Risk Notes Problem Severe recurrent major depression without psychotic features (28174710) Major depressive disorder, recurrent severe without psychotic features (F33.2) 12/02/19 24 Active confirmed Problem Generalized anxiety disorder (27288175) Generalized anxiety disorder (F41.1) 12/02/19 24 Active confirmed Problem Obstructive sleep apnea syndrome (disorder) (37298683) Obstructive sleep apnea (adult) (pediatric) (G47.33) 12/02/19 24 Active confirmed Problem Essential hypertension (32521921) Essential (primary) hypertension (I10) 12/02/19 24 Active confirmed Problem Attention deficit hyperactivity disorder (854973999) ADHD (attention deficit hyperactivity disorder), combined type (F90.2) Active confirmed Vital Signs Heart Rate 82 /min 01/11/2025 Height-cm 187.96 cm 01/11/2025 Blood pressure diastolic 85 mm Hg 01/11/2025 Weight-kg 146.33 kg 01/11/2025 Height 74.00 in 01/11/2025 Blood pressure systolic 137 mm Hg 01/11/2025 Weight 322.6 lbs 01/11/2025 BMI 41.41 kg/m2 01/11/2025 Procedures Procedure Date Ordered Date Performed Result Body Sit e ADHD Testing 10/12/2024 10/30/2024 N/A Encounters Encounter Location Date Provider Diagnosis [facility] [employer] [facility] [address] [place] [id number] 02/03/2024 Sherman Leon Generalized anxiety disorder F41.1 ; Major depressive disorder, recurrent severe without psychotic features F33.2 ; Essential (primary) hypertension I10 and Obstructive sleep apnea (adult) (pediatric) G47.33 [facility] [employer] [facility] [address] [facility] [address] [place] [address] 06/26/2024 Sherman Carolyn [facility] [facility] [address] [place] [address] 07/17/2024 Sherman Carolyn Generalized anxiety disorder F41.1 ; Major depressive disorder, recurrent severe without psychotic features F33.2 ; Essential (primary) hypertension I10 and Obstructive sleep apnea (adult) (pediatric) G47.33 [facility] [employer] [facility] [address] [facility] [address] [place] [address] 10/12/2024 Sherman Carolyn Benign essential HTN I10 ; Encounter for screening for depression Z13.31 ; Generalized anxiety disorder F41.1 ; Major depressive disorder, recurrent severe without psychotic features F33.2 ; Essential (primary) hypertension I10 ; Obstructive sleep apnea (adult) (pediatric) G47.33 and Attention deficit hyperactivity disorder (ADHD), combined type F90.2 [facility] [employer] [place] [address] [facility] [address] [place] [address] 10/23/2024 Sherman Carolyn Lack of concentratio n R41.840 [facility] [employer] [facility] [address] [facility] [address] [place] [address] 11/23/2024 Sherman Carolyn Major depressive disorder, recurrent severe without psychotic features F33.2 ; Obstructive sleep apnea (adult) (pediatric) G47.33 ; ADHD (attention deficit hyperactivity disorder), combined type F90.2 ; Encounter for screening for cardiovascular disorders Z13.6 ; Dietary counseling and surveillance Z71.3 ; Benign essential HTN I10 and Encounter for screening for depression Z13.31 [facility] [employer] [facility] [address] [place] [address] 01/11/2025 Sherman Carolyn Major depressive disorder, recurrent severe without psychotic features F33.2 ; Obstructive sleep apnea (adult) (pediatric) G47.33 ; ADHD (attention deficit hyperactivity disorder), combined type F90.2 ; Encounter for screening for cardiovascular disorders Z13.6 and Encounter for screening for depression Z13.31 Assessments Encounter Date Diagnosis (ICD Code) Assessment Notes Treatment Notes Treatment Clinical Notes Section Notes 07/17/2024 Generalized anxiety disorder (ICD-10 - F41.1) Spinal Decompression and Anatomy - Assessment: Patient has undergone spinal decompression and is experiencing pain in the thighs. Reports improvement in mobility and posture. - Plan: - Refer the patient to a surgeon for further evaluation and management of the pain in the thighs. Irritability, Mood Instability, and Work-Related Stress - Assessment: Patient reports long-standing irritability and mood instability, exacerbated by significant work-related stress due to unpredictable work hours and management issues. Uses a defense mechanism of lashing out when feeling cornered or attacked. - Plan: - Consider the addition of a mood stabilizer to the patient's medication regimen after discussing the potential benefits and side effects. - Encourage the patient to address work-related issues with management and coworkers to improve the work environment and reduce stress. - Recommend the patient to consider counseling or therapy to develop coping strategies for managing irritability and mood instability. Fatigue, Energy Levels, and Weight Management - Assessment: Patient experiences sudden drops in energy levels, contributing to irritability and mood instability. Has gained weight post-back surgery. - Plan: - Monitor the patient's response to the current medication regimen, including testosterone and duloxetine, and consider adjustments if necessary. - Encourage the patient to maintain a consistent sleep schedule and practice good sleep hygiene. - Recommend regular physical activity and a balanced diet to help improve energy levels and manage weight. Prostate Radiation Therapy - Assessment: Patient is currently undergoing radiation therapy for prostate cancer and reports a preference for morning appointments. - Plan: - Support the patient's preference for morning appointments and encourage communication with the radiation therapy team to ensure scheduling consistency. - Schedule a follow-up appointment after the completion of radiation therapy to assess the patient's overall health and well-being. Medication Management - Assessment: Patient is currently taking testosterone, duloxetine, and tramadol. - Plan: - Continue duloxetine 60 mg for 3 months with a refill. - Monitor the patient's response to tramadol and consider adjustments if necessary, based on the patient's report of potential sleep disturbances. - Regularly assess the patient's response to the current medication regimen and make adjustments as needed to optimize treatment outcomes. 10/12/2024 Benign essential HTN (ICD-10 - I10) 10/23/2024 Lack of concentration (ICD-10 - R41.840) 11/23/2024 Major depressive disorder, recurrent severe without psychotic features (ICD-10 - F33.2) 11/23/2024 Obstructive sleep apnea (adult) (pediatric) (ICD-10 - G47.33) 01/11/2025 Major depressive disorder, recurrent severe without psychotic features (ICD-10 - F33.2) 01/11/2025 Obstructive sleep apnea (adult) (pediatric) (ICD-10 - G47.33) Patient reports ongoing fatigue despite diagnosis. Patient can nap without waking up with sore throat or headache. Patient feels more relaxed in bed, contributing to sleepiness. - Consider switching medication dosing to bedtime if fatigue persists. 02/03/2024 Major depressive disorder, recurrent severe without psychotic features (ICD-10 - F33.2) Attention Deficit Hyperactivity Disorder (ADHD) - Suspected - Plan: - Refer the patient for ADHD testing in the next 2-3 weeks. - Schedule a follow-up appointment to discuss the results and potential treatment options. Generalized Anxiety Disorder (GABRIELLA) - Plan: - Continue ongoing therapy sessions to address anxiety and coping mechanisms. - Monitor progress and consider medication management if anxiety worsens or does not improve with therapy alone. Obsessive-Compu lsive Disorder (OCD) - Mild symptoms - Plan: - Continue addressing compulsive behaviors in therapy sessions. - Monitor the severity of symptoms and consider referral to a specialist if symptoms worsen or significantly impact daily functioning. Gastroesophagea l Reflux Disease (GERD) - Plan: - Encourage the patient to maintain a healthy diet and lifestyle to manage GERD symptoms. - Recommend ucci-tlk-ncwdnw r antacids or acid reducers as needed for symptom relief. Tobacco use (nicotine pouches) - Plan: - Discuss the risks associated with tobacco use and provide resources for smoking cessation if the patient expresses interest in quitting. History of substance use (marijuana) - Plan: - Encourage the patient to continue abstaining from daily marijuana use and monitor for any signs of relapse or increased substance use. Relationship stress - Plan: - Continue addressing relationship issues and communication strategies in therapy sessions. - Encourage open communication with the patient's partner and consider couples therapy if needed. Right knee injury (resolved) - Plan: - No further intervention needed at this time. - Encourage the patient to report any new or worsening symptoms related to the knee injury. 02/03/2024 Generalized anxiety disorder (ICD-10 - F41.1) Attention Deficit Hyperactivity Disorder (ADHD) - Suspected - Plan: - Refer the patient for ADHD testing in the next 2-3 weeks. - Schedule a follow-up appointment to discuss the results and potential treatment options. Generalized Anxiety Disorder (GABRIELLA) - Plan: - Continue ongoing therapy sessions to address anxiety and coping mechanisms. - Monitor progress and consider medication management if anxiety worsens or does not improve with therapy alone. Obsessive-Compu lsive Disorder (OCD) - Mild symptoms - Plan: - Continue addressing compulsive behaviors in therapy sessions. - Monitor the severity of symptoms and consider referral to a specialist if symptoms worsen or significantly impact daily functioning. Gastroesophagea l Reflux Disease (GERD) - Plan: - Encourage the patient to maintain a healthy diet and lifestyle to manage GERD symptoms. - Recommend ybyw-kek-ysjouf r antacids or acid reducers as needed for symptom relief. Tobacco use (nicotine pouches) - Plan: - Discuss the risks associated with tobacco use and provide resources for smoking cessation if the patient expresses interest in quitting. History of substance use (marijuana) - Plan: - Encourage the patient to continue abstaining from daily marijuana use and monitor for any signs of relapse or increased substance use. Relationship stress - Plan: - Continue addressing relationship issues and communication strategies in therapy sessions. - Encourage open communication with the patient's partner and consider couples therapy if needed. Right knee injury (resolved) - Plan: - No further intervention needed at this time. - Encourage the patient to report any new or worsening symptoms related to the knee injury. 02/03/2024 Essential (primary) hypertension (ICD-10 - I10) Attention Deficit Hyperactivity Disorder (ADHD) - Suspected - Plan: - Refer the patient for ADHD testing in the next 2-3 weeks. - Schedule a follow-up appointment to discuss the results and potential treatment options. Generalized Anxiety Disorder (GABRIELLA) - Plan: - Continue ongoing therapy sessions to address anxiety and coping mechanisms. - Monitor progress and consider medication management if anxiety worsens or does not improve with therapy alone. Obsessive-Compu lsive Disorder (OCD) - Mild symptoms - Plan: - Continue addressing compulsive behaviors in therapy sessions. - Monitor the severity of symptoms and consider referral to a specialist if symptoms worsen or significantly impact daily functioning. Gastroesophagea l Reflux Disease (GERD) - Plan: - Encourage the patient to maintain a healthy diet and lifestyle to manage GERD symptoms. - Recommend byvx-duz-ulirtu r antacids or acid reducers as needed for symptom relief. Tobacco use (nicotine pouches) - Plan: - Discuss the risks associated with tobacco use and provide resources for smoking cessation if the patient expresses interest in quitting. History of substance use (marijuana) - Plan: - Encourage the patient to continue abstaining from daily marijuana use and monitor for any signs of relapse or increased substance use. Relationship stress - Plan: - Continue addressing relationship issues and communication strategies in therapy sessions. - Encourage open communication with the patient's partner and consider couples therapy if needed. Right knee injury (resolved) - Plan: - No further intervention needed at this time. - Encourage the patient to report any new or worsening symptoms related to the knee injury. 11/23/2024 ADHD (attention deficit hyperactivity disorder), combined type (ICD-10 - F90.2) 01/11/2025 ADHD (attention deficit hyperactivity disorder), combined type (ICD-10 - F90.2) Current medication regimen has been most effective over past 20 years. Patient feels calmer and more focused with reduced racing thoughts. Medication effects last only about 8 hours, leading to fatigue later in the day. - Consider increasing medication dosage from 40 mg to 80 mg. - Monitor for potential side effects such as upset stomach or nausea. 10/12/2024 Encounter for screening for depression (ICD-10 - Z13.31) 07/17/2024 Major depressive disorder, recurrent severe without psychotic features (ICD-10 - F33.2) Spinal Decompression and Anatomy - Assessment: Patient has undergone spinal decompression and is experiencing pain in the thighs. Reports improvement in mobility and posture. - Plan: - Refer the patient to a surgeon for further evaluation and management of the pain in the thighs. Irritability, Mood Instability, and Work-Related Stress - Assessment: Patient reports long-standing irritability and mood instability, exacerbated by significant work-related stress due to unpredictable work hours and management issues. Uses a defense mechanism of lashing out when feeling cornered or attacked. - Plan: - Consider the addition of a mood stabilizer to the patient's medication regimen after discussing the potential benefits and side effects. - Encourage the patient to address work-related issues with management and coworkers to improve the work environment and reduce stress. - Recommend the patient to consider counseling or therapy to develop coping strategies for managing irritability and mood instability. Fatigue, Energy Levels, and Weight Management - Assessment: Patient experiences sudden drops in energy levels, contributing to irritability and mood instability. Has gained weight post-back surgery. - Plan: - Monitor the patient's response to the current medication regimen, including testosterone and duloxetine, and consider adjustments if necessary. - Encourage the patient to maintain a consistent sleep schedule and practice good sleep hygiene. - Recommend regular physical activity and a balanced diet to help improve energy levels and manage weight. Prostate Radiation Therapy - Assessment: Patient is currently undergoing radiation therapy for prostate cancer and reports a preference for morning appointments. - Plan: - Support the patient's preference for morning appointments and encourage communication with the radiation therapy team to ensure scheduling consistency. - Schedule a follow-up appointment after the completion of radiation therapy to assess the patient's overall health and well-being. Medication Management - Assessment: Patient is currently taking testosterone, duloxetine, and tramadol. - Plan: - Continue duloxetine 60 mg for 3 months with a refill. - Monitor the patient's response to tramadol and consider adjustments if necessary, based on the patient's report of potential sleep disturbances. - Regularly assess the patient's response to the current medication regimen and make adjustments as needed to optimize treatment outcomes. 07/17/2024 Essential (primary) hypertension (ICD-10 - I10) Spinal Decompression and Anatomy - Assessment: Patient has undergone spinal decompression and is experiencing pain in the thighs. Reports improvement in mobility and posture. - Plan: - Refer the patient to a surgeon for further evaluation and management of the pain in the thighs. Irritability, Mood Instability, and Work-Related Stress - Assessment: Patient reports long-standing irritability and mood instability, exacerbated by significant work-related stress due to unpredictable work hours and management issues. Uses a defense mechanism of lashing out when feeling cornered or attacked. - Plan: - Consider the addition of a mood stabilizer to the patient's medication regimen after discussing the potential benefits and side effects. - Encourage the patient to address work-related issues with management and coworkers to improve the work environment and reduce stress. - Recommend the patient to consider counseling or therapy to develop coping strategies for managing irritability and mood instability. Fatigue, Energy Levels, and Weight Management - Assessment: Patient experiences sudden drops in energy levels, contributing to irritability and mood instability. Has gained weight post-back surgery. - Plan: - Monitor the patient's response to the current medication regimen, including testosterone and duloxetine, and consider adjustments if necessary. - Encourage the patient to maintain a consistent sleep schedule and practice good sleep hygiene. - Recommend regular physical activity and a balanced diet to help improve energy levels and manage weight. Prostate Radiation Therapy - Assessment: Patient is currently undergoing radiation therapy for prostate cancer and reports a preference for morning appointments. - Plan: - Support the patient's preference for morning appointments and encourage communication with the radiation therapy team to ensure scheduling consistency. - Schedule a follow-up appointment after the completion of radiation therapy to assess the patient's overall health and well-being. Medication Management - Assessment: Patient is currently taking testosterone, duloxetine, and tramadol. - Plan: - Continue duloxetine 60 mg for 3 months with a refill. - Monitor the patient's response to tramadol and consider adjustments if necessary, based on the patient's report of potential sleep disturbances. - Regularly assess the patient's response to the current medication regimen and make adjustments as needed to optimize treatment outcomes. 10/12/2024 Generalized anxiety disorder (ICD-10 - F41.1) 11/23/2024 Encounter for screening for cardiovascular disorders (ICD-10 - Z13.6) 01/11/2025 Encounter for screening for cardiovascular disorders (ICD-10 - Z13.6) 02/03/2024 Obstructive sleep apnea (adult) (pediatric) (ICD-10 - G47.33) Attention Deficit Hyperactivity Disorder (ADHD) - Suspected - Plan: - Refer the patient for ADHD testing in the next 2-3 weeks. - Schedule a follow-up appointment to discuss the results and potential treatment options. Generalized Anxiety Disorder (GABRIELLA) - Plan: - Continue ongoing therapy sessions to address anxiety and coping mechanisms. - Monitor progress and consider medication management if anxiety worsens or does not improve with therapy alone. Obsessive-Compu lsive Disorder (OCD) - Mild symptoms - Plan: - Continue addressing compulsive behaviors in therapy sessions. - Monitor the severity of symptoms and consider referral to a specialist if symptoms worsen or significantly impact daily functioning. Gastroesophagea l Reflux Disease (GERD) - Plan: - Encourage the patient to maintain a healthy diet and lifestyle to manage GERD symptoms. - Recommend ttsk-fhr-iikzxz r antacids or acid reducers as needed for symptom relief. Tobacco use (nicotine pouches) - Plan: - Discuss the risks associated with tobacco use and provide resources for smoking cessation if the patient expresses interest in quitting. History of substance use (marijuana) - Plan: - Encourage the patient to continue abstaining from daily marijuana use and monitor for any signs of relapse or increased substance use. Relationship stress - Plan: - Continue addressing relationship issues and communication strategies in therapy sessions. - Encourage open communication with the patient's partner and consider couples therapy if needed. Right knee injury (resolved) - Plan: - No further intervention needed at this time. - Encourage the patient to report any new or worsening symptoms related to the knee injury. 01/11/2025 Encounter for screening for depression (ICD-10 - Z13.31) 11/23/2024 Dietary counseling and surveillance (ICD-10 - Z71.3) 10/12/2024 Major depressive disorder, recurrent severe without psychotic features (ICD-10 - F33.2) 07/17/2024 Obstructive sleep apnea (adult) (pediatric) (ICD-10 - G47.33) Spinal Decompression and Anatomy - Assessment: Patient has undergone spinal decompression and is experiencing pain in the thighs. Reports improvement in mobility and posture. - Plan: - Refer the patient to a surgeon for further evaluation and management of the pain in the thighs. Irritability, Mood Instability, and Work-Related Stress - Assessment: Patient reports long-standing irritability and mood instability, exacerbated by significant work-related stress due to unpredictable work hours and management issues. Uses a defense mechanism of lashing out when feeling cornered or attacked. - Plan: - Consider the addition of a mood stabilizer to the patient's medication regimen after discussing the potential benefits and side effects. - Encourage the patient to address work-related issues with management and coworkers to improve the work environment and reduce stress. - Recommend the patient to consider counseling or therapy to develop coping strategies for managing irritability and mood instability. Fatigue, Energy Levels, and Weight Management - Assessment: Patient experiences sudden drops in energy levels, contributing to irritability and mood instability. Has gained weight post-back surgery. - Plan: - Monitor the patient's response to the current medication regimen, including testosterone and duloxetine, and consider adjustments if necessary. - Encourage the patient to maintain a consistent sleep schedule and practice good sleep hygiene. - Recommend regular physical activity and a balanced diet to help improve energy levels and manage weight. Prostate Radiation Therapy - Assessment: Patient is currently undergoing radiation therapy for prostate cancer and reports a preference for morning appointments. - Plan: - Support the patient's preference for morning appointments and encourage communication with the radiation therapy team to ensure scheduling consistency. - Schedule a follow-up appointment after the completion of radiation therapy to assess the patient's overall health and well-being. Medication Management - Assessment: Patient is currently taking testosterone, duloxetine, and tramadol. - Plan: - Continue duloxetine 60 mg for 3 months with a refill. - Monitor the patient's response to tramadol and consider adjustments if necessary, based on the patient's report of potential sleep disturbances. - Regularly assess the patient's response to the current medication regimen and make adjustments as needed to optimize treatment outcomes. 10/12/2024 Essential (primary) hypertension (ICD-10 - I10) 11/23/2024 Benign essential HTN (ICD-10 - I10) 11/23/2024 Encounter for screening for depression (ICD-10 - Z13.31) 10/12/2024 Obstructive sleep apnea (adult) (pediatric) (ICD-10 - G47.33) 10/12/2024 Attention deficit hyperactivity disorder (ADHD), combined type (ICD-10 - F90.2) 10/12/2024 Other Problem-Based Assessment and Plan Robbie Green, a patient with a history of depression, anxiety, COPD, and sleep apnea, presents with mood swings, lack of energy, distractibility, and suspected ADHD symptoms. Mood Instability and Irritability Assessment: Patient reports experiencing significant mood swings, describing it as riding a roller coaster of energy and emotions. He notes fluctuations between happiness and anger, with aggravation and lack of patience tied to energy levels. Sleep patterns do not consistently affect patience. Improvements in mood and irritability have been minimal and short-lived. The patient has experienced three meltdowns at work, one of which was unexpected and occurred when he was tired. These symptoms are impacting his relationships and daily functioning. Plan: - Continue duloxetine at current dose (specific dose not mentioned) - Monitor effectiveness of duloxetine on mood stability - Follow up within 6 weeks from today's date Suspected Attention Deficit Hyperactivity Disorder (ADHD) Assessment: Patient reports symptoms consistent with ADHD, including distractibility, misplacing items, difficulty maintaining conversations due to distractions, and forgetting tasks. He struggles with maintaining plans due to sudden energy drops and experiences difficulty initiating activities despite having ideas. The patient also notes issues with time perception and memory inconsistencies. These symptoms are causing significant functional impairment in both personal and professional settings. Combined ADHD or predominantly inattentive type is suspected. Plan: - Schedule ADHD testing within the next 4 weeks - Follow up within 6 weeks from today's date to discuss test results and potential treatment options Fatigue and Lack of Stamina Assessment: Patient reports significant fatigue and lack of stamina, often leading to excessive sleep and disinterest in activities. This fatigue is impacting his daily functioning and may be contributing to his mood instability and irritability. The etiology of fatigue is unclear but may be related to his history of sleep apnea, recent radiation therapy, or possible ADHD. Plan: - Consider sleep study to reassess sleep apnea status post-surgery and weight loss - Evaluate for other potential causes of fatigue at follow-up appointment Chronic Obstructive Pulmonary Disease (COPD) and Sleep Apnea Assessment: Patient has a history of COPD and sleep apnea. He reports significant weight loss, which may necessitate adjustments to his current management plan for both conditions. No recent sleep study has been conducted post-surgery and weight loss. Plan: - Consider referral for pulmonology follow-up to reassess COPD management - Schedule sleep study to reevaluate sleep apnea status and treatment needs Disclaimer: This note has been transcribed using speech recognition software and serves as a reflection of the patient's visit. While efforts have been made to ensure accuracy, there may be errors, including ux developer inaccuracies and misspellings of medication names. This document should not be considered a verbatim record, and any discrepancies should be verified with the provider. 11/23/2024 Other Attention Deficit Hyperactivity Disorder (ADHD) - Inattentive Type - Assessment: Patient reports symptoms consistent with ADHD, including impatience, difficulty sustaining attention, and tendency to half-ass tasks towards completion. He describes being meticulous for the first 3/4 of a task but struggling to maintain focus towards the end. Patient also reports difficulty detecting errors in his own writing, suggesting issues with attention to detail. These symptoms appear to be longstanding and impact various aspects of his life, including work and personal projects. The patient was unable to complete a sustained attention test during the session, further supporting the possibility of ADHD. Given the patient's symptoms and their impact on his daily functioning, a trial of ADHD medication is warranted. - Plan: - Start atomoxetine (non-stimulant ADHD medication): - 25 mg daily for one week, then increase to 40 mg daily - Patient may take in the morning or evening - Prescribed for 90 days - Continue current duloxetine prescription (no changes at this time) - Follow-up appointment in 6 weeks (December/January) to assess medication efficacy - Consider repeating attention test at next appointment to evaluate improvement - Reassess need for duloxetine at follow-up appointment, with potential dose reduction if atomoxetine is effective Plan Of Treatment Next Appt Details Provider Name:Sherman Leon , 04/12/2025 03:30:00 PM, [id number], [facility] [address], [place], [address], Insurance Providers Payer Name Payer Address Payer Phone Subscriber Number Group Number Insured Name Patient Relationship to Insured Coverage Start Date Coverage End Date [facility] [address] [place] [address] [id number] ROBBIE FRANCE Self - patient is the insured 4 [facility] [address] [address] [place] [address] [id number] ROBBIE FRANCE Self - patient is the insured 5 Medical (General) History Medical History History ICD Code Problems: Abnormal testosterone Allergic rhinitis Backache Benign essential hypertension Coronary arteriosclerosis Essential hypertension Gastroesophageal reflux disease Generalized anxiety disorder History of placement of stent for payne ry artery disease Hyperglycemia Hyperinsulinism Hyperlipidemia Morbid obesity Obesity Obstructive sleep apnea syndrome Osteoarthritis of knee Plantar fasciitis Prediabetes Primary insomnia Psoriatic arthritis Severe recurrent major depression withou t psychotic features Sleep apnea , Surgical History Surgery Date(Month/Year) Cardiac stent 09/17/2015 Any surgical history 04/21/2023
--- OUTSIDE RECORDS SUMMARY | 2025-02-01 13:31 | XMS_ITS | Data Portability ---
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 Role Phone JENNI TAMAYO Primary Care Provider JENNI TAMAYO Referring Provider [phone] Assessment Encounter Date Assessment Date Assessment LastModified by Organization Details LastModified Time 11/11/2022 11/11/2022 Cscope- 09/2022- Delgado- repeat - 09/2032 PSA- managed by urology Call office if worse, ER if life-threatening illness RTC in 4 months He voices understanding of plan and agrees [email or web address] Not available 11/11/2022 16:32:43 03/17/2023 03/17/2023 Cscope- 09/2022- Delgado- repeat 09/2032 PSA- managed by urology Call office if worse, ER if life-threatening illness RTC in 4 months He voices understanding of plan and agrees [email or web address] Not available 03/17/2023 16:09:06 05/05/2023 05/05/2023 Cscope- 09/2022- Delgado- repeat 09/2032 PSA- managed by urology Call office if worse, ER if life-threatening illness RTC in 4 months He voices understanding of plan and agrees [email or web address] Not available 05/05/2023 10:58:31 05/06/2023 05/06/2023 Impression: Patient has severe osteoarthritis in his left knee. He has severe osteoarthritis in his right knee as well but is more symptomatic and radiographically a little bit more severe on the left. I have discussed options with him. The next step would be a cortisone shot and he wished to try the. I discussed risk of side effects including risk of infection with him in detail. After ChloraPrep prep, 20 mg of Kenalog and 4 cc of 0.5% ropivacaine were injected from a lateral parapatellar approach which seemed to be successful respect to intra-articular placement knee tolerated this well. After the injection he told me that the last injection he had hurt more I asked him when that was and he advised me that it was just a little over a month ago with Dr. Wright. I advised him that in the future he must space his injections out by minimum of 3 months. I think getting cortisone shots every 3 months to be appropriate. 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 Takes methotrexate. He showed me his left arm which has dozens of small cutaneous sores in various degrees of healing. He states that his psoriasis is causing is a problem with itching in his left arm and he itches his arm and bili night. He does not have any of these sores on the right arm. 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 Sometimes anxiety medication necessary to control the urge to scratch. And reviewed his medications I also note that he takes diclofenac 75 mg twice daily. I explained to him that with a history of a gastric sleeve, he is at risk for bleeding ulcers from the diclofenac and I would recommend that he call his weight loss surgeon today and ask whether he has approval to take the diclofenac from the weight loss surgery I would recommend that put the diclofenac on hold until this is determined. He does take tramadol. If he is advised to not take nonsteroidal anti-inflammatory medications which I suspect will be the case, periodic cortisone injections every 3 months may be the best option for him. I will be happy to see him back as needed. 30 minutes were spent total care this patient more than half time spent [id number] care. [email or web address] Not available 05/06/2023 10:33:24 07/26/2023 07/26/2023 Cscope- 09/2022- Delgado- repeat 10 years- 09/2032 PSA- managed by urology Call office if worse, ER if life-threatening illness he plans transfer to [facility] [place] He voices understanding of plan and agrees [email or web address] Not available 07/26/2023 17:03:05 Plan of Treatment Reminders Order Date Submit Date Provider Last Modified By Organization Details Last Modified Time Details Appointments None recorded. Lab PSA, total + free, serum or plasma 2022 023 [facility] (Lab), [address] [place] [address] [address], [place], [address], 3 05:32:12 CMP, serum or plasma 2022 023 [facility] (Lab), [address] [place] [address] [address], [place], [address], 3 13:41:38 CBC w/ auto diff [address] (Lab), [address] [place] [address] [address], [place], [address], 4 15:11:35 HbA1c (hemoglobin A1c), blood 2022 023 [facility] (Lab), [address] [place] [address] [address], [place], [address], 3 17:45:05 microalbumi n/creatinin e, mass ratio, urine [address] (Lab), [address] [place] [address] [address], [place], [address], 4 15:11:35 lipid panel, serum 2022 023 [facility] (Lab), [address] [place] [address] [address], [place], [address], 3 13:43:16 TSH, serum, reflex free T4 2022 023 [facility] (Lab), [address] [place] [address] [address], [place], [address], 3 13:44:44 Referral pain management referral 2022 023 [email or web address] Grayson MD, [address], [place], [address], 4 16:35:10 Procedures injection/a spiration joint/bursa (PROC) - in office procedure, administere d by provider 2022 023 [email or web address] In-Office Order, Internal Use Only DO Not Attach Compendium DO Not Attach Compendium, Do Not Delete/merge, [id number] 3 10:18:09 Surgeries None recorded. Imaging XR, knee 2022 023 [email or web address], [address], [place], [address], 3 15:23:43 US, duplex, venous, extremity, complete - w/ standing reflux study please- bilateral LE 2022 023 [facility], [address], [address], [place], [address], 3 15:53:40 US, duplex, arterial, lower extremity, complete - bilateral LE 2022 023 [email or web address] [facility], [address], [address], [place], [address], 4 11:17:25 Medication Orders metformin ER 500 mg tablet,exte nded release 24 hr 2023 024 [facility] [id number] [facility], [address] [place], [address], 4 16:29:04 losartan 100 mg tablet 2023 024 [facility] [address] [facility], [address] [place], [address], 4 16:29:05 Kenalog 10 mg/mL suspension for injection 2022 023 [email or web address] [facility] [address] [facility], [facility] [place], [address], 3 15:23:43 ropivacaine (PF) 5 mg/mL (0.5 %) injection solution 2022 023 [email or web address] [facility] [address] [facility], [address] [place] [address], [address], 3 15:23:43 losartan 100 mg tablet 2022 023 [facility] [address] [facility], [address] [place] [address], [address], 3 10:59:54 metformin ER 500 mg tablet,exte nded release [address] [facility] [address] [facility], [address] [place] [address], [address], 3 16:29:09 Patient TargetsNo targets recorded. Patient InstructionsNo instructions recorded. Reason for Referral Pain Management Referral for Lumbar radiculopathy Referring Physician: Jenni Tamayo, Internal Medicine, Encounter Date: 05/05/2023 Results Created Date Observation Date Name Description Value Unit Range Abnormal Flag Note LastModifiedBy Organization Detail LastModifiedTime 03/27/2003/26/2023 US, shonda x, beverly s, extre mity, compl ete No observ ation record ed. [email or web address] [facility] [address], [place], [address], 03/30/2023 15:43:37 05/06/20 23 XR, knee No observ ation record ed. [email or web address] [facility] [address], [place], [address], 05/06/2023 10:28:27 Result Notes None recorded. Problems Name Problem SNOMED Code Status Onset Date Resolution Date Notes Provider Name and Address Organization Details Recorded Time Benign essential hypertens ion 1776445 Active Not Available [facility] 3 14:49:00 Backache 342508206 Active Not Available [facility] 3 14:49:01 Plantar fasciitis 637194613 Active Not Available [facility] 3 14:49:01 Gastroeso phageal reflux disease 244401502 Active Not Available [facility] 3 14:49:01 Chest pain 26967130 Completed Not Available [facility] 3 14:49:01 Sinusitis 52080752 Completed Not Available [facility] 3 14:49:01 Obesity 508237240 Active Not Available [facility] 3 14:49:02 Pain of hip region 63805184 Completed Not Available [facility] 3 14:49:02 Coronary arteriosc lerosis 38523883 Active Not Available [facility] 3 14:49:02 Hyperlipi demia 53060711 Active Not Available [facility] 3 14:49:02 Allergic rhinitis 56136146 Active Not Available [facility] 3 14:49:02 Sleep apnea 66832383 Active Not Available [facility] 3 14:49:03 Pain in toe 200415484 Completed 201610/16/2020 Not Available [facility] 3 14:49:01 History of placement of stent for coronary artery disease 725892163 Active 2020 Not Available [facility] 3 14:49:02 Prediabet es 701712234 Active 2020 Not Available [facility] 3 14:49:03 Hyperinsu linism 88895452 Active 2020 Not Available [facility] 3 14:49:03 Hyperglyc emia 45328782 Active 2020 Not Available [facility] 3 14:49:03 Psoriatic arthritis 489082058 Active 2020 Not Available [facility] 3 14:49:00 Osteoarth ritis of knee 624871033 Active 2020 Not Available [facility] 3 14:49:01 Abnormal testoster one 211503020 Active 2020 Not Available [facility] 3 14:49:00 Granuloma tosis with polyangii tis 652908840 Active 2021 Not Available [facility] 3 14:49:01 Anterior epistaxis 105970526 Active 2021 Not Available [facility] 3 14:49:01 Testicula r hypofunct ion 436936935 Active 2021 Not Available [facility] 3 14:49:00 Primary erectile dysfuncti on 788697331 Active 2021 Not Available [facility] 3 14:49:02 Type 2 diabetes mellitus without complicat ion 153851892 Active 2022 [facility] [address], [address], [place], [address] , [employer] [facility] [employer] [facility] 3 17:25:20 Essential hypertens ion 45883722 Active 2022 FARIDA [facility] [address], [address] [place] [address], [address] , [employer] [facility] 3 17:25:32 Malignant neoplasm of prostate 913405133 Active 2022 HANDY [facility] [address], [address], [place], [address] , [employer] [facility] [employer] [facility] 3 17:26:07 Testoster one level below reference range 929702588 Active 2022 FARIDA [facility] [address], [address], [place], [address] , [employer] [facility] [employer] [facility] 3 17:26:15 Mixed anxiety and depressiv e disorder 941842540 Active 2022 Jenni Tamayo [employer] [facility] [address], [address], [place], [address] , [employer] [facility] 3 17:26:23 Abdominal bloating 361994847 Active 2022 HANDY [facility] [address], [address], [place], [address] , [facility] [employer] [facility] 3 17:26:46 Coronary atheroscl erosis 602980577 Active 2022 HANDY [facility] [address], [address], [place], [address] , [facility] [employer] [facility] [employer] [facility] 3 17:28:31 Morbid obesity 329753302 Active 2022 HANDY [facility] [address], [address], [place], [address] , [facility] [employer] [facility] [employer] [facility] 3 16:33:15 Intermitt ent claudicat ion 36439236 Active 2022 HANDY [facility] [address], [address], [place], [address] , [employer] [facility] [employer] [facility] 3 16:23:38 Edema of lower extremity 302628789 Active 2022 HANDY [facility] [address], [address], [place], [address] , [facility] [employer] [facility] [employer] [facility] 3 16:25:08 Pain of left knee joint 33809126938 4107 Active 2022 BRONSON Pena, [facility] [employer] [facility] 3 11:57:54 Lumbar radiculop athy 889044774 Active 2022 HANDY [facility] [address], [address], [place], [address] , [facility] [employer] [facility] 3 10:59:58 Problem Notes None recorded. Procedures Surgical History Date Name Laterality Status Provider Name and Address Organization Details Recorded Time Cardiac Stent Placement completed Not Available [facility] 09/16/2022 14:45:32 Imaging Results None recorded. Procedure Notes None recorded. Medical Equipment None Reported. Allergies No known drug allergies Medications Name Sig Start Date Stop Date Status Note LastModified by Organization Details LastModified Time celecoxib 200 mg capsule TAKE 1 CAPSULE BY MOUTH TWICE DAILY NEEDED FOR 30 DAYS 05/05 completed Not Available Not Available Not Available cyclobenz aprine 10 mg tablet TAKE 1 TABLET BY MOUTH THREE TIMES A DAY FOR 10 DAYS active Not Available Not Available No t Available amoxicill in 500 mg capsule Take 1 capsule 3 times a day by oral route for 7 days. 07/20 completed Not Available Not Available Not Available methocarb shea 500 mg tablet TAKE 1 TABLET BY MOUTH THREE TIMES A DAY NEEDED 07/26 completed Not Available Not Available Not Available Augmentin 875 mg-125 mg tablet Take 1 tablet every 12 hours by oral route for 7 days. 02/12 completed Not Available Not Available Not Available bupropion HCl SR 150 mg tablet,12 hr sustained -release TAKE 1 TABLET BY MOUTH EVERY DAY 05/06 completed Not Available Not Available Not Available atorvasta tin 80 mg tablet TAKE 1 TABLET BY MOUTH EVERY DAY active Not Available Not Available No t Available azithromy emily 250 mg tablet TAKE 2 TABLETS BY MOUTH TODAY, THEN TAKE 1 TABLET DAILY FOR 4 DAYS 09/25 completed Not Available Not Available Not Available benzonata te 200 mg capsule Take 1 capsule 3 times a day by oral route for 7 days. 02/12 completed Not Available Not Available Not Available metoprolo l succinate ER 50 mg tablet,ex tended release 24 hr TAKE 1 TABLET BY MOUTH EVERY DAY active Not Available Not Available No t Available prednison e 5 mg tablet TAKE 2 TABLETS BY MOUTH DAILY FOR 7 DAYS FOR FLARE [employer] active Not Available Not Available No t Available sulfasala zine 500 mg tablet,de layed release TAKE 2 TABLETS BY MOUTH TWICE A DAY 07/26 completed Not Available Not Available Not Available leflunomi de 10 mg tablet TAKE 1 TABLET BY MOUTH EVERY DAY 05/05 completed Not Available Not Available Not Available phentermi ne 37.5 mg tablet Take 1 po daily active Not Available Not Available No t Available amlodipin e 5 mg tablet TAKE 1 TABLET BY MOUTH EVERY DAY active Not Available Not Available No t Available hydrocodo ne 10 mg-acetam inophen 325 mg tablet Take 1 tablet twice a day by oral route as needed. active Not Available Not Available No t Available omeprazol e 40 mg capsule,d elayed release TAKE 1 CAPSULE BY MOUTH EVERY DAY active Not Available Not Available No t Available aspirin 81 mg tablet,de layed release Take 1 tablet every day by oral route. 2016 active Not Available Not Available Not Avai lable tramadol 50 mg tablet TAKE 1-2 TABLETS BY MOUTH WITH OTC TYLENOL 3 TIMES A DAY FOR PAIN CONTROL active Not Available Not Available No t Available meloxicam 7.5 mg tablet TAKE 1 TABLET BY MOUTH EVERY DAY 01/05 completed Not Available Not Available Not Available losartan 100 mg-hydroc hlorothia zide 25 mg tablet TAKE 1 TABLET BY MOUTH EVERY DAY 05/05 completed Not Available Not Available Not Available BD Regular Bevel [place] 18 gauge x 1 USE DIRECTED . 05/06 completed Not Available Not Available Not Available Deep Sea Nasal 0.65 % spray aerosol USE DIRECTED 02/23 completed Not Available Not Available Not Available methotrex ate sodium 2.5 mg tablet TAKE 5 TABLETS IN IN THE MORNING AND 5 TABLETS IN IN THE EVENING BY MOUTH ONCE WEEKLY 07/26 completed Not Available Not Available Not Available trazodone 100 mg tablet TAKE 0.5 1 TABLET BY MOUTH AT BED TIME NEEDED FOR INSOMNIA 04/28 completed Not Available Not Available Not Available Kenalog 10 mg/mL suspensio n for injection in office procedur e, administ ered by provider 2022 active [facility]: [id number] 4-20 Not Available Not Available Not Available hydrocodo ne 7.5 mg-acetam inophen 325 mg tablet TAKE 1 TABLET BY MOUTH EVERY 6 HOURS active Not Available Not Available No t Available pantopraz ole 40 mg tablet,de layed release TAKE 1 TABLET BY MOUTH EVERY DAY active Not Available Not Available No t Available simvastat in 20 mg tablet take 1 tab daily active Not Available Not Available No t Available metoprolo l tartrate 50 mg tablet Take 1 tablet twice a day by oral route. 07/21 completed Not Available Not Available Not Available indometha emily 50 mg capsule Take 1 capsule 3 times a day by oral route. 09/16 completed interact ion w/Plavix Not Available Not Available Not Available diclofena c sodium 75 mg tablet,de layed release TAKE 1 TABLET BY MOUTH TWICE A DAY active Not Available Not Available No t Available folic acid 1 mg tablet TAKE 1 TABLET BY MOUTH EVERY DAY active Not Available Not Available No t Available allopurin ol 300 mg tablet TAKE ONE TABLET BY MOUTH ONCE DAILY 02/19 completed Not Available Not Available Not Available clobetaso l 0.05 % topical ointment RUB IN WELL TWICE DAILY NEEDED TO RED AREAS ON BODY UNTIL CLEAR DIRECTED 04/28 completed Not Available Not Available Not Available testoster one cypionate 200 mg/mL intramusc ular oil INJECT 1 ML INTRAMUS CULARLY EVERY 2 WEEKS 08/14 completed Not Available Not Available Not Available levofloxa emily 500 mg tablet TAKE 1 TABLET BY MOUTH EVERY DAY FOR 3 DAYS 08/14 completed Not Available Not Available Not Available methylpre dnisolone 4 mg tablets in a dose pack TAKE 6 TABLETS ON DAY 1 DIRECTED ON PACKAGE AND DECREASE BY 1 TAB EACH DAY FOR A TOTAL OF 6 DAYS 09/01 completed Not Available Not Available Not Available losartan 50 mg-hydroc hlorothia zide 12.5 mg tablet Take 1 tablet(s ) every day by oral route. 10/16 completed Not Available Not Available Not Available Naprosyn 500 mg tablet Take 1 tablet twice a day by oral route for 10 days. active Not Available Not Available No t Available BD Luer-Carol Syringe 3 mL 21 gauge x 1 1/2 USE DIRECTED . 05/06 completed Not Available Not Available Not Available losartan 100 mg tablet TAKE 1 TABLET BY MOUTH EVERY DAY active Not Available Not Available No t Available fluticaso ne propionat e 50 mcg/actua tion nasal spray,jeferson pension active Not Available Not Available Not Available metformin ER 500 mg tablet,ex tended release 24 hr TAKE 1 TABLET BY MOUTH EVERY DAY 2023 active Not Available Not Available Not Avai lable ezetimibe 10 mg tablet TAKE 1 TABLET BY MOUTH EVERY DAY active Not Available Not Available No t Available Cialis 20 mg tablet TAKE ONE TABLET BY MOUTH DAILY NEEDED 02/10 completed Not Available Not Available Not Available duloxetin e 30 mg capsule,d elayed release TAKE 1 CAPSULE BY MOUTH EVERY DAY AT BEDTIME FOR 90 DAYS active Not Available Not Available No t Available duloxetin e 60 mg capsule,d elayed release TAKE 1 CAPSULE BY MOUTH EVERY DAY IN THE MORNING FOR 90 DAYS 07/26 completed Not Available Not Available Not Available Lipitor 07/20 completed Not Available Not Available Not Available bupropion HCl 06/03 completed does not know MG- prescrib ed by Carolyn Not Available Not Available Not Available Cymbalta 06/03 completed Does not know MG. prescrib ed by CAROLYN Not Available Not Available Not Available metformin ER 500 mg 24 hr tablet,ex tended release (gastric retention ) Take 1 tablet every day by oral route for 90 days. active Not Available Not Available No t Available Brilinta 90 mg tablet Take 1 tablet twice a day by oral route. 09/16 completed Not Available Not Available Not Available ropivacai ne (PF) 5 mg/mL (0.5 %) injection solution in office procedur e, administ ered by provider 2022 active [facility] [id number] 4- Not Available Not Available Not Available Simponi ARIA 12.5 mg/mL intraveno us solution Inject every 2 months by intraven ous route. 08/14 completed Not Available Not Available Not Available Jardiance 25 mg tablet Take 1 tablet every day by oral route for 90 days. 05/05 completed Not Available Not Available Not Available Cosentyx Pen 300 mg/2 pens (150 mg/mL) subcutane ous pen injector 07/26 completed Not Available Not Available Not Available Saxenda 3 mg/0.5 mL (18 mg/3 mL) subcutane ous pen injector as directed 08/14 completed Not Available Not Available Not Available Ozempic 0.25 mg or 0.5 mg (2 mg/1.5 mL) subcutane ous pen injector Inject 0.25mg subcutan eous weekly x 4 weeks, then increase to 0.5mg weekly 12/12 completed Not Available Not Available Not Available Ozempic 02/26 completed Not Available Not Available Not Available Xyosted 75 mg/0.5 mL subcutane ous auto-inje ctor Inject 75 mg every week by subcutan eous route for 42 days. 01/05 completed Not Available Not Available Not Available Mounjaro 2.5 mg/0.5 mL subcutane ous pen injector INJECT 2.5 MG EVERY WEEK BY SUBCUTAN EOUS ROUTE. active Not Available Not Available No t Available Vitals Date Recorded Body height Body mass index (BMI) Body weight Body temperature Heart rate Oxygen saturation Oxygen saturation in Arterial blood by Pulse oximetry Systolic And Diastolic Provider Name and Address Organization Details Last Updated DateTime 4 180.34 cm 51.7 kg/m2 670121. 33 g 97.8 [degF] 88 /min 97 % 97 % 126/82 mm[Hg] Deedee Hernandez [facility] [employer] [facility] 4 16:07:52 Date Recorded Body height Body temperature Heart rate Oxygen saturation Oxygen saturation in Arterial blood by Pulse oximetry Systolic And Diastolic Provider Name and Address Organization Details Last Updated DateTime 3 187.96 cm 97.4 [degF] 84 /min 96 % 96 % 158/90 mm[Hg] Deedee Hernandez [facility] [employer] [facility] 3 16:05:34 Date Recorded Body height Body mass index (BMI) Body weight Body temperature Heart rate Oxygen saturation Oxygen saturation in Arterial blood by Pulse oximetry Systolic And Diastolic Provider Name and Address Organization Details Last Updated DateTime 3 187.96 cm 62.3 kg/m2 993508. 3 g 97.6 [degF] 78 /min 96 % 96 % 154/92 mm[Hg] Deedee Hernandez [facility] [employer] [facility] 3 15:54:32 Date Recorded Body height Body mass index (BMI) Body weight Body temperature Heart rate Oxygen saturation Oxygen saturation in Arterial blood by Pulse oximetry Systolic And Diastolic Provider Name and Address Organization Details Last Updated DateTime 3 187.96 cm 56.1 kg/m2 281659. 87 g 98.5 [degF] 86 /min 97 % 97 % 138/80 mm[Hg] Deedee Hernandez [facility] [employer] [facility] 3 10:23:32 Date Recorded Body height Body mass index (BMI) Body weight Provider Name and Address Organization Details Last Updated DateTime 05/06/2023 180.34 cm 61.8 kg/m2 170252.42 g ALEX Garcia [facility] 05/06/2023 09:45:05 Social History Question Answer Notes LastModified by Organizat ion Details LastModified Time Tobacco Smoking Status Never Smoker Not Available [facility] 09/16/2022 14:45:15 What Is Your Level Of Caffeine Consumption? Occasional [id number] Information not available 09/16/2022 How Much Tobacco Do You Chew? None [id number] Information not available 09/16/2022 In The 14 Days Before Symptom Onset, Have You Had Close Contact With A Laboratory-confir med COVID-19 While That Case Was Ill? No MIGRATION.09756 85971 Information not available 09/16/2022 In The 14 Days Before Symptom Onset, Have You Had Close Contact With A Person Who Is Under Investigation For COVID-19 While That Person Was Ill? No MIGRATION.59250 73572 Information not available 09/16/2022 What Type Of Diet Are You Following? REGULAR MIGRATION.95822 60778 Information not available 09/16/2022 Which Illicit Or Recreational Drugs Have You Used? None MIGRATION.36024 48047 Information not available 09/16/2022 What Is The Highest Grade Or Level Of School You Have Completed Or The Highest Degree You Have Received? SG81447-9 MIGRATION.19279 56228 Information not available 09/16/2022 Have There Been Any Changes To Your Family Or Social Situation? No MIGRATION.91852 56288 Information not available 09/16/2022 What Is The Fluoride Status Of Your Home? Unknown MIGRATION.40457 76872 Information not available 09/16/2022 Do You Use Insect Repellent Routinely? No MIGRATION.06735 22384 Information not available 09/16/2022 Where Do You Live? [place]House MIGRATION.60358 63923 Information not available 09/16/2022 What Was The Date Of Your Most Recent Tobacco Screening? 07/26/2023 Information not available 07/26/2023 Have You Ever Been Counseled For Unhealthy Alcohol Use? No MIGRATION.47709 73794 Information not available 09/16/2022 Do You Have Any Pets? Yes MIGRATION.99700 73979 Information not available 09/16/2022 What Is Your Relationship Status? Single MIGRATION.33055 61566 Information not available 09/16/2022 Do You Have Smoke And Carbon Monoxide Detectors In Your Home? Yes MIGRATION.33047 67883 Information not available 09/16/2022 Are You Passively Exposed To Smoke? No MIGRATION.50935 85343 Information not available 09/16/2022 Are There Any Smokers In Your House? No MIGRATION.63138 94625 Information not available 09/16/2022 Do You Use Sunscreen Routinely? No MIGRATION.36526 36671 Information not available 09/16/2022 Has Tobacco Cessation Counseling Been Provided? No MIGRATION.81674 33204 Information not available 09/16/2022 Have You Recently Traveled Abroad? No MIGRATION.48562 09343 Information not available 09/16/2022 Do You Have Any Dietary Restrictions? No MIGRATION.58301 42606 Information not available 09/16/2022 Sex: Unknown Functional Status Question Answer Note LastModified by Organizat ion Details LastModified Time Do you use any illicit or recreational drugs? No MIGRATION.014419 7099 Information not available 09/16/2022 Do you or have you ever used any other forms of tobacco or nicotine? No Information not available 11/11/2022 What is your level of alcohol consumption? Occasional MIGRATION.454407 1401 Information not available 09/16/2022 Do you or have you ever used smokeless tobacco? 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 Never used electronic cigarettes MIGRATION.332235 0595 Information not available 09/16/2022 What is your exercise level? None MIGRATION.699062 6379 Information not available 09/16/2022 Mental Status Question Answer Note LastModified by Organizat ion Details LastModified Time Do you feel stressed (tense, restless, nervous, or anxious, or unable to sleep at night)? [id number] MIGRATION.[id number] 6 Information not available 09/16/2022 Family History Relationship Description Onset Age of this Age Resolved Age Notes LastModified by Organization Details LastModified Time Unspecified Relation Heart disease MIGRATION.524 [id number] Not available 09/16/2022 14:45:32 Unspecified Relation Diabetes mellitus MIGRATION.558 [id number] Not available 09/16/2022 14:45:32 Brother Malignant tumor of pancreas told it was DNA based MIGRATION.070 [id number] Not available 09/16/2022 14:45:33 Medical History Condition Response CANCER: SPECIFY Y ARTHRITIS Y DEPRESSION (INCLUDING POST ) Y HEART MURMUR Y HYPERTENSION Y HIGH CHOLESTEROL / HYPERLIPIDEMIA Y Immunizations Vaccine Type Date Status Note Provider Nam e and Address Organization Details Recorded Time Influenza, split virus, quadrivalent, preservative 0 completed Not Available [facility] 09/16/2022 14:52:14 Influenza, split virus, quadrivalent, PF 3 completed Not Available [facility] 09/16/2022 14:52:15 Influenza, split virus, quadrivalent, PF 1 completed Not Available [facility] 09/16/2022 14:52:15 Past Encounters Encounter ID Performer Location Encounter Start Date Encounter Closed Date Diagnosis/Indication Diagnosis SNOMED-CT Code Diagnosis ICD10 Code Diagnosis Note [id number] [facility] Marlyn richardson [facility] [place] [address] 10/16/2020 00:00:00 10/16/2020 18:57:46 [id number] [facility] Marlyn richardson [facility] [place] [address] 11/13/2020 00:00:00 11/14/2020 08:06:35 [id number] S[facility] Marlyn richardson [facility] [place] [address] 12/12/2020 00:00:00 12/12/2020 18:02:41 [id number] Gael Askew MD [facility] [place] [address] 01/23/2021 00:00:00 01/23/2021 12:20:40 [id number] Gael Askew MD [facility] [place] [address] 02/20/2021 00:00:00 02/20/2021 16:46:08 [id number] MD ARTHUR [facility] Maryln richardson [address] [place] [address] [place] [address] 03/20/2021 00:00:00 03/20/2021 16:47:36 [id number] Gael Askew MD [facility] Marlyn richardson [address] [place] [address] [place] [address] 04/24/2021 00:00:00 04/24/2021 16:37:47 [id number] Noe Mcclendon MD [facility] [address] [place] [address] 04/28/2021 00:00:00 05/02/2021 09:49:39 [id number] Gael Askew MD [facility] Marlyn richardson [address] [place] [address] [place] [address] 05/26/2021 00:00:00 05/26/2021 16:55:27 [id number] Spencer Simmons NP [facility] [address] [address] 06/16/2021 00:00:00 06/18/2021 13:54:56 [id number] Gael Askew MD [facility] Marlyn richardson [address] [place] [address] [place] [address] 06/24/2021 00:00:00 06/24/2021 16:45:22 [id number] Spencer Simmons NP [facility] [address] [address] 07/21/2021 00:00:00 08/11/2021 11:39:33 [id number] Geal Askew MD [facility] Marlyn richardson [address] [place] [address] [place] [address] 07/24/2021 00:00:00 07/24/2021 11:11:32 [id number] Spencer Simmons NP [facility] [address] [place] [address] 09/01/2021 00:00:00 09/01/2021 17:35:57 [id number] [facility] Marlyn richardson [address] [facility] [place] [address] 09/25/2021 00:00:00 09/25/2021 16:33:44 [id number] Spencer Simmons NP [facility] [address] [place] [address] 10/13/2021 00:00:00 10/13/2021 17:16:57 [id number] Gael Askew MD [facility] Marlyn richardson [address] [place] [address] 11/20/2021 00:00:00 11/20/2021 15:40:10 [id number] Mello Copeland MD [facility] ENT [place] [address] [place] [address] 12/08/2021 00:00:00 12/08/2021 16:09:57 [id number] Spencer Simmons NP [facility] [place] [address] [place] [address] 01/05/2022 00:00:00 01/05/2022 15:55:58 [id number] Spencer Simmons NP [facility] [place] [address] [address] 01/12/2022 00:00:00 01/26/2022 08:59:18 [id number] Spencer Simmons NP [facility] [place] [address] [address] 02/23/2022 00:00:00 02/23/2022 16:14:48 [id number] [facility] Marlyn richardson [address] [place] [address] 02/26/2022 00:00:00 02/26/2022 17:58:31 [id number] Haydee jasmine MD [facility] Internal Med [facility] [[email or web address] [address] [facility], [address] [place] [address] 08/14/2022 00:00:00 08/14/2022 16:56:48 [id number] Haydee jasmine MD [facility] Internal Med Marlyn richardson [address] , [place] [address] 11/11/2022 15:56:57 11/11/2022 16:36:23 Type 2 diabetes mellitus without complication [id number] E11.9 On metformin and Jardiance- he is aware of side effects, risks, benefitsOz empic worked well but he cannot afford it with his insuranceH e knows to call if any signs or symptoms of UTI or groin infectionD iabetic eye exam recommende dDaily foot checks recommende d Hyperlipidemia 75474916 E78.5 On atorvastat in and ezetimibe Essential hypertension 30239601 I10 On losartan, HCTZ, amlodipine , metoprolol follows cardiology - Dr. Caleb Nelson at [facility] Sleep apnea 32704668 G47 .30 On CPAPGet appointmen t with pulmonolog y for compliant Psoriatic arthritis 1563 80915 L40.50 Follows rheumatolo gy-Dr. Suarez Cosentyx, methotrexa te, prednisone prn, tramadol prnhe is aware I cannot write for narcotics out of this office Malignant neoplasm of prostate 816152969 C61 follows urology- Dr. Sacnhez deferring treatment for now Testostero ne level below reference range 740640678 R89.1 follows urology as above Mixed anxi ety and depressive disorder 866003474 F41.8 Follow psychiatry -Dr. Lawrence dulshine and Wellbutrin Call office if any change in mood or behavior Coronary atherosclerosis 735603775 I25.10 Follows Cardiology at [facility]-Dr. Caleb Garcia/p stent placement Gastroesop hageal reflux disease 114234166 K21.9 on omeprazole - he is aware of side effects, risks, and benefitsLi festyle measures to decrease acid discussed Morbid obesity 557120094 E66.01 plans bariatric surgery in the Fall at [facility] has upcoming appt for cardiac clearancei s clear from PCP perspectiv e- form faxed recommend healthy, well balanced mealsfocus on lean meats, fresh vegetables , fresh fruits, whole grainsredu ce fast/proce ssed foods or eating out to no more than 1-2 times per weekaim to get 30 min of exercise most days of the week- walking is a great choicealso recommend resistance training 2-3 times per week [id number] Haydee jasmine MD [facility] Internal Med Marlyn richardson [address] [facility] y [place] [address] 03/17/2023 15:43:17 03/17/2023 16:31:31 Type 2 diabetes mellitus without complication 108863773 E11.9 On metformin and Jardiance- he is aware of side effects, risks, benefitsOz empic worked well but he cannot afford it with his insuranceH e knows to call if any signs or symptoms of UTI or groin infectionD iabetic eye exam recommende dDaily foot checks recommende d Hyperlipidemia 52726463 E78.5 On atorvastat in and ezetimibe Essential hypertension 75173033 I10 On losartan, HCTZ, amlodipine , metoprolol follows cardiology - Dr. Caleb Nelson at [facility] Sleep apnea 13443026 G47 .30 On CPAPGet appointmen t with pulmonolog y for compliance - has been referred Psoriatic arthritis 1563 27414 L40.50 Follows rheumatolo gy-Dr. Suarez Cosentyx, methotrexa te, prednisone prn, tramadol prnhe is aware I cannot write for narcotics out of this office Malignant neoplasm of prostate 117537461 C61 follows urology- Dr. Sanchez deferring treatment for now Testostero ne level below reference range 545597194 R89.1 follows urology as above Mixed anxi ety and depressive disorder 895761155 F41.8 Follow psychiatry -Dr. Lawrence duloxetine and Wellbutrin Call office if any change in mood or behavior Coronary atherosclerosis 126573387 I25.10 Follows Cardiology at [facility]-Dr. Caleb Garcia/merly stent placement Gastroesop hageal reflux disease 999964159 K21.9 on omeprazole - he is aware of side effects, risks, and benefitsLi festyle measures to decrease acid discussed Morbid obesity 607913099 E66.01 plans bariatric surgery in the Fall at [facility] has upcoming appt for cardiac clearancei s clear from PCP perspectiv e- form faxed recommend healthy, well balanced mealsfocus on lean meats, fresh vegetables , fresh fruits, whole grainsredu ce fast/proce ssed foods or eating out to no more than 1-2 times per weekaim to get 30 min of exercise most days of the week- walking is a great choicealso recommend resistance training 2-3 times per week Intermitte nt claudication 91075519 I73.9 get aterial doppler Edema of l ower extremity 850247577 R60.0 get venous dopplercom pression stockings recommened ed [id number] Haydee jasmine MD [facility] Internal [facility] Marlyn richardson [address] , [facility] [place] [address] 05/05/2023 10:13:36 05/05/2023 11:45:28 Type 2 diabetes mellitus without complication 313384855 E11.9 On metformin and Jardiance- he is aware of side effects, risks, benefitsOz empic worked well but he cannot afford it with his insuranceH e knows to call if any signs or symptoms of UTI or groin infectionD iabetic eye exam recommende dDaily foot checks recommende d Hyperlipidemia 06651799 E78.5 On atorvastat in and ezetimibe Essential hypertension 06695398 I10 On losartan, amlodipine , metoprolol follows cardiology - Dr. Caleb eNlson at [facility] Sleep apnea 05075296 G47 .30 On CPAPGet appointmen t with pulmonolog y for compliance - has been referred Psoriatic arthritis 1563 70528 L40.50 Follows rheumatolo gy-Dr. Suarez Cosentyx, methotrexa te, prednisone prn, tramadol prnhe is aware I cannot write for narcotics out of this office Malignant neoplasm of prostate 512449090 C61 follows urology- Dr. Sanchez deferring treatment for now Testostero ne level below reference range 475587065 R89.1 follows urology as above Mixed anxi ety and depressive disorder 376699483 F41.8 Follow psychiatry -Dr. Lawrence duloxetine and Wellbutrin Call office if any change in mood or behavior Coronary atherosclerosis 257231031 I25.10 Follows Cardiology at [facility]-Dr. Caleb martin Spiedels/p stent placement Gastroesop hageal reflux disease 843541079 K21.9 on omeprazole - he is aware of side effects, risks, and benefitsLi festyle measures to decrease acid discussed Morbid obesity 270727389 E66.01 s/p bariatric surgery in the Fall at [facility] recommend healthy, well balanced mealsfocus on lean meats, fresh vegetables , fresh fruits, whole grainsredu ce fast/proce ssed foods or eating out to no more than 1-2 times per weekaim to get 30 min of exercise most days of the week- walking is a great choicealso recommend resistance training 2-3 times per week Intermitte nt claudication 79733259 I73.9 get aterial doppler Edema of l ower extremity 673938945 R60.0 s/p venous doppler- sig venous insufficie ncycompres eunice stockings recommende dnow following his cardiologi st Lumbar radiculopathy 128 302834 M54.16 patient does not want to see neurosurge ry at this time- wants to wait until he loses weight furtherwan ts to go back to pain mangementg et re-establi shed- Dr. Rochelle Grayson at [facility] precaution s [id number] Noe Mcclendon MD S_[facility] [address] [place] [address] 05/06/2023 09:21:17 05/06/2023 10:35:32 Pain of left knee joint [id number] 33015 M25.057 [id number] Haydee jasmine MD [facility] Internal Med [address] , [address] [place] [address] 07/26/2023 15:56:30 07/26/2023 16:33:01 Type 2 diabetes mellitus without complication 756550830 E11.9 On metformin and Jardiance- he is aware of side effects, risks, benefitsOz empic worked well but he cannot afford it with his insuranceH e knows to call if any signs or symptoms of UTI or groin infectionD iabetic eye exam recommende dDaily foot checks recommende d Hyperlipidemia 53996753 E78.5 On atorvastat in and ezetimibe Essential hypertension 88333146 I10 On losartan, amlodipine , metoprolol follows cardiology - Dr. Caleb Nelson at [facility] Sleep apnea 36353398 G47 .30 On CPAPGet appointmen t with pulmonolog y for compliance - has been referred Psoriatic arthritis 1563 16398 L40.50 Follows rheumatolo gy-Dr. Suarez Cosentyx, methotrexa te, prednisone prn, tramadol prnhe is aware I cannot write for narcotics out of this office Malignant neoplasm of prostate 301323432 C61 follows urology- Dr. Sanchez deferring treatment for now Testostero ne level below reference range 673573859 R89.1 follows urology as above Mixed anxi ety and depressive disorder 743532209 F41.8 Follow psychiatry -Dr. Lawrence duloxetine and Wellbutrin Call office if any change in mood or behavior Coronary atherosclerosis 152187937 I25.10 Follows Cardiology at [facility]-Dr. Caleb Garcia/p stent placement Gastroesop hageal reflux disease 022457785 K21.9 on omeprazole - he is aware of side effects, risks, and benefitsLi festyle measures to decrease acid discussed Morbid obesity 425445520 E66.01 s/p bariatric surgery in the Fall at [facility] recommend healthy, well balanced mealsfocus on lean meats, fresh vegetables , fresh fruits, whole grainsredu ce fast/proce ssed foods or eating out to no more than 1-2 times per weekaim to get 30 min of exercise most days of the week- walking is a great choicealso recommend resistance training 2-3 times per week Intermitte nt claudication 34698078 I73.9 get aterial doppler Edema of l ower extremity 720280180 R60.0 s/p venous doppler- sig venous insufficie ncycompres eunice stockings recommende dnow following his cardiologi st Lumbar radiculopathy 128 350761 M54.16 is following pain management - Dr. Rochelle Grayson at [facility] has ordered MRI of the spine but his insurance is requiring PT first before they will approveHe is very frustrated by this and has refused PTLong discussion today- I encouraged him to attend PT and do what he can, so that he can get his scans done, he expressed much frustratio n today [facility] d him as difficult as it is to go, this is how his pain dr can get the images of his spine so she knows how best to treat him, and she can see if he needs neurosurge ryI offered to fill out intermitte nt FMLA so he can attend his PT appts- he declinesov er 25 min spent with patient, over half spent on counseling ER precaution s Health Concerns Section Related Observation LastModified by Organization Detai ls LastModified Time None Recorded Concern Status LastModified by Organization Details LastModified Time None Recorded Advance Directives Directive None Recorded Payers Insurance Date Sequence Insurance Name Policy Number Policy Mccullough Covered Member ID Mccullough Member ID Guarantor Name 07/26/2023 1 [facility] ([facility] [id number] Doc Jono Green [id number] Doc Green Notes Date Note Type Note Provider Name and Address Organization Details Recorded Time 11/11/2022 text/html Doc presents today for follow-up. We discussed his lab results. His triglycerides were a little bit elevated still despite his statin and his Zetia. I was going to start him on Vascepa, however he tells me he was not fasting for his labs. He wants to wait on adding medication for now. His blood pressure is a little bit elevated today, but it has been controlled at home. He does have an upcoming appointment with his instructor watch assembly. He plans to get bariatric surgery later this year. His surgery date is tentatively set for April. He needs PCP clearance and labs for me today. He has an appointment in a couple weeks to get cardiac clearance from his instructor watch assembly. 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 Mood is well controlled on his current movements. He denies any SI or HI today. He has very early prostate cancer. He has deferred treatment for now. He tells me he talked with the urologist the urologist told him he was in his best interest to go ahead and get the bariatric surgery now and then come back and do his prostate treatment after he has healed from the surgery. He did have a positive Cologuard in August. He had his colonoscopy done in September which was negative with the exception of hemorrhoids. He is due to repeat that in 10 years. KENDELL Corado [address], [place], [address], [employer] 11/11/2022 16:35:37 03/17/2023 text/html Doc presents today for follow-up. His gastric bypass surgery scheduled for April 21. His blood pressure is a little bit elevated today, he is working with his instructor watch assembly on this. He is asymptomatic with this. He denies any chest pain, shortness of breath, palpitations, headache, or any other neuro symptoms. He continues to follow with his dredge pipe installer for the psoriatic arthritis. He is requesting I run a PSA for him. Right now he has deferred treatment of the prostate cancer. If it is worse, he plans to pursue this sooner, if not, he plans to start treatment in July after his bariatric surgery. His mood remains stable on his mood medications. He follow psychiatry for this. He denies any SI or HI today. He complains today of a long history of intermittent claudication and bilateral lower leg swelling. He reports this has been going on for several years. It has been getting worse recently. Now just walking in to a building from the parking lot has causing him bilateral leg pain. He reports his brother has the same symptoms and ended up having stents put in his legs. He is requesting Dopplers done of his legs. He denies any swelling or redness. Denies any shortness of breath, PND, or orthopnea. KENDELL Corado [address], [address], [place], [address], [employer] 03/17/2023 17:11:48 05/05/2023 text/html Doc presents today for follow-up. He had his bariatric surgery approximately 3 weeks ago. They had taken off his blood pressure medications, however his blood pressure did elevate while he was in the hospital. They restarted him on plain losartan but held the hydrochlorothiazide. He has been keeping his blood pressure log at home and his systolics been ranging from the 120s to 130s and diastolics in the 80s. He tells me overall he has been feeling well. He just had a follow-up with the surgeon yesterday and he gets to start soft foods like canned fruits today. He has been doing well postop and has not had any complications. He reports he did see Cardiology about the venous insufficiency. He reports cardiology felt like this was more of a lumbar radiculopathy rather than caused by his blood vessels. He denies any bladder bowel changes, denies any saddle paresthesias. He occasionally will have pain running down the backs of his legs. He has previously seen Pain Management at [facility] and like to go back there. He has also been having some pain in his knees. He has an appointment with Ortho tomorrow for that. He is going to be seeing Dr. Mcclendon. Today he tells me the pain is improved and not as bad as it has been. HANDY Corado-Gerber [address], [place] [address], [place], [address], [facility] 05/05/2023 11:01:28 05/06/2023 text/html patient returns today for evaluation of his left knee. Is been very painful recently. He has had symptoms for many years in both knees. Previously is right knee was worse and now his left knee is the worst. Is in the back of the knee laterally around the kneecap primarily. This become difficult for her to walk. He has had cortisone shots in the past. He takes tramadol twice a day and he also takes diclofenac 75 mg twice daily. His past history is significant for recent gastric sleeve procedure that he had just 15 days ago. He has lost 18 lb in the last 15 days on liquid diet. The stated goal of the procedure is to lose 200 lb in 1 year. His current weight today 5 ft 11 in in height 443 lb BMI of 61.8. Noe Mcclendon MD [address], [facility] [[email or web address]] [address], [place], [address], [facility] [employer] [facility] 05/06/2023 10:33:37 07/26/2023 text/html Doc presents today for follow-up. He has done very well with his weight loss since his bariatric surgery. He has lost about 115 lb. His main complaint today is his continued issues with chronic pain as well as his lumbar radicular symptoms. He is seeing pain management. His pain management doctor had ordered him an MRI, however his insurance is requiring him to do physical therapy before they will approve the MRI. He is very frustrated with this. He does not feel like he should have to go through physical therapy. He is concerned about being able to do this with his work schedule as well as his ability to participate in physical therapy. He does have another appointment on Wednesday with the pain management doctor. He denies any bladder bowel changes, denies any saddle paresthesias. He continues to follow psychiatry for his mood medications. He denies any SI or HI. Jenni Tamayo, HANDY-C [address], [address], [place], [address], [facility] [employer] [facility] 07/26/2023 17:05:51
--- OUTSIDE RECORDS SUMMARY | 2025-02-01 13:31 | XMS_ITS | Encounter Summary ---
Author Organization [facility] Healthcare Address [address] [place] [address] Care Team Providers Care Calender Wind Up Tender Name Role Phone Clarice Gold NP Primary Care Provider [phone] Rochelle Grayson MD Unavailable Jenni Tamayo AIRCRAFT TECHNICIAN Primary Care Provider [phone] Clarice Gold AIRCRAFT TECHNICIAN Primary Care Provider [phone] Reason for Visit * Reason Onset Date Comments Pre Arrival 12/08/2021 Encounter Details Date Type Department Care Team (Late st Contact Info) Description 12/08/2021 Telephone [facility] [address] [facility] 1st [place] [address] Taylor Hairston RN Pre Arrival Social History Tobacco Use Types Packs/Day Years [...] on file Legal Sex Male 11:42 AM ENVIRONMENTAL HEALTH SAFETY MANAGER Gender Identity Male 06/24/2020 11:12 AM ENVIRONMENTAL HEALTH SAFETY MANAGER Sexual Orientation Straight 06/24/2020 11 :12 AM ENVIRONMENTAL HEALTH SAFETY MANAGER documented as of this encounter Functional Status * Audit-C Score Answer Date of Assessment Author 2 12/11/2021 2:02 PM Gerber Alvarez RN * Question Answer Date of Assessment Author Q1: How often do you have a drink containing alcohol? Monthly or less 12/11/2021 2:02 PM Shelly Alvarez RN Q2: How many drinks containing alcohol do you have on a typical day when you are drinking? 1 or 2 12/11/2021 2:02 PM Shelly Alvarez RN Q3: How often do you have six or more drinks on one occasion? Less than monthly 12/11/2021 2:02 PM Shelly Alvarez RN documented as of this encounter Plan of Treatment Not on file documented as of this encounter Goals Goal Patient Goal Type Associated Problems Recent Progress Patient-Stated? Author CCM Chronic Pain Care Plan Chronic Care Management No change(07/30 3:04 PM ENVIRONMENTAL HEALTH SAFETY MANAGER) No Jane Seals RN Note: Problem: Chronic Pain Goals: 1. Minimize further functional decline 2. Maximize quality of life 3. Control pain Strategies: - Activity/exercise program recommendation - Conservative stepwise pain medicine strategy with multi-disciplinary approach - Recommend healthy lifestyle strategies and compensatory methods as needed documented as of this encounter Visit Diagnoses Not on filedocumented in this encounter Care Teams Calender Wind Up Tender Relationship Specialty Start Date End Date Clarice Gold NP [address] [place] [address] [place] [address] PCP - General Nurse Practitioner 11/18/20 01/04/23 Jenni Tamayo NP [address] [place] [address] [place] [address] PCP - General Nurse Practitioner 01/05/23 05/11/24 Clarice Gold NP [address] [place] [address] PCP - General Nurse Practitioner 05/12/24 Rochelle Grayson MD [facility] [address] Consulting Physician Pain Management 04/24/22 documented as of this encounter
[2025-02-01 15:25] LABS: Prostate Specific Antigen 1.6 ng/mL (< OR = 4.0)
[2025-02-08 14:08] LABS: Testosterone, Total, LC/MS 684 ng/dL (.)
== END 2025-02-01 13:20 | disposition home or self-care (01) ==
PROVIDERS: PCP Nurse Practitioner Adult Health; Referring Provider Urology; Visit Provider Nurse Practitioner Family
DX: M47.896 Other spondylosis, lumbar region (principal); M47.898 Other spondylosis, sacral and sacrococcygeal region; M16.0 Bilateral primary osteoarthritis of hip; N48.6 Induration penis plastica; C61 Malignant neoplasm of prostate; Z98.890 Other specified postprocedural states
CPT/HCPCS: 36415; 72192; 84153; 84403

== ENCOUNTER 2025-03-20 08:50 | Day surgery (SDC) | payer OTHER, SELFPAY ==
[2025-03-13 08:44] VITALS: BMI 41.4
--- NOTE | ~2025-03-20 | XR_ITS ---
EXAM: XR fluoroscopy no charge - 03/20/2025 11:00 CDT History: 55 years old Male with ROBERTO L3-4 TRANSFORAMINAL EPIDURAL STEROID INJ Fluoroscopy time: 15.4 seconds FINDINGS/ IMPRESSION: Multiple fluoroscopic images of lumbar spine. Reviewed, dictated and finalized at location N.
--- OUTSIDE RECORDS SUMMARY | 2025-03-20 08:58 | XMS_ITS | Clinical Summary ---
Author Organization [facility] Address [address] [place] [address] Care Team Providers Care Tail Edger Name Role Phone None, Provider MD Primary [...] on file Legal Sex Male 4:55 PM MANAGER ECONOMIC Gender Identity Not on file Sexual Orientation Not on file Last Filed Vital Signs Vital Sign Reading Time Taken Comments Blood Pressure 152/85 07/07/2022 10:17 AM MANAGER ECONOMIC Pulse 75 07/07/2022 10:17 AM MANAGER ECONOMIC Temperature 36.6 C (97.9 F) 07/07/2022 10:17 AM MANAGER ECONOMIC Respiratory Rate 16 07/07/2022 10:1 7 AM MANAGER ECONOMIC Oxygen Saturation 95% 07/07/2022 10: 17 AM MANAGER ECONOMIC Inhaled Oxygen Concentration - - Weight 210.2 kg (463 lb 6.5 oz) 07/07/2022 7:35 AM MANAGER ECONOMIC Height 188 cm (6' 2) 07/07/2022 7:35 AM MANAGER ECONOMIC Body Mass Index 59.5 07/07/2022 7:35 AM MANAGER ECONOMIC Plan of Treatment Health Maintenance Due Date [...] this topic Medical Devices Implanted Type Area Industrial Truck Driver Device Identifier Shelf Expiration Date Model / Serial / Lot Cardiac Stent [place] [address] [place] [id number] Care Teams Tail Edger Relationship Specialty Start Date End Date None, Provider, PCP - General UNKNOWN PHYSICIAN SPECIALTY 07/01/22
--- OUTSIDE RECORDS SUMMARY | 2025-03-20 08:58 | XMS_ITS | Encounter Summary ---
Author Organization [facility] Address [facility] [place] [address] Care Team Providers Care Technician Biological Health Name Role Phone None, Provider Primary Care Provider Janee ble Encounter Details Date Type Department Care Team (Late st Contact Info) Description 07/01/2022 Prep for Procedure [facility] Pre-Admission Testing [address] [id number] Seven Bello MD [address] [facility] [address] [facility] [place] [address] Social History Tobacco Use Types Packs/Day Years Used Date Smoking Tobacco: Never Smokeless Tobacco: Never Alcohol Use Standard Drinks/Week Comments Yes 3 (1 standard drink = 0.6 oz pur e alcohol) none in the last month Sex and Gender Information Value Date Recorded Sex Assigned at Not on file Legal Sex Male 4:55 PM SALES CONSULTANT INSURANCE Gender Identity Not on file Sexual Orientation Not on file COVID-19 Exposure Response Date Recorded In the last 10 days, have yo u been in contact with someone who was confirmed or suspected to have Coronavirus/COVID-19? No / Unsure 07/01/2022 2:22 PM SALES CONSULTANT INSURANCE documented as of this encounter Plan of Treatment Not on file documented as of this encounter Results * (ABNORMAL) COMPREHENSIVE METABOLIC PANEL (07/01/2022 2:26 PM SALES CONSULTANT INSURANCE) [facility] GLUCOSE 79 70 - 99 MG/DL 07/01/2022 3:16 PM SALES CONSULTANT INSURANCE [facility] BUN 27(H) 7 - 18 MG/DL 07/01/2022 3:16 PM [facility] CREATININE S/P/B 1.28 0.7 - 1.3 MG/DL 07/01/2022 3:16 PM [facility] SODIUM S/P/B 142 136 - 145 MMOL/L 07/01/2022 3:16 PM [facility] POTASSIUM S/P/B 3.8 3.5 - 5.1 MMOL/L 07/01/2022 3:16 PM [facility] CHLORIDE S/P/B 108 100 - 108 MMOL/L 07/01/2022 3:16 PM [facility] CO2 30.6 21 - 32 MMOL/L 07/01/2022 3:16 PM [facility] CALCIUM S/P/B 9.6 8.5 - 10.1 MG/DL 07/01/2022 3:16 PM [facility] BILIRUBIN TOTAL S/P/B 0.3 0.2 - 1.2 MG/DL 07/01/2022 3:16 PM [facility] Comment: THIS ASSAY IS NOT RECOMMENDED FOR PATIENTS UNDERGOING TREATMENT WITH ELTROMBOPAG DUE TO THE POTENTIAL FOR FALSELY ELEVATED RESULTS. TOTAL PROTEIN S/P/B 7.8 6.4 - 8.2 G/DL 07/01/2022 3:16 PM [facility] ALBUMIN S/P/B 4.3 3.4 - 5.0 G/DL 07/01/2022 3:16 PM [facility] AST 24 15 - 37 U/L 07/01/2022 3:16 PM [facility] ALT 55 16 - 60 U/L 07/01/2022 3:16 PM [facility] ALKALINE PHOSPHATASE S/P/B 69 50 - 136 U/L 07/01/2022 3:16 PM [facility] ANION GAP 3.4(L) 5 - 15 MMOL/L 07/01/2022 3:16 PM SALES CONSULTANT INSURANCE [facility] BUN CREATININE RATIO 21.1 6 - 26 07/01/2022 3:16 PM [facility] A/G RATIO 1.2 1.0 - 2.0 RATIO 07/01/2022 3:16 PM [facility] GFR ESTIMATE 68(L) >90 ML/MIN/1.7 3 M2 07/01/2022 3:16 PM SALES CONSULTANT INSURANCE [facility] Comment: NOTE: eGFR is not calculated for patients <18 years of age. This is an estimated GFR calculation using the new CKD EPI creatinine equation without race and so does not require a correction factor for race. This estimated GFR should not be used for calculating drug doses. 07/01/2022 2:26 PM SALES CONSULTANT INSURANCE Seven Bello MD LABORATORY Final Res ult [facility] [address] [place] [address], [place] [phone] * CULTURE URINE (07/01/2022 2:26 PM SALES CONSULTANT INSURANCE) SPEC DESCRIPTION URINE CLEAN CATCH 07/01/2022 2:26 PM SALES CONSULTANT INSURANCE [facility] SPECIAL REQUESTS NO SPECIAL REQUEST 07/01/2022 2:26 PM SALES CONSULTANT INSURANCE [facility] CULTURE RESULT NO GROWTH 2 DAYS 07/03/2022 8:08 AM SALES CONSULTANT INSURANCE [facility] URINE SPECIMEN OBTAINED BY CLEAN CATCH PROCEDURE / Unknown 07/01/2022 2:26 PM SALES CONSULTANT INSURANCE 07/01/2022 2:33 PM SALES CONSULTANT INSURANCE Seven Bello MD MICROBIOLOGY - GENERAL OR DERABLES Final Result [facility] [address] [place] [address], [place] [phone] * (ABNORMAL) URINALYSIS WI REFLEX TO CULTURE (07/01/2022 2:26 PM SALES CONSULTANT INSURANCE) SPECIMEN TYPE URINE CLEAN CATCH 07/01/2022 2:26 PM SALES CONSULTANT INSURANCE [facility] COLOR (U) LIGHT YELLOW 07/01/2022 3:09 PM [facility] TRANSPARENCY CLEAR 07/01/2022 3:09 PM [facility] SPECIFIC GRAVITY (U) 1.028 1.001 - 1.030 07/01/2022 3:09 PM [facility] U PH 5.5 5.0 - 9.0 07/01/2022 3:09 PM [facility] LEUKOCYTES (U) NEGATIVE NEGATIVE 07/01/2022 3:09 PM [facility] NITRITES NEGATIVE NEGATIVE 07/01/2022 3:09 PM [facility] PROTEIN (U) NEGATIVE <30 MG/DL 07/01/2022 3:09 PM [facility] URINE GLUCOSE >1000(A) NORMAL MG/DL 07/01/2022 3:09 PM [facility] KETONES MG/DL (U) NEGATIVE NEGATIVE MG/DL 07/01/2022 3:09 PM [facility] UROBILINOGEN NORMAL NORMAL MG/DL 07/01/2022 3:09 PM [facility] BILIRUBIN (U) NEGATIVE NEGATIVE MG/DL 07/01/2022 3:09 PM [facility] BLOOD (U) NEGATIVE NEGATIVE 07/01/2022 3:09 PM [facility] CULTURE & SENSITIVITY INDICATED? CULTURE IS NOT INDICATED 07/01/2022 3:09 PM SALES CONSULTANT INSURANCE [facility] WBC/HPF <1 <6 /HPF 07/01/2022 3:09 PM SALES CONSULTANT INSURANCE [facility] RBC/HPF <1 <6 /HPF 07/01/2022 3:09 PM SALES CONSULTANT INSURANCE [facility] URINE SPECIMEN OBTAINED BY CLEAN CATCH PROCEDURE / Unknown 07/01/2022 2:26 PM SALES CONSULTANT INSURANCE Seven Bello MD URINE ORDERABLES Final Re sult Performing Organization Address City/[facility]/ZIP Co de Phone Number [facility] [address] [place] [address], [place] [phone] * PROTIME/INR, VENOUS (07/01/2022 2:26 PM SALES CONSULTANT INSURANCE) PROTIME 11.2 10.2 - 12.9 SEC 07/01/2022 3:19 PM SALES CONSULTANT INSURANCE [facility] INR 1.0 07/01/2022 3:19 PM SALES CONSULTANT INSURANCE [facility] Comment: Recommended INR Therapeutic Goals: 2.0-3.0 Routine Therapy 2.5-3.5 Mechanical Prosthetic Valves (High Risk) 07/01/2022 2:26 PM SALES CONSULTANT INSURANCE Seven Bello MD LABORATORY Final Res ult [facility] [address] [place] [address], [place] [phone] * PTT, PARTIAL THROMBOPLASTIN TIME (07/01/2022 2:26 PM SALES CONSULTANT INSURANCE) PTT 29.8 25.1 - 36.5 SEC 07/01/2022 3:19 PM SALES CONSULTANT INSURANCE [facility] 07/01/2022 2:26 PM SALES CONSULTANT INSURANCE us Seven Bello MD LABORATORY Final Res ult [facility] [address] [place] [address], [place] [phone] * (ABNORMAL) CBC W/DIFF AUTOMATED (07/01/2022 2:26 PM SALES CONSULTANT INSURANCE) Pathologist [facility] WBC 11.4(H) 4.5 - 11.0 x10'3/uL 07/01/2022 2:53 PM SALES CONSULTANT INSURANCE [facility] RBC 4.95 4.70 - 6.10 x10'6/uL 07/01/2022 2:53 PM SALES CONSULTANT INSURANCE [facility] HGB 15.3 14.0 - 18.0 G/DL 07/01/2022 2:53 PM SALES CONSULTANT INSURANCE [facility] HCT 48.1 43.0 - 54.0 % 07/01/2022 2:53 PM SALES CONSULTANT INSURANCE [facility] MCV 97.2(H) 80.0 - 94.0 FL 07/01/2022 2:53 PM SALES CONSULTANT INSURANCE [facility] MCH 30.9 27.0 - 31.0 PG 07/01/2022 2:53 PM SALES CONSULTANT INSURANCE [facility] MCHC 31.8(L) 32.0 - 36.0 G/DL 07/01/2022 2:53 PM SALES CONSULTANT INSURANCE [facility] RDW 16.6(H) 11.5 - 14.5 % 07/01/2022 2:53 PM SALES CONSULTANT INSURANCE [facility] PLT 306 130 - 400 x10'3/uL 07/01/2022 2:53 PM SALES CONSULTANT INSURANCE [facility] MPV 8.9(L) 9.3 - 12.2 FL 07/01/2022 2:53 PM SALES CONSULTANT INSURANCE [facility] DIFFERENTIAL TYPE AUTOMATED DIFFERENTIAL 07/01/2022 2:53 PM SALES CONSULTANT INSURANCE [facility] NEUTROPHILS % 68.1 % 07/01/2022 2:53 PM SALES CONSULTANT INSURANCE [facility] LYMPHOCYTES % 21.7 % 07/01/2022 2:53 PM SALES CONSULTANT INSURANCE [facility] MONOCYTES % 8.2 % 07/01/2022 2:53 PM SALES CONSULTANT INSURANCE [facility] EOSINOPHILS 0.5 % 07/01/2022 2:53 PM SALES CONSULTANT INSURANCE [facility] BASOPHILS 0.6 % 07/01/2022 2:53 PM SALES CONSULTANT INSURANCE [facility] IMMATURE GRANS % 0.9 % 07/01/20 2:53 PM SALES CONSULTANT INSURANCE [facility] ABS. NEUTROPHILS TOTAL 7.76(H) 1.80 - 7.70 x10'3/uL 07/01/2022 2:53 PM SALES CONSULTANT INSURANCE [facility] ABS. LYMPHOCYTES 2.47 1.00 - 4.80 x10'3/uL 07/01/2022 2:53 PM SALES CONSULTANT INSURANCE [facility] ABS. MONOCYTES 0.94(H) 0.30 - 0.82 x10'3/uL 07/01/2022 2:53 PM SALES CONSULTANT INSURANCE [facility] ABS. EOSINOPHILS 0.06 0.04 - 0.54 x10'3/uL 07/01/2022 2:53 PM SALES CONSULTANT INSURANCE [facility] ABS. BASOPHILS 0.07 0.01 - 0.08 x10'3/uL 07/01/2022 2:53 PM SALES CONSULTANT INSURANCE [facility] ABS. IMMATURE GRANULOCYTES 0.10 0.00 - 0.49 x10'3/uL 07/01/2022 2:53 PM SALES CONSULTANT INSURANCE [facility] 07/01/2022 2:26 PM SALES CONSULTANT INSURANCE us Seven Bello MD LABORATORY Final Res ult [facility] [address] [place] [address], [place] [phone] documented in this encounter Visit Diagnoses Diagnosis Elevated prostate specific antigen (PSA)- Primary Preop examination Preoperative examination, unspecified documented in this encounter Care Teams Technician Biological Health Relationship Specialty Start Date End Date None, Provider, PCP - General UNKNOWN PHYSICIAN SPECIALTY 07/01/22 documented as of this encounter
--- OUTSIDE RECORDS SUMMARY | 2025-03-20 08:58 | XMS_ITS | Clinical Summary ---
Author Organization ID [facility] Address [address] [address] Care Team Providers Care Tobacco Wrapping Machine Tender Name Role Phone Unavailable Primary Care Provider [...] = 0.6 oz pur e alcohol) rare Feeling Safe Answer Date Recorded Are you in a relationship wi th someone who hurts you emotionally and/or physically? No 04/21/2023 Food Insecurity Answer Date Recorded Social/Environmental Concerns No concerns Transportation Needs Answer Date Record ed Social/Environmental Concerns No concerns Housing Stability Answer Date Recorded Social/Environmental Concerns No concerns Utility Needs Answer Date Recorded Social/Environmental Concerns No concerns Sex and Gender Information Value Date Recorded Sex Assigned at Not on file Legal Sex Male 8:14 AM INSIGHT LEADER Gender Identity Not on file Sexual Orientation [...] 06/24/2021, 2019 Medical Devices Implanted Type Area Skate Shop Attendant Device Identifier Shelf Expiration Date Model / Serial / Lot Seamguard Endogia 60 [id number] [id number] - [id number] Implanted:Qt y: 1 on 04/21/2023 by Matthew Coronel MD at [facility] Biological N/A: Stomach [employer] [id number] 12/23/2025 12BSGTRI 60B / / [id number] Seamguard Endogia 60 Prpl [id number] - [id number] Implanted:Qt y: 1 on 04/21/2023 by Matthew Coronel MD at [facility] Biological N/A: Stomach [employer] [id number] 12/21/2025 12BSGTRI 60P / / [id number] Seamguard Endogia 60 Prpl [id number] - [id number] Implanted:Qt y: 1 on 04/21/2023 by Matthew Coronel MD at [facility] Biological N/A: Stomach [employer] [id number] 12/21/2025 12BSGTRI 60P / / [id number] Seamguard Endogia 60 Prpl [id number] - [id number] Implanted:Qt y: 1 on 04/21/2023 by Matthew Coronel MD at [facility] Biological N/A: Stomach [employer] [id number] 12/21/2025 12BSGTRI 60P / / [id number] Seamguard Endogia 60 Prpl [id number] - [id number] Implanted:Qt y: 1 on 04/21/2023 by Matthew Coronel MD at [facility] Biological N/A: Stomach [employer] [id number] 12/08/2025 12BSGTRI 60P / / [id number] Credit Rating Inspector Ligamax Endo Multi Clip 5mm El5ml - [id number] Implanted:Qt y: 1 on 04/21/2023 by Matthew Coronel MD at [facility] Clip N/A: Stomach [employer] [id number] 01/16/2028 EL5ML / / [id number] Dental Implants Cardiac Stent Insurance RX [employer] Commercial RX [employer] PLANS (INTERNAL) [facility] Internal Plans Advance Directives For more information, please contact: [phone] * Full Code (Latest Code Status on File) Date Activated Date Inactivated Comments 04/21/2023 8:28 AM 04/22/2023 5:41 PM * Full Code Date Activated Date Inactivated Comments 04/21/2023 6:11 AM 04/21/2023 8:28 AM
--- OUTSIDE RECORDS SUMMARY | 2025-03-20 08:58 | XMS_ITS | Patient Health Record ---
Author Organization [facility] Address [address] [place] [address] Care Team Providers Care Melon Packer Name Role Phone Sherman Leon Unavailable [phone] Allergies No Known Allergies Results Component Value Reference Range Notes UDT Reviewed date:10/24/2024 04:47:19 PM Interpretation: Performing Lab: Notes/Report: THC NEG 0 - 50 ng/ml Cocaine NEG 0 - 300 ng/ml Amphetamine NEG 0 - 1000 ng/ml Buprenorphine (BUP) NEG 0 - 10 ng/ml Secobarbital (Bar) NEG 0 - 300 ng/ml Oxazepam (BZO) NEG 0 - 300 ng/ml 4-bevkakhthr-6,0-xyipggmk-0,3-diphenylpyrrolidine (JAYLYN P) NEG 0 - 300 ng/ml Methamphetamine (MET) NEG 0 - 1000 ng/ml Methylenedioxymethamphetamine (MDMA) NEG 0 - 500 ng/ml Morphine (MOP 300/FTL8319) NEG 0 - 300 ng/ml Methadone (MTD) NEG 0 - 300 ng/ml Phencyclidine (PCP) NEG 0 - 25 ng/ml Nortriptyline (TCA) NEG 0 - 1000 ng/ml Oxycodone NEG 0 - 300 ng/ml x NEG 0 - 300 ng/ml Reason For Referral No Information Medications Medication SIG (Take, Route, Frequency, Duration) Notes Start Date End Date Status Atomoxetine HCl 80 MG Capsule 1 capsule Orally Once a day; Duration: 90 days Active DULoxetine HCl 60 MG Capsule Delayed Release Particles 1 capsule Oral Once a day; Duration: 90 days Active azaTHIOprine 50 MG Tablet TAKE 2 TABLETS BY MOUTH EVERY DAY Oral; Duration: 90 Days Active traMADol HCl 50 MG Tablet PLEASE SEE ATT ACHED FOR DETAILED DIRECTIONS Oral; Duration: 30 Days Active Gabapentin 300 MG Capsule TAKE 1 TABLET BY MOUTH IN MORNING, AND TAKE 2 TABLETS BY MOUTH AT BEDTIME Oral; Duration: 30 Days Active Atomoxetine HCl 40 MG Capsule TAKE 1 CAPSULE BY MOUTH EVERY DAY FOR 90 DAYS; Duration: 90 Active Atorvastatin Calcium 80 MG Tablet TAKE 1 TABLET BY MOUTH EVERY DAY Oral; Duration: 90 Days Active amLODIPine Besylate 10 MG Tablet TAKE 1 TABLET BY MOUTH EVERY DAY Oral; Duration: 90 Days Active Immunizations Vaccine Route Administration Date Status Comme nts Influenza virus vaccine, quadrivalent (IIV4), split virus, 0.25 mL dosage Unknown 04/22/2020 Administered Novel [id number], preservative free Unknown 06/24/2021 Administered Social History Sex Assigned At : Social History Observation Description Sex Assigned At Male Social History Additional Details Category Social Info Options Details Migrated Social History Migrated Social History Alcohol Intake: None 08/04/2023,Tobacco Years: Never smoker 04/03/2019 Section Notes: 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 [employer] Hours Problems Problem Type SNOMED Code ICD Code Onset Dates Problem Status W/U Status Risk Notes Problem Severe recurrent major depression without psychotic features (53527803) Major depressive disorder, recurrent severe without psychotic features (F33.2) 12/02/19 24 Active confirmed Problem Generalized anxiety disorder (79292116) Generalized anxiety disorder (F41.1) 12/02/19 24 Active confirmed Problem Obstructive sleep apnea syndrome (disorder) (24926179) Obstructive sleep apnea (adult) (pediatric) (G47.33) 12/02/19 24 Active confirmed Problem Essential hypertension (08298912) Essential (primary) hypertension (I10) 12/02/19 24 Active confirmed Problem Attention deficit hyperactivity disorder (079000682) ADHD (attention deficit hyperactivity disorder), combined type [...] N/A Encounters Encounter Location Date Provider Diagnosis [facility] [place] [id number] [facility] [address] [address] 06/26/2024 Sherman Carolyn [facility] [address] [address] 07/17/2024 Sherman Carolyn Generalized anxiety disorder F41.1 ; Major depressive disorder, recurrent severe without psychotic features F33.2 ; Essential (primary) hypertension I10 and Obstructive sleep apnea (adult) (pediatric) G47.33 [facility] [place] [address] [address] 10/12/2024 Sherman Carolyn Benign essential HTN I10 ; Encounter for screening for depression Z13.31 ; Generalized anxiety disorder F41.1 ; Major depressive disorder, recurrent severe without psychotic features F33.2 ; Essential (primary) hypertension I10 ; Obstructive sleep apnea (adult) (pediatric) G47.33 and Attention deficit hyperactivity disorder (ADHD), combined type F90.2 [facility] [address] [address] 10/23/2024 Sherman Carolyn Lack of concentratio n R41.840 [facility] [place] [address] [facility] [address] [address] 11/23/2024 Sherman Carolyn Major depressive disorder, recurrent severe without psychotic features F33.2 ; Obstructive sleep apnea (adult) (pediatric) G47.33 ; ADHD (attention deficit hyperactivity disorder), combined type F90.2 ; Encounter for screening for cardiovascular disorders Z13.6 ; Dietary counseling and surveillance Z71.3 ; Benign essential HTN I10 and Encounter for screening for depression Z13.31 [facility] [employer] [place] [address] [address] 01/11/2025 Sherman Carolyn Major depressive disorder, recurrent [...] medication dosing to bedtime if fatigue persists. 01/11/2025 ADHD (attention deficit hyperactivity disorder), combined [...] screening for depression (ICD-10 - Z13.31) 11/23/2024 ADHD (attention deficit hyperactivity disorder), combined type (ICD-10 - F90.2) 07/17/2024 Major depressive disorder, recurrent severe without [...] - Z13.6) 01/11/2025 Encounter for screening for depression (ICD-10 [...] adjustments as needed to optimize treatment outcomes. 11/23/2024 Benign essential HTN (ICD-10 - I10) 10/12/2024 Essential (primary) hypertension (ICD-10 - I10) 10/12/2024 Attention deficit hyperactivity disorder (ADHD), combined type (ICD-10 - F90.2) 11/23/2024 Encounter for screening for depression (ICD-10 - Z13.31) 10/12/2024 Obstructive sleep apnea (adult) (pediatric) (ICD-10 - G47.33) 10/12/2024 Other Problem-Based Assessment and Plan Robbie [...] ensure accuracy, there may be errors, including global compensation director inaccuracies and misspellings of medication names. This [...] Name:Sherman Leon , 04/12/2025 03:30:00 PM, [address] [facility] [address], [place], [address], Insurance Providers Payer Name Payer Address Payer Phone Subscriber Number Group Number Insured Name Patient Relationship to Insured Coverage Start Date Coverage End Date [facility] [address] [place] [address] [id number] ROBBIE FRANCE Self - patient is the insured 4 [facility] [address] [address] [place] [address] [id number] ROBBIE FRANCE Self - patient is the [...]
--- OUTSIDE RECORDS SUMMARY | 2025-03-20 08:58 | XMS_ITS | Clinical Summary ---
Author Organization [facility] Address [address] [place] [address] Care Team Providers Care Death Surveys Coder Name Role Phone Jenni Tamayo JUNK REMOVAL SPECIALIST-WELDING FOREMAN Primary Care Provider [phone] Source Comments [facility],non-owned Affiliates and Associated Physician Practices is amultiple site organization consisting of ambulatory clinics and hospital sitesin [place], [place], [place] and [place]. This disclosure is being madepursuant to the Care Everywhere program and may not contain all information available regarding this patient. Last updated 18.[facility] Allergies No known active allergies Medications * [...] daily 3 Active B-D 3CC LUER-ANAND SYR 88NQ7-6/2 21G X 1-1/2 3 ML MISC as [...] on file Legal Sex Male 7:29 PM TORTILLA MAKER Gender Identity Not on file Sexual Orientation Not on file Last Filed Vital Signs Vital Sign Reading Time Taken Comments Blood Pressure - - Pulse - - Temperature - - Respiratory Rate - - Oxygen Saturation - - Inhaled Oxygen Concentration - - Weight 179.2 kg (395 lb) 06/08/2023 10:29 AM TORTILLA MAKER Height 189 cm (6' 2.4) 06/08/2023 10:29 AM TORTILLA MAKER Body Mass Index 50.17 06/08/2023 10:29 AM TORTILLA MAKER Plan of Treatment Health Maintenance Due Date [...] patient's age to complete this topic Insurance Care Teams Death Surveys Coder Relationship Specialty Start Date End Date Jenni Tamayo APRN-NAYAN [address] [facility] [address] [place] [id number] PCP - General Nurse Practitioner Family 05/04/23
--- OUTSIDE RECORDS SUMMARY | 2025-03-20 08:58 | XMS_ITS | Clinical Summary ---
Author Organization [facility] Address [address] [place] [address] Care Team Providers Care Special Effects Person Name Role Phone Rochelle Grayson MD Unavailable Clarice Gold NP Primary Care Provider [phone] Allergies No known active allergies Medications aspirin (ASPIRIN LOW DOSE) 81 mg tablet take 1 tablet by oral route every day 0 0 6 Active omeprazole (PriLOSEC) 40 mg capsule as needed Active traMADoL (ULTRAM) 50 mg tablet Take 1 tablet (50 mg total) by mouth 2 (two) times a day 1 Active amLODIPine (NORVASC) 5 mg tablet Take 1 tablet (5 mg total) by mouth daily 2 Active predniSONE (DELTASONE) 5 mg tablet 2 Active metoprolol XL (TOPROL-XL) 50 mg extended release tablet TAKE 1 TABLET BY MOUTH EVERY DAY 90 tablet 3 3 Active gabapentin (NEURONTIN) 300 mg capsule TAKE 1 TABLET BY MOUTH IN MORNING, AND TAKE 2 TABLETS BY MOUTH AT BEDTIME 4 Active azaTHIOprine (IMURAN) 50 mg tablet Take 2 tablets (100 mg total) by mouth daily 4 Active atorvastatin (LIPITOR) 80 mg tablet TAKE 1 TABLET BY MOUTH EVERY DAY 90 tablet 3 5 Active losartan (COZAAR) 100 mg tablet Take 1 tablet (100 mg total) by mouth daily 90 tablet 1 5 Active losartan (COZAAR) 100 mg tablet Take 1 tablet (100 mg total) by mouth daily 3 03/07/20 Discontinu ed(Reorder ) Active Problems Problem Noted Date Diagnosed Date [...] weight loss without success. Plan: Refer to [facility]'s bariatric program Assessment & Plan (04/07/2019 [...] reflux. Have encouraged him to purchase intake [id number] Nexium. If his symptoms are not improved [...] (10/24/2016): Dyspnea on exertion Coronary arteriosclerosis in [place] artery 09/25 Overview (10/24/2016): Coronary arteriosclerosis in [place] artery Assessment & Plan (05/12/2024 2:44 PM [...] obesity 09/11/2015 04/08/2017 Overview (10/22/2016): Morbid obesity Encounters Date Type Department Care Team Description 03/12/2025 Telephone [facility] Cardiology [address] [facility] [address] [place] [address] Abelino Rodriguez MD Surgical Clearance from Last 3 Months Immunizations Immunization Administration Dates Next Due Influenza, [...] Meinhardt Coronary artery disease Brother 1 Elias Meijolieardt Coronary artery disease; Depression Brother 1 Elias Meinhardt Diabetes Brother 1 Elias Meinhardt Heart disease Brother 1 Elias Meijolieardt Diabetes Brother 2 Domo Green Heart disease Brother 3 Chito Green COPD Father Domo Green Cancer Father Domo Meinhardt Coronary artery disease Father Domo Green Co ronary artery disease; Hearing loss Father Domo Green Heart disease Father Domo Green Coronary artery disease Mother Allie Villarreal dt Heart attack Mother Allie Green Heart disease Mother Allie Green Coronary artery disease Sister Relation Name Status Comments Brother 1 Elias Green Brother 2 Domo Green Brother 3 Chito Green Father Domo Green Mother Allie Green Sister Social History Tobacco Use Types Packs/Day [...] on file Legal Sex Male 11:42 AM WASTEWATER SUPERVISOR Gender Identity Male 06/24/2020 11:12 AM WASTEWATER SUPERVISOR Sexual Orientation Straight 06/24/2020 11 :12 AM WASTEWATER SUPERVISOR Obstetrics History Last Filed Vital Signs Vital Sign Reading Time Taken Comments Blood Pressure 128/84 05/12/2024 2:18 PM CDT Pulse 68 05/12/2024 2:18 PM CDT Temperature 36.1 C (97 F) 07/30/2023 3:03 PM WASTEWATER SUPERVISOR Respiratory Rate 16 07/30/2023 3:03 PM WASTEWATER SUPERVISOR Oxygen Saturation 98% 05/12/2024 2:18 PM CDT [...] 3, 06/24/2021, 04/22/2020 Lipid Panel 05/12/2025 05/12/2024, 07/2022, 05/22/2022, Additional history exists Goals Goal Patient Goal Type Associated Problems Recent Progress Patient-Stated? Author CCM Chronic Pain Care Plan Chronic Care Management No change(07/30 3:04 PM WASTEWATER SUPERVISOR) No Jane Seals, RN Note: Problem: Chronic Pain Goals: 1. Minimize further functional decline 2. Maximize quality of life 3. Control pain Strategies: - Activity/exercise program recommendation - Conservative stepwise pain medicine strategy with multi-disciplinary approach - Recommend healthy lifestyle strategies and compensatory methods as needed Medical Devices Implanted Type Area Clinical Safety Manager Device Identifier Shelf Expiration Date Model [...] Most Recently Relevant to Health Maintenance Insurance [employer] Care Teams Special Effects Person Relationship Specialty Start Date End Date Clarice Gold NP [address] [place] [address] PCP - General Nurse Practitioner 05/12/24 Rochelle Grayson MD Consulting Physician Pain Management 04/24/22
--- OUTSIDE RECORDS SUMMARY | 2025-03-20 08:59 | XMS_ITS ---
Author Organization [facility] Address [address] [place] [address] Care Team Providers Care Import Export Agent Name Role Phone Rochelle Grayson MD Unavailable Clarice Gold NP Primary Care Provider [phone] Active Problems Problem Noted Date Diagnosed Date [...] weight loss without success. Plan: Refer to [facility]'s bariatric program Assessment & Plan [...] reflux. Have encouraged him to purchase intake [id number] Nexium. If his symptoms are not improved [...] (10/24/2016): Dyspnea on exertion Coronary arteriosclerosis in [place] artery 09/25 Overview (10/24/2016): Coronary arteriosclerosis in [place] artery Assessment & Plan (05/12/2024 2:44 PM [...]
--- OUTSIDE RECORDS SUMMARY | 2025-03-20 08:59 | XMS_ITS | Encounter Summary ---
Author Organization [facility] Address [address] [place] [address] Care Team Providers Care Chromium Plater Name Role Phone Clarice Gold CONSUMER INSIGHTS SPECIALIST Primary Care Provider [phone] Rochelle Grayson MD Unavailable [phone] Jenni Tamayo CONSUMER INSIGHTS SPECIALIST Primary Care Provider [phone] Clarice Gold CONSUMER INSIGHTS SPECIALIST Primary Care Provider [phone] Reason for Visit * Reason Onset Date Comments Pre Arrival 12/08/2021 Encounter Details Date Type Department Care Team (Late st Contact Info) Description 12/08/2021 Telephone [place] [id number] [address] Taylor Hairston RN Pre Arrival Social [...] on file Legal Sex Male 11:42 AM COMPUTER EQUIPMENT INSTALLER Gender Identity Male 06/24/2020 11:12 AM COMPUTER EQUIPMENT INSTALLER Sexual Orientation Straight 06/24/2020 11 :12 AM COMPUTER EQUIPMENT INSTALLER documented as of this encounter Functional Status * AUDIT-C Score Answer Date of Assessment Author 2 [...] Chronic Care Management No change(07/30 3:04 PM COMPUTER EQUIPMENT INSTALLER) No Jane Seals RN Note: Problem: Chronic Pain Goals: 1. Minimize further functional decline 2. Maximize quality of life 3. Control pain Strategies: - Activity/exercise program recommendation - Conservative stepwise pain medicine strategy with multi-disciplinary approach - Recommend healthy lifestyle strategies and compensatory methods as needed documented as of this encounter Visit Diagnoses Not on filedocumented in this encounter Care Teams Chromium Plater Relationship Specialty Start Date End Date Clarice Gold NP [address] [place] [address] [place] [address] PCP - General Nurse Practitioner 11/18/20 01/04/23 Jenni Tamayo NP [address] [place] [address] [place] [address] PCP - General Nurse Practitioner 01/05/23 05/11/24 Clarice Gold NP [address] [place] [address] PCP - General Nurse Practitioner 05/12/24 Rochelle Grayson MD [facility] [place] [address] Consulting Physician Pain Management 04/24/22 documented as of this encounter
[2025-03-20 09:54] VITALS: BP 131/104; PULSE 90; RESP 20; TEMP 36.5; O2SAT 100; BMI 40.5
--- NOTE | 2025-03-20 10:50 | WPDHPUPDATE1 ---
History and Physical Update Update Date/Time: 03/20/25 10:50 History and Physical has been reviewed, including an updated exam of the patient. There are NO changes in the patient's condition. Risks, benefits, and alternatives have been discussed and questions answered. Patient agrees to proceed with procedure.
--- NOTE | 2025-03-20 10:51 | W.PM.PROC2 ---
Procedure Note - Detailed Date of Procedure 03/20/25 Pre-op Diagnosis Lumbar Spinal Stenosis w/Neurogenic Claudication Post-op Diagnosis Same Procedure Performed Bilateral Lumbar Transforaminal Epidural Steroid Injection under Fluoroscopic Guidance and with Contrast Control at L3-4. Surgeon Edgar Holly MD Anesthesia Local Description of Procedure INFORMED CONSENT: Risks, benefits and alternatives to the procedure were discussed in detail with the patient who expressed explicit understanding and consent to proceed. Patient was informed verbally and in written form regarding the risks associated with the procedure including the low risk of serious infection, bleeding/bruising, allergic reaction, nerve or organ injury, paralysis, procedural site pain or discomfort, worsening pain and/or mobility, failure to treat and/or disfigurement. The patient expressed explicit understanding and consent to proceed. All materials required for the procedure were available prior to procedure start. Site and side was marked prior to procedure and confirmed in the presence of the patient. PROCEDURE IN DETAIL: The patient was brought to the procedural suite and placed in the prone position. Patient was made comfortable with use of pillows under the head/chest, hips and ankles. Skin overlying the injection site was prepared broadly with ChloraPrep applicator and draped in a sterile manner. Aseptic technique was employed throughout. The endplates of the vertebral body at the site of interest were aligned in the AP view. Ipsilateral oblique angulation was utilized to better visualize the neuroforamen of interest. Local anesthesia was established by infiltration with approximately 5 mL of 0.5% PF lidocaine via a 1-1/2 inch 27-gauge needle. A 22-gauge 5.0 inch Leonidas (pencil point) spinal needle was advanced until the needle approached the 6 o'clock position on the pedicle just superior to the exiting nerve root. on the right at L3-4. Lateral view was utilized to confirm appropriate position of the needle tip within the superior and posterior portion of the respective foramen. In an AP view, 1 mL of Omnipaque 300 contrast medium was injected after negative aspiration for CSF, blood or other bodily fluid, showing appropriate neurogram without evidence of intravascular or intrathecal spread of contrast. Digital subtraction imaging was used with an additional 1ml of the same contrast medium to confirm absence of intravascular contrast spread. A 1mL solution containing 5 mg of dexamethasone was injected after negative repeat aspiration. Appropriate spread of the injectate was confirmed with washout of previously injected contrast. No parasthesias were elicited. Needle was removed completely intact without difficulty. The same exact procedure was repeated for all remaining levels on the contralateral side, left L3-4 neuroforamen, modified as necessary to accommodate for the new target location with identical findings and results and no evidence of complication. Images were saved and documented in the patient chart. Patient's skin was cleaned and sterile bandage applied. The patient tolerated the procedure well. The patient was transported to the recovery area in stable condition where they were observed for an appropriate amount of time prior to discharge, without evidence of complication. The patient was instructed to avoid excessive activity for the next 48 hours, including climbing and frequent use of stairs. Showers only for 48 hours. They were instructed not to drive or operate heavy machinery for 24 hours. They are to monitor for severe headaches, fevers, chills, night sweats, erythema/swelling at the site or any other signs of infection, bleeding/bruising, bowel or bladder changes as well as new pain, weakness or numbness in the upper or lower extremity. Should they notice these changes, they are instructed to call our office immediately or report directly to the nearest Emergency Department if no answer or if after posted office hours. COMPLICATIONS: None COMMENTS: None CONTRAST WASTED: 26 mL Omnipaque 300. STEROID WASTED: 0 mg of dexamethasone. Complications No immediate complications Condition Stable Disposition Same day [facility] Billing Surgery - Charge Forward: Surgery Billing
[2025-03-20] MEDS: LIDOCAINE 1% PF INJ 5 ML VIAL INFILTRATE (10:59)
[2025-03-20 11:00] VITALS: BP 139/79; PULSE 72; RESP 12; O2SAT 98
[2025-03-20] MEDS: dexAMETHasone SOD PHOS INJ 10 MG/ML 1 ML VIAL IM (11:01)
[2025-03-20] MEDS: LIDOCAINE 2% PF LOCAL INJ 5 ML VIAL INFILTRATE (11:01)
[2025-03-20 11:05] VITALS: BP 153/89; PULSE 78; RESP 12; O2SAT 99
[2025-03-20 11:10] VITALS: BP 126/90; PULSE 89; RESP 18; O2SAT 100
== END 2025-03-20 11:25 | disposition home or self-care (01) ==
PROVIDERS: PCP Nurse Practitioner Adult Health; Visit Provider Anesthesiology Pain Medicine
PROC: (CPT 64483; principal; 2025-03-20 10:10)
DX: M48.062 Spinal stenosis, lumbar region with neurogenic claudication (principal)
CPT/HCPCS: 64483; 99199; J1100

== ENCOUNTER 2025-04-09 15:26 | Outpatient (CLI) | payer OTHER, SELFPAY ==
--- NOTE | ~2025-04-09 | MR_ITS ---
EXAMINATION: MR lumbar spine wo con DATE: 04/09/2025 16:14 INDICATION: Spinal stenosis, lumbar region with neurogenic claudication. TECHNIQUE: Magnetic resonance imaging (MRI) of the lumbar spine was performed without intravenous contrast. Sequences included sagittal T2-weighted FSE, sagittal T2-weighted FS FSE, sagittal T1-weighted FSE, and axial T2-weighted FSE. COMPARISON: Lumbar spine MRI 10/02/2023 FINDINGS: There is 3 mm anterolisthesis of L2 on L3 and L4 and L5 and 3 mm retrolisthesis of L5 on S1. There are Schmorl's nodes at all levels. There is moderately decreased disc height at L1-L2, L2-L3, and L3-L4, mildly decreased disc height at L4-L5, and severely decreased disc height at L5-S1. The distal spinal cord signal intensity is normal. The conus medullaris is at T12-L1. The following disc levels are specifically discussed: L1-L2: The disc is bulging and has an annular fissure. There is severe bilateral facet joint osteoarthritis. There is mild bilateral neural foraminal stenosis. There is mild central canal stenosis. L2-L3: The disc is bulging and has an annular fissure. There is severe bilateral facet joint osteoarthritis. There is mild right and moderate left neural foraminal stenosis. There is mild central canal stenosis. There is moderate stenosis of left lateral recess. L3-L4: The disc is bulging and has an annular fissure. There is severe right and moderate left facet joint osteoarthritis. There is moderate right and mild left neural foraminal stenosis. There is mild central canal stenosis. L4-L5: The disc is bulging and has an annular fissure. There is severe bilateral facet joint osteoarthritis. There is mild right and moderate left neural foraminal stenosis. There is mild central canal stenosis. There is posterior decompression. L5-S1: The disc is bulging with superimposed right subarticular zone extrusion. There is moderate bilateral facet joint osteoarthritis. There is moderate bilateral neural foraminal stenosis. There is mild central canal stenosis. There is moderate stenosis of right lateral recess. IMPRESSION: 1. Severe lumbar spondylosis with interval improvement at L4-L5 status post posterior decompression. Reviewed, dictated and finalized at location E. IMPRESSION: 1. Severe lumbar spondylosis with interval improvement at L4-L5 status post pos terior decompression.
--- OUTSIDE RECORDS SUMMARY | 2025-04-09 15:33 | XMS_ITS | Encounter Summary ---
Author Organization [facility] Address [facility] [place] [address] Care Team Providers Care Refrigeration Specialist Name Role Phone None, Provider Primary Care Provider Janee ble Encounter Details Date Type Department Care Team (Late st Contact Info) Description 07/01/[address] [facility] Pre-Admission Testing [place] [id number] eSven Bello MD [address] [facility] [address] [facility] [place] [address] Social History Tobacco Use Types Packs/Day Years Used Date Smoking Tobacco: Never Smokeless Tobacco: Never Alcohol Use Standard Drinks/Week Comments Yes 3 (1 standard drink = 0.6 oz pur e alcohol) none in the last month Sex and Gender Information Value Date Recorded Sex Assigned at Not on file Legal Sex Male 4:55 PM RN CONCURRENT REVIEW Gender Identity Not on file Sexual Orientation Not on file COVID-19 Exposure Response Date Recorded In the last 10 days, have yo u been in contact with someone who was confirmed or suspected to have Coronavirus/COVID-19? No / Unsure 07/01/2022 2:22 PM RN CONCURRENT REVIEW documented as of this encounter Plan of Treatment Not on file documented as of this encounter Results * (ABNORMAL) COMPREHENSIVE METABOLIC PANEL (07/01/2022 2:26 PM RN CONCURRENT REVIEW) [facility] GLUCOSE 79 70 - 99 MG/DL 07/01/2022 3:[address] [facility] BUN 27(H) 7 - 18 MG/DL 07/01/2022 3:16 PM [facility] CREATININE S/P/B 1.28 0.7 - 1.3 MG/DL 07/01/2022 3:16 PM [facility] SODIUM S/P/B 142 136 - 145 MMOL/L 07/01/2022 3:16 PM [facility] POTASSIUM S/P/B 3.8 3.5 - 5.1 MMOL/L 07/01/2022 3:16 PM [facility] CHLORIDE S/P/B 108 100 - 108 MMOL/L 07/01/2022 3:16 PM [facility] CO2 30.6 21 - 32 MMOL/L 07/01/2022 3:16 PM [facility] CALCIUM S/P/B 9.6 8.5 - 10.1 MG/DL 07/01/2022 3:16 PM [facility] BILIRUBIN TOTAL S/P/B 0.3 0.2 - 1.2 MG/DL 07/01/2022 3:16 PM [facility] Comment: THIS ASSAY IS NOT RECOMMENDED FOR PATIENTS UNDERGOING TREATMENT WITH ELTROMBOPAG DUE TO THE POTENTIAL FOR FALSELY ELEVATED RESULTS. TOTAL PROTEIN S/P/B 7.8 6.4 - 8.2 G/DL 07/01/2022 3:16 PM [facility] ALBUMIN S/P/B 4.3 3.4 - 5.0 G/DL 07/01/2022 3:16 PM [facility] AST 24 15 - 37 U/L 07/01/2022 3:16 PM [facility] ALT 55 16 - 60 U/L 07/01/2022 3:16 PM [facility] ALKALINE PHOSPHATASE S/P/B 69 50 - 136 U/L 07/01/2022 3:16 PM [facility] ANION GAP 3.4(L) 5 - 15 MMOL/L 07/01/2022 3:[address] [facility] BUN CREATININE RATIO 21.1 6 - 26 07/01/2022 3:16 PM [facility] A/G RATIO 1.2 1.0 - 2.0 RATIO 07/01/2022 3:16 PM [facility] GFR ESTIMATE 68(L) >90 ML/MIN/1.7 3 M2 07/01/2022 3:[address] [facility] Comment: NOTE: eGFR is not calculated for patients <18 years of age. This is an estimated GFR calculation using the new CKD EPI creatinine equation without race and so does not require a correction factor for race. This estimated GFR should not be used for calculating drug doses. 07/01/2022 2:26 PM RN CONCURRENT REVIEW Seven Bello MD LABORATORY Final Res ult [facility] [address] [place] [address], [place] [phone] * CULTURE URINE (07/01/2022 2:26 PM RN CONCURRENT REVIEW) SPEC DESCRIPTION URINE CLEAN CATCH 07/01/2022 2:[address] [facility] SPECIAL REQUESTS NO SPECIAL REQUEST 07/01/2022 2:[address] [facility] CULTURE RESULT NO GROWTH 2 DAYS 07/03/2022 8:08 AM [address] CONCURRENT REVIEW [facility] URINE SPECIMEN OBTAINED BY CLEAN CATCH PROCEDURE / Unknown 07/01/2022 2:26 PM RN CONCURRENT REVIEW 07/01/2022 2:33 PM RN CONCURRENT REVIEW Seven Bello MD MICROBIOLOGY - GENERAL OR DERABLES Final Result [facility] [address] [place] [address], [place] [phone] * (ABNORMAL) URINALYSIS WI REFLEX TO CULTURE (07/01/2022 2:26 PM RN CONCURRENT REVIEW) SPECIMEN TYPE URINE CLEAN CATCH 07/01/2022 2:[address] [facility] COLOR (U) LIGHT YELLOW 07/01/2022 3:09 PM [facility] TRANSPARENCY CLEAR 07/01/2022 3:09 PM [facility] SPECIFIC GRAVITY (U) 1.028 1.001 - 1.030 07/01/2022 3:09 PM [facility] U PH 5.5 5.0 - 9.0 07/01/2022 3:09 PM [facility] LEUKOCYTES (U) NEGATIVE NEGATIVE 07/01/2022 3:09 PM [facility] NITRITES NEGATIVE NEGATIVE 07/01/2022 3:09 PM [facility] PROTEIN (U) NEGATIVE <30 MG/DL 07/01/2022 3:09 PM [facility] URINE GLUCOSE >1000(A) NORMAL MG/DL 07/01/2022 3:09 PM [facility] KETONES MG/DL (U) NEGATIVE NEGATIVE MG/DL 07/01/2022 3:09 PM [facility] UROBILINOGEN NORMAL NORMAL MG/DL 07/01/2022 3:09 PM [facility] BILIRUBIN (U) NEGATIVE NEGATIVE MG/DL 07/01/2022 3:09 PM [facility] BLOOD (U) NEGATIVE NEGATIVE 07/01/2022 3:09 PM [facility] CULTURE & SENSITIVITY INDICATED? CULTURE IS NOT INDICATED 07/01/2022 3:[address] [facility] WBC/HPF <1 <6 /HPF 07/01/2022 3:[address] [facility] RBC/HPF <1 <6 /HPF 07/01/2022 3:[address] [facility] URINE SPECIMEN OBTAINED BY CLEAN CATCH PROCEDURE / Unknown 07/01/2022 2:26 PM RN CONCURRENT REVIEW Seven Bello MD URINE ORDERABLES Final Re sult Performing Organization Address City/[facility]/ZIP Co de Phone Number [facility] [address] [place] [address], [place] [phone] * PROTIME/INR, VENOUS (07/01/2022 2:26 PM RN CONCURRENT REVIEW) PROTIME 11.2 10.2 - 12.9 SEC 07/01/2022 3:[address] [facility] INR 1.0 07/01/2022 3:[address] [facility] Comment: Recommended INR Therapeutic Goals: 2.0-3.0 Routine Therapy 2.5-3.5 Mechanical Prosthetic Valves (High Risk) 07/01/2022 2:26 PM RN CONCURRENT REVIEW Seven Bello MD LABORATORY Final Res ult [facility] [address] [place] [address], [place] [phone] * PTT, PARTIAL THROMBOPLASTIN TIME (07/01/2022 2:26 PM RN CONCURRENT REVIEW) PTT 29.8 25.1 - 36.5 SEC 07/01/2022 3:[address] [facility] 07/01/2022 2:26 PM RN CONCURRENT REVIEW us Seven Bello MD LABORATORY Final Res ult [facility] [address] [place] [address], [place] [phone] * (ABNORMAL) CBC W/DIFF AUTOMATED (07/01/2022 2:26 PM RN CONCURRENT REVIEW) Pathologist [facility] WBC 11.4(H) 4.5 - 11.0 x10'3/uL 07/01/2022 2:[address] [facility] RBC 4.95 4.70 - 6.10 x10'6/uL 07/01/2022 2:[address] [facility] HGB 15.3 14.0 - 18.0 G/DL 07/01/2022 2:[address] [facility] HCT 48.1 43.0 - 54.0 % 07/01/2022 2:[address] [facility] MCV 97.2(H) 80.0 - 94.0 FL 07/01/2022 2:[address] [facility] MCH 30.9 27.0 - 31.0 PG 07/01/2022 2:[address] [facility] MCHC 31.8(L) 32.0 - 36.0 G/DL 07/01/2022 2:[address] [facility] RDW 16.6(H) 11.5 - 14.5 % 07/01/2022 2:[address] [facility] PLT 306 130 - 400 x10'3/uL 07/01/2022 2:[address] [facility] MPV 8.9(L) 9.3 - 12.2 FL 07/01/2022 2:[address] [facility] DIFFERENTIAL TYPE AUTOMATED DIFFERENTIAL 07/01/2022 2:[address] [facility] NEUTROPHILS % 68.1 % 07/01/2022 2:[address] [facility] LYMPHOCYTES % 21.7 % 07/01/2022 2:[address] [facility] MONOCYTES % 8.2 % 07/01/2022 2:[address] [facility] EOSINOPHILS 0.5 % 07/01/2022 2:[address] [facility] BASOPHILS 0.6 % 07/01/2022 2:[address] [facility] IMMATURE GRANS % 0.9 % 07/01/20 2:[address] [facility] ABS. NEUTROPHILS TOTAL 7.76(H) 1.80 - 7.70 x10'3/uL 07/01/2022 2:[address] [facility] ABS. LYMPHOCYTES 2.47 1.00 - 4.80 x10'3/uL 07/01/2022 2:[address] [facility] ABS. MONOCYTES 0.94(H) 0.30 - 0.82 x10'3/uL 07/01/2022 2:[address] [facility] ABS. EOSINOPHILS 0.06 0.04 - 0.54 x10'3/uL 07/01/2022 2:[address] CONCURRENT RE[address] [facility] ABS. BASOPHILS 0.07 0.01 - 0.08 x10'3/uL 07/01/2022 2:[address] CON[address] [facility] ABS. IMMATURE GRANULOCYTES 0.10 0.00 - 0.49 x10'3/uL 07/01/2022 2:[address] [facility] 07/01/2022 2:26 PM RN CONCURRENT REVIEW us Seven Bello MD LABORATORY Final Res ult [facility] [address] [place] [address], [place] [phone] documented in this encounter Visit Diagnoses Diagnosis Elevated prostate specific antigen (PSA)- Primary Preop examination Preoperative examination, unspecified documented in this encounter Care Teams Refrigeration Specialist Relationship Specialty Start Date End Date None, Provider, PCP - General UNKNOWN PHYSICIAN SPECIALTY 07/01/22 documented as of this encounter
--- OUTSIDE RECORDS SUMMARY | 2025-04-09 15:33 | XMS_ITS | Clinical Summary ---
Author Organization [facility] [employer] Address [address] [place] [address] Care Team Providers Care Informatics Nurse Specialist Name Role Phone Jenni Tamayo MENTAL HEALTH CLINICIAN-POT PULLER Primary Care Provider [phone] Source Comments [facility] [employer],non-owned Affiliates and Associated Physician Practices is amultiple site organization consisting of ambulatory clinics and hospital sitesin [place], [place], [place] and [place]. This disclosure is being madepursuant to the Care Everywhere program and may not contain all information available regarding this patient. Last updated 18.[facility] [employer] Allergies No known active allergies Medications * [...] daily 3 Active B-D 3CC LUER-ANAND SYR 26JO2-6/2 21G X 1-1/2 3 ML MISC as [...] on file Legal Sex Male 7:29 PM CMS EXPERT Gender Identity Not on file Sexual Orientation Not on file Last Filed Vital Signs Vital Sign Reading Time Taken Comments Blood Pressure - - Pulse - - Temperature - - Respiratory Rate - - Oxygen Saturation - - Inhaled Oxygen Concentration - - Weight 179.2 kg (395 lb) 06/08/2023 10:29 AM CMS EXPERT Height 189 cm (6' 2.4) 06/08/2023 10:29 AM CMS EXPERT Body Mass Index 50.17 06/08/2023 10:29 AM CMS EXPERT Plan of Treatment Health Maintenance Due Date [...] 01/20/2022 ZOSTER VACCINE (1 of 2) 01/20/2022 SCREENING FOR DIABETES 05/04/2023 DEPRESSION SCREENING 07/19/2024 COVID-19 VACCINE (1 - 2023-2 5 season) 2025 INFLUENZA VACCINE (#1) 2025 3, 06/24/2021, 04/22/2020 COLOGUARD (AGES 45-75) - COL ON CA SCREENING 08/25/2025 08/25/2022 Colorectal Cancer Screening 08/25/2025 HIB VACCINE Aged Out No longer eligi ble based on patient's age to complete this topic HPV VACCINE Aged Out No longer eligi ble based on patient's age to complete this topic MENINGOCOCCAL (Group B) VACCINE SHARED DECISION-MAKING Aged Out No longer eligible based on patient's age to complete this topic MENINGOCOCCAL GROUPS A/C/Y/W VACCINE Aged Out No longer eligible b ased on patient's age to complete this topic Insurance Care Teams Informatics Nurse Specialist Relationship Specialty Start Date End Date Jenni Tamayo APRN-NAYAN [address] [facility] [address] [place] [address] PCP - General Nurse Practitioner Family 05/04/23
--- OUTSIDE RECORDS SUMMARY | 2025-04-09 15:33 | XMS_ITS | Patient Health Record ---
Author Organization [facility] [employer] Address [address] [place] [address] Care Team Providers Care Microsoft Solutions Architect Name Role Phone Sherman Leon Unavailable [phone] Allergies No Known Allergies Results Component Value Reference Range Notes UDT Reviewed date:10/24/2024 04:47:19 PM Interpretation: Performing Lab: Notes/Report: THC NEG 0 - 50 ng/ml Cocaine NEG 0 - 300 ng/ml Amphetamine NEG 0 - 1000 ng/ml Buprenorphine (BUP) NEG 0 - 10 ng/ml Secobarbital (Bar) NEG 0 - 300 ng/ml Oxazepam (BZO) NEG 0 - 300 ng/ml 8-qhjzgzyhfg-1,0-vgrgdjtu-7,3-diphenylpyrrolidine (JAYLYN P) NEG 0 - 300 ng/ml Methamphetamine (MET) NEG 0 - 1000 ng/ml Methylenedioxymethamphetamine (MDMA) NEG 0 - 500 ng/ml Morphine (MOP 300/YNU1215) NEG 0 - 300 ng/ml Methadone (MTD) [...] Vaccine Route Administration Date Status Comme nts Novel Hkcilrfcy-D2C1-93, preservative free Unknown 06/24/2021 Administered Influenza virus vaccine, quadrivalent (IIV4), split virus, 0.25 mL dosage Unknown 04/22/2020 Administered Social History Sex Assigned At : Social History Observation Description Sex Assigned At Male Social History Additional Details Category Social Info Options Details Migrated Social History Migrated Social History Alcohol Intake: None 08/04/2023,Tobacco Years: Never smoker 04/03/2019 Section Notes: 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 [employer] Problems Problem Type SNOMED Code ICD Code Onset Dates Problem Status W/U Status Risk Notes Problem Severe recurrent major depression without psychotic features (68976965) Major depressive disorder, recurrent severe without psychotic features (F33.2) 12/02/19 24 Active confirmed Problem Generalized anxiety disorder (64889306) Generalized anxiety disorder (F41.1) 12/02/19 24 Active confirmed Problem Obstructive sleep apnea syndrome (disorder) (33112779) Obstructive sleep apnea (adult) (pediatric) (G47.33) 12/02/19 24 Active confirmed Problem Essential hypertension (74576891) Essential (primary) hypertension (I10) 12/02/19 24 Active confirmed Problem Attention deficit hyperactivity disorder (015757394) ADHD (attention deficit hyperactivity disorder), combined type [...] N/A Encounters Encounter Location Date Provider Diagnosis [facility] [email or web address] [place] [address] [facility] [address] [address] 06/26/[address] [facility] [employer] [address] [address] 07/17/2024 Sherman Carolyn Generalized anxiety disorder F41.1 ; Major depressive disorder, recurrent severe without psychotic features F33.2 ; Essential (primary) hypertension I10 and Obstructive sleep apnea (adult) (pediatric) G47.33 [facility] [employer] [place] [address] [address] 10/12/2024 Sherman Carolyn Benign essential HTN I10 ; Encounter for screening for depression Z13.31 ; Generalized anxiety disorder F41.1 ; Major depressive disorder, recurrent severe without psychotic features F33.2 ; Essential (primary) hypertension I10 ; Obstructive sleep apnea (adult) (pediatric) G47.33 and Attention deficit hyperactivity disorder (ADHD), combined type F90.2 [facility] [email or web address] [address] [address] 10/23/2024 Sherman Carolyn Lack of concentratio n R41.840 [facility] [email or web address] [place] [address] [address] [facility] [address] [address] 11/23/2024 Sherman Carolyn Major depressive disorder, recurrent severe without psychotic features F33.2 ; Obstructive sleep apnea (adult) (pediatric) G47.33 ; ADHD (attention deficit hyperactivity disorder), combined type F90.2 ; Encounter for screening for cardiovascular disorders Z13.6 ; Dietary counseling and surveillance Z71.3 ; Benign essential HTN I10 and Encounter for screening for depression Z13.31 [facility] [email or web address] [place] [address] [address] 01/11/2025 Sherman Carolyn Major depressive disorder, recurrent [...] ensure accuracy, there may be errors, including diesel service apprentice inaccuracies and misspellings of medication names. This [...] Name:Sherman Leon , 04/12/2025 03:30:00 PM, [address], [place], [address], Insurance Providers Payer Name Payer Address Payer Phone Subscriber Number Group Number Insured Name Patient Relationship to Insured Coverage Start Date Coverage End Date [facility] [address] [place] [address] [id number] ROBBIE FRANCE Self - patient is the insured 4 [facility] [address] [address] [place] [address] [id number] ROBBIE FRANCE Self - patient is the [...]
--- OUTSIDE RECORDS SUMMARY | 2025-04-09 15:33 | XMS_ITS ---
Author Organization [facility] Address [address] [place] [address] Care Team Providers Care Ict Sales Representative Name Role Phone Rochelle Grayson MD Unavailable Clarice Gold NP Primary Care Provider [phone] Active Problems Problem Noted Date Diagnosed Date [...] weight loss without success. Plan: Refer to [facility] bariatric program Assessment & Plan (04/07/2019 5:02 [...] reflux. Have encouraged him to purchase intake [id number] Nexium. If his symptoms are not improved [...] (10/24/2016): Dyspnea on exertion Coronary arteriosclerosis in [place] artery 09/25 Overview (10/24/2016): Coronary arteriosclerosis in [place] artery Assessment & Plan (05/12/2024 2:44 PM [...]
--- OUTSIDE RECORDS SUMMARY | 2025-04-09 15:33 | XMS_ITS | Encounter Summary ---
Author Organization [facility] Address [address] [place] [address] Care Team Providers Care Disc Pad Knockout Worker Name Role Phone Clarice Gold SLITTER AND CUTTER OPERATOR Primary Care Provider [phone] Rochelle Grayson MD Unavailable Jenni Tamayo SLITTER AND CUTTER OPERATOR Primary Care Provider [phone] Clarice Gold SLITTER AND CUTTER OPERATOR Primary Care Provider [phone] Reason for Visit * Reason Onset Date Comments Pre Arrival 12/08/2021 Encounter Details Date Type Department Care Team (Late st Contact Info) Description 12/08/2021 Telephone [place] [id number] [address] Taylor Hairston RN Pre Arrival [...] on file Legal Sex Male 11:42 AM RESTORATIVE COORDINATOR Gender Identity Male 06/24/2020 11:12 AM RESTORATIVE COORDINATOR Sexual Orientation Straight 06/24/2020 11 :12 AM RESTORATIVE COORDINATOR documented as of this encounter Functional Status [...] Chronic Care Management No change(07/30 3:04 PM RESTORATIVE COORDINATOR) No Jane Seals RN Note: Problem: Chronic Pain Goals: 1. Minimize further functional decline 2. Maximize quality of life 3. Control pain Strategies: - Activity/exercise program recommendation - Conservative stepwise pain medicine strategy with multi-disciplinary approach - Recommend healthy lifestyle strategies and compensatory methods as needed documented as of this encounter Visit Diagnoses Not on filedocumented in this encounter Care Teams Disc Pad Knockout Worker Relationship Specialty Start Date End Date Clarice Gold NP [address] [place] [address] [place] [address] PCP - General Nurse Practitioner 11/18/20 01/04/23 Jenni Tamayo NP [address] [place] [address] [place] [address] PCP - General Nurse Practitioner 01/05/23 05/11/24 Clarice Gold NP [address] [place] [address] PCP - General Nurse Practitioner 05/12/24 Rochelle Grayson MD [facility] [place] [address] Consulting Physician Pain Management 04/24/22 documented as of this encounter
--- OUTSIDE RECORDS SUMMARY | 2025-04-09 15:33 | XMS_ITS | Clinical Summary ---
Author Organization [facility] Address [address] [place] [address] Care Team Providers Care Certified Dietary Manager Name Role Phone None, Provider MD Primary [...] on file Legal Sex Male 4:55 PM TANK STORAGE SUPERVISOR Gender Identity Not on file Sexual Orientation Not on file Last Filed Vital Signs Vital Sign Reading Time Taken Comments Blood Pressure 152/85 07/07/2022 10:17 AM TANK STORAGE SUPERVISOR Pulse 75 07/07/2022 10:17 AM TANK STORAGE SUPERVISOR Temperature 36.6 C (97.9 F) 07/07/2022 10:17 AM TANK STORAGE SUPERVISOR Respiratory Rate 16 07/07/2022 10:1 7 AM TANK STORAGE SUPERVISOR Oxygen Saturation 95% 07/07/2022 10: 17 AM TANK STORAGE SUPERVISOR Inhaled Oxygen Concentration - - Weight 210.2 kg (463 lb 6.5 oz) 07/07/2022 7:35 AM TANK STORAGE SUPERVISOR Height 188 cm (6' 2) 07/07/2022 7:35 AM TANK STORAGE SUPERVISOR Body Mass Index 59.5 07/07/2022 7:35 AM TANK STORAGE SUPERVISOR Plan of Treatment Health Maintenance Due Date [...] COVID-19 Vaccine (1 - 2023-2 5 season) 2025 Meningococcal B Vaccine Aged Out No l onger eligible based on patient's age to complete this topic Meningococcal Vaccine Aged Out No jake jeffrey eligible based on patient's age to complete this topic RSV Immunizations Under 20 Months Aged Out No longer eligible based on patient's age to complete this topic Medical Devices Implanted Type Area Director Of Business Systems Device Identifier Shelf Expiration Date Model / Serial / Lot Cardiac Stent [place] [address] [place] [address] Care Teams Certified Dietary Manager Relationship Specialty Start Date End Date None, Provider, PCP - General UNKNOWN PHYSICIAN SPECIALTY 07/01/22
--- OUTSIDE RECORDS SUMMARY | 2025-04-09 15:33 | XMS_ITS | Clinical Summary ---
Author Organization [facility] Address [address] [place] [address] Care Team Providers Care Medical Support Assistant Name Role Phone Rochelle Grayson MD Unavailable Clarice Gold NP Primary Care Provider [phone] Allergies No known active allergies Medications aspirin [...] predniSONE (DELTASONE) 5 mg tablet 04/13/2022 Active metoprolol XL (TOPROL-XL) 50 mg extended [...] EVERY DAY 90 tablet 3 10/18/2024 Active losartan (COZAAR) 100 mg tablet Take 1 tablet (100 mg total) by mouth daily 90 tablet 1 03/07/2025 Active Active Problems Problem Noted Date Diagnosed [...] weight loss without success. Plan: Refer to [facility]'s bariatric program Assessment & Plan [...] reflux. Have encouraged him to purchase intake [id number] Nexium. If his symptoms are not improved [...] (10/24/2016): Dyspnea on exertion Coronary arteriosclerosis in [place] artery 09/25 Overview (10/24/2016): Coronary arteriosclerosis in [place] artery Assessment & Plan (05/12/2024 2:44 PM [...] Type Department Care Team Description 03/12/2025 Telephone [facility] Cardiology [address] [facility] [address], [place] [address] Abelino Rodriguez MD Surgical Clearance [...] Domo Meinhardt Heart disease Brother 3 Chito Peter COPD Father Domoshayla Askewardt Cancer Father Domo Meinhardt Coronary artery disease Father Domo Askewardt Co ronary artery disease; Hearing loss Father Domo Meinhardt Heart disease Father Domo Meinhardt Coronary artery disease Mother Allie de la rosa Heart attack Mother Allie Green Heart disease [...] on file Legal Sex Male 11:42 AM JEWELRY COATER Gender Identity Male 06/24/2020 11:12 AM JEWELRY COATER Sexual Orientation Straight 06/24/2020 11 :12 AM JEWELRY COATER Obstetrics History Last Filed Vital Signs Vital Sign Reading Time Taken Comments Blood Pressure 128/84 05/12/2024 2:18 PM CDT Pulse 68 05/12/2024 2:18 PM CDT Temperature 36.1 C (97 F) 07/30/2023 3:03 PM JEWELRY COATER Respiratory Rate 16 07/30/2023 3:03 PM JEWELRY COATER Oxygen Saturation 98% 05/12/2024 2:18 PM CDT [...] Chronic Care Management No change(07/30 3:04 PM JEWELRY COATER) No Jane Seals, RN Note: Problem: Chronic Pain Goals: 1. Minimize further functional decline 2. Maximize quality of life 3. Control pain Strategies: - Activity/exercise program recommendation - Conservative stepwise pain medicine strategy with multi-disciplinary approach - Recommend healthy lifestyle strategies and compensatory methods as needed Medical Devices Implanted Type Area Embryology Professor Device Identifier Shelf Expiration Date Model / [...] Capillary blood 05/12/2024 2 :19 PM CDT Abelino Rodriguez MD POINT OF CARE TEST ORD ERABLES Edited Result - Final from Last 3 Months or Most Recently Relevant to Health Maintenance Insurance [employer]TakesAll OOS [employer]akes[employer] OOS [employer]akes[employer] OOS Care Teams Medical Support Assistant Relationship Specialty Start Date End Date Clarice Gold NP [address] [place] [id number] PCP - General Nurse Practitioner 05/12/24 Rochelle Grayson MD Consulting Physician Pain Management 04/24/22
--- OUTSIDE RECORDS SUMMARY | 2025-04-09 15:33 | XMS_ITS | Clinical Summary ---
Author Organization [employer] [facility] Address [address] [address] Care Team Providers Care Almond Paste Molder Name Role Phone Unavailable Primary Care Provider [...] on file Legal Sex Male 8:14 AM PAYROLL CONSULTANT Gender Identity Not on file Sexual Orientation [...] 06/24/2021, 2019 Medical Devices Implanted Type Area Government Documents Librarian Device Identifier Shelf Expiration Date Model / Serial / Lot Seamguard Endogia 60 Blk [id number] - [id number] Implanted:Qt y: 1 on 04/21/2023 by Matthew Coronel MD at [facility] Biological N/A: Stomach [employer] [id number] 12/23/2025 12BSGTRI 60B / / [id number] Seamguard Endogia 60 Prpl [id number] - [id number] Implanted:Qt y: 1 on 04/21/2023 by Matthew Coronel MD at [facility] Biological N/A: Stomach [employer] [id number] 12/21/2025 12BSGTRI 60P / / [id number] Seamguard Endogia 60 Prpl [id number] - [id number] Implanted:Qt y: 1 on 04/21/2023 by Matthew Coronel MD at [facility] Biological N/A: Stomach [employer] [id number] 12/21/2025 12BSGTRI 60P / / [id number] Seamguard Endogia 60 Prpl [id number] - [id number] Implanted:Qt y: 1 on 04/21/2023 by Matthew Coronel MD at [facility] Biological N/A: Stomach [employer] [id number] 12/21/2025 12BSGTRI 60P / / [id number] Seamguard Endogia 60 Prpl [id number] - [id number] Implanted:Qt y: 1 on 04/21/2023 by Matthew Coronel MD at [facility] Biological N/A: Stomach [employer] [id number] 12/08/2025 12BSGTRI 60P / / [id number] Cfd Engineer Ligamax Endo Multi Clip 5mm El5ml - [id number] Implanted:Qt y: 1 on 04/21/2023 by Matthew Coronel MD at [facility] Clip N/A: Stomach [employer] [id number] 01/16/2028 EL5ML / / [id number] Dental Implants Cardiac Stent Insurance RX [employer] Commercial RX POSADA PLANS (INTERNAL) [facility] Internal Plans Advance Directives For more information, please contact: [phone] * Full Code (Latest Code Status on File) Date Activated Date Inactivated Comments 04/21/2023 8:28 AM 04/22/2023 5:41 PM * Full Code Date Activated Date Inactivated Comments 04/21/2023 6:11 AM 04/21/2023 8:28 AM
== END 2025-04-09 15:27 | disposition home or self-care (01) ==
PROVIDERS: PCP Nurse Practitioner Adult Health; Visit Provider Neurological Surgery
DX: M48.062 Spinal stenosis, lumbar region with neurogenic claudication (principal); M47.896 Other spondylosis, lumbar region
CPT/HCPCS: 72148

== ENCOUNTER 2025-05-14 08:11 | Day surgery (SDC) | payer OTHER, SELFPAY ==
--- NOTE | ~2025-05-14 | XR_ITS ---
EXAMINATION: XR fluoroscopy no charge DATE: 05/14/2025 10:34 INDICATION: Bilateral L3-L4 transforaminal epidural steroid injections. TECHNIQUE: 90 fluoroscopic images of the upper lumbar spine were obtained during procedure performed by Dr. Holly. Radiologist was not present for the imaging or procedure. The amount of fluoroscopy time used during this procedure was 0.9 minutes. Total radiation dosage of 40.08 mGy. COMPARISON: 04/07/2024 FINDINGS: Images demonstrate needles advanced with distal tips projecting over the posterior superolateral aspect of the bilateral L2-L3 neural foramina. Subsequent images during contrast injection images contrast extending from the needle tips with perineural spread at the bilateral neural foramina with no evid ent intravascular or intrathecal contrast. IMPRESSION: 1. Fluoroscopy utilized during bilateral L2-L3 epidural injections. See procedure note for further detail. Reviewed, dictated and finalized at location A. IMPRESSION: 1. Fluoroscopy utilized during bilateral L2-L3 epidural injections. See procedu re note for further detail.
--- OUTSIDE RECORDS SUMMARY | 2025-05-14 08:28 | XMS_ITS | Clinical Summary ---
Author Organization [facility] Address [address] [place] [address] Care Team Providers Care Piece Worker Name Role Phone Jenni Tamayo AUTOMOBILE OR TRUCK RENTAL DISPATCHER-STORY TELLER Primary Care Provider [phone] Source Comments [facility],non-owned Affiliates and Associated Physician Practices is amultiple site organization consisting of ambulatory clinics and hospital sitesin [place], [place] and [place]. This disclosure is being madepursuant to the Care Everywhere program and may not contain all information available regarding this patient. Last updated 18.[facility] Allergies No known active allergies Medications * [...] daily 3 Active B-D 3CC LUER-ANAND SYR 16QA6-9/2 21G X 1-1/2 3 ML MISC as [...] on file Legal Sex Male 7:29 PM TELEPHONE CLAIMS REPRESENTATIVE Gender Identity Not on file Sexual Orientation Not on file Last Filed Vital Signs Vital Sign Reading Time Taken Comments Blood Pressure - - Pulse - - Temperature - - Respiratory Rate - - Oxygen Saturation - - Inhaled Oxygen Concentration - - Weight 179.2 kg (395 lb) 06/08/2023 10:29 AM TELEPHONE CLAIMS REPRESENTATIVE Height 189 cm (6' 2.4) 06/08/2023 10:29 AM TELEPHONE CLAIMS REPRESENTATIVE Body Mass Index 50.17 06/08/2023 10:29 AM TELEPHONE CLAIMS REPRESENTATIVE Plan of Treatment Health Maintenance Due Date Last Done Comments COLON MONITORING 1970 COLONOSCOPY - COLON CA SCREENING 1970 CT COLONOGRAPHY - COLON CA SCREENING 1970 FIT - COLON CA SCREENING 1970 FLEX SIG - COLON CA SCREENING 1970 COVID-19 VACCINE (#1) 01/20/1977 HIV SCREENING 01/20/1987 HEPATITIS C SCREENING 01/16/1990 DTAP/TDAP/TD VACCINES (1 - Tdap) 01/20/1991 HEPATITIS B VACCINE (1 of 3 - 19+ 3-dose series) 01/20/1991 PNEUMOCOCCAL VACCINE 50+ (1 of 1 - PCV) 01/20/2022 ZOSTER VACCINE (1 of 2) 01/20/2022 SCREENING FOR DIABETES 05/04/2023 DEPRESSION SCREENING 07/19/2024 INFLUENZA VACCINE (#1) 2025 [...] patient's age to complete this topic Insurance CAROL ANN Care Teams Piece Worker Relationship Specialty Start Date End Date Jenni Tamayo APRN-CNP [address] [facility] [address] [place] [address] PCP - General Nurse Practitioner Family 05/04/23
--- OUTSIDE RECORDS SUMMARY | 2025-05-14 08:28 | XMS_ITS | Clinical Summary ---
Author Organization [employer] [facility] Address [address] [address] Care Team Providers Care Supervisor Laundry Name Role Phone Unavailable Primary Care Provider [...] on file Legal Sex Male 8:14 AM VASCULAR TECHNOLOGIST Gender Identity Not on file Sexual Orientation [...] 06/24/2021, 2019 Medical Devices Implanted Type Area Procedure Rn Device Identifier Shelf Expiration Date Model / Serial / Lot Seamguard Endogia 60 Blk [id number] - [id number] Implanted:Qt y: 1 on 04/21/2023 by Matthew Coronel MD at [facility] Biological N/A: Stomach [employer] [id number] 12/23/2025 12BSGTRI 60B / / [id number] Seamguard Endogia 60 Prpl [id number] - [id number] Implanted:Qt y: 1 on 04/21/2023 by Matthew Coronel MD at [facility] Biological N/A: Stomach [employer] [id number] 12/21/2025 12BSGTRI 60P / / [id number] Seamguard Endogia 60 Prpl [id number] - [id number] Implanted:Qt y: 1 on 04/21/2023 by Matthew Coronel MD at [facility] Biological N/A: Stomach [employer] [id number] 12/21/2025 12BSGTRI 60P / / [id number] Seamguard Endogia 60 Prpl [id number] - [id number] Implanted:Qt y: 1 on 04/21/2023 by Matthew Coronel MD at [facility] Biological N/A: Stomach [employer] [id number] 12/21/2025 12BSGTRI 60P / / [id number] Seamguard Endogia 60 Prpl [id number] - [id number] Implanted:Qt y: 1 on 04/21/2023 by Matthew Coronel MD at [facility] Biological N/A: Stomach [employer] [id number] 12/08/2025 12BSGTRI 60P / / [id number] Mangle Catcher Ligamax Endo Multi Clip 5mm El5ml - [id number] Implanted:Qt y: 1 on 04/21/2023 by Matthew Coronel MD at [facility] Clip N/A: Stomach [employer] [id number] 01/16/2028 EL5ML / / [id number] Dental Implants Cardiac Stent Insurance RX [employer] Commercial RX [employer]ADA PLANS (INTERNAL) [facility] Internal Plans Advance Directives For more information, please contact: [phone] * Full Code (Latest Code Status on File) Date Activated Date Inactivated Comments 04/21/2023 8:28 AM 04/22/2023 5:41 PM * Full Code Date Activated Date Inactivated Comments 04/21/2023 6:11 AM 04/21/2023 8:28 AM
--- OUTSIDE RECORDS SUMMARY | 2025-05-14 08:28 | XMS_ITS | Encounter Summary ---
Author Organization [facility] Address [facility] [place] [address] Care Team Providers Care In Home Sales Representative Name Role Phone None, Provider Primary Care Provider Janee ble Encounter Details Date Type Department Care Team (Late st Contact Info) Description 07/01/2022 Prep for Procedure [facility] Pre-Admission Testing [place] [id number] Seven Bello MD [address] [facility] [address] [facility] [place] [address] Social History Tobacco Use Types Packs/Day Years Used Date Smoking Tobacco: Never Smokeless Tobacco: Never Alcohol Use Standard Drinks/Week Comments Yes 3 (1 standard drink = 0.6 oz pur e alcohol) none in the last month Sex and Gender Information Value Date Recorded Sex Assigned at Not on file Legal Sex Male 4:55 PM BUNG DRIVER Gender Identity Not on file Sexual Orientation Not on file COVID-19 Exposure Response Date Recorded In the last 10 days, have yo u been in contact with someone who was confirmed or suspected to have Coronavirus/COVID-19? No / Unsure 07/01/2022 2:22 PM BUNG DRIVER documented as of this encounter Plan of Treatment Not on file documented as of this encounter Results * (ABNORMAL) COMPREHENSIVE METABOLIC PANEL (07/01/2022 2:26 PM BUNG DRIVER) [facility] GLUCOSE 79 70 - 99 MG/DL 07/01/2022 3:16 PM BUNG DRIVER [facility] BUN 27(H) 7 - 18 MG/DL 07/01/2022 3:[address] [facility] CREATININE S/P/B 1.28 0.7 - 1.3 MG/DL 07/01/2022 3:[address] [facility] SODIUM S/P/B 142 136 - 145 MMOL/L 07/01/2022 3:[address] [facility] POTASSIUM S/P/B 3.8 3.5 - 5.1 MMOL/L 07/01/2022 3:[address] [facility] CHLORIDE S/P/B 108 100 - 108 MMOL/L 07/01/2022 3:[address] [facility] CO2 30.6 21 - 32 MMOL/L 07/01/2022 3:[address] [facility] CALCIUM S/P/B 9.6 8.5 - 10.1 MG/DL 07/01/2022 3:[address] [facility] BILIRUBIN TOTAL S/P/B 0.3 0.2 - 1.2 MG/DL 07/01/2022 3:[address] [facility] Comment: THIS ASSAY IS NOT RECOMMENDED FOR PATIENTS UNDERGOING TREATMENT WITH ELTROMBOPAG DUE TO THE POTENTIAL FOR FALSELY ELEVATED RESULTS. TOTAL PROTEIN S/P/B 7.8 6.4 - 8.2 G/DL 07/01/2022 3:[address] [facility] ALBUMIN S/P/B 4.3 3.4 - 5.0 G/DL 07/01/2022 3:[address] [facility] AST 24 15 - 37 U/L 07/01/2022 3:[address] [facility] ALT 55 16 - 60 U/L 07/01/2022 3:[address] [facility] ALKALINE PHOSPHATASE S/P/B 69 50 - 136 U/L 07/01/2022 3:[address] [facility] ANION GAP 3.4(L) 5 - 15 MMOL/L 07/01/2022 3:16 PM BUNG DRIVER [facility] BUN CREATININE RATIO 21.1 6 - 26 07/01/2022 3:[address] [facility] A/G RATIO 1.2 1.0 - 2.0 RATIO 07/01/2022 3:[address] [facility] GFR ESTIMATE 68(L) >90 ML/MIN/1.7 3 M2 07/01/2022 3:16 PM BUNG DRIVER [facility] Comment: NOTE: eGFR is not calculated for patients <18 years of age. This is an estimated GFR calculation using the new CKD EPI creatinine equation without race and so does not require a correction factor for race. This estimated GFR should not be used for calculating drug doses. 07/01/2022 2:26 PM BUNG DRIVER Seven Bello MD LABORATORY Final Res ult [facility] [address] [place] [address], [place] [phone] * CULTURE URINE (07/01/2022 2:26 PM BUNG DRIVER) SPEC DESCRIPTION URINE CLEAN CATCH 07/01/2022 2:26 PM BUNG DRIVER [facility] SPECIAL REQUESTS NO SPECIAL REQUEST 07/01/2022 2:26 PM BUNG DRIVER [facility] CULTURE RESULT NO GROWTH 2 DAYS 07/03/2022 8:08 AM BUNG DRIVER [facility] URINE SPECIMEN OBTAINED BY CLEAN CATCH PROCEDURE / Unknown 07/01/2022 2:26 PM BUNG DRIVER 07/01/2022 2:33 PM BUNG DRIVER Seven Bello MD MICROBIOLOGY - GENERAL OR DERABLES Final Result [facility] [address] [place] [address], [place] [phone] * (ABNORMAL) URINALYSIS WI REFLEX TO CULTURE (07/01/2022 2:26 PM BUNG DRIVER) SPECIMEN TYPE URINE CLEAN CATCH 07/01/2022 2:26 PM BUNG DRIVER [facility] COLOR (U) LIGHT YELLOW 07/01/2022 3:[address] [facility] TRANSPARENCY CLEAR 07/01/2022 3:[address] [facility] SPECIFIC GRAVITY (U) 1.028 1.001 - 1.030 07/01/2022 3:[address] [facility] U PH 5.5 5.0 - 9.0 07/01/2022 3:[address] [facility] LEUKOCYTES (U) NEGATIVE NEGATIVE 07/01/2022 3:[address] [facility] NITRITES NEGATIVE NEGATIVE 07/01/2022 3:[address] [facility] PROTEIN (U) NEGATIVE <30 MG/DL 07/01/2022 3:[address] [facility] URINE GLUCOSE >1000(A) NORMAL MG/DL 07/01/2022 3:[address] [facility] KETONES MG/DL (U) NEGATIVE NEGATIVE MG/DL 07/01/2022 3:[address] [facility] UROBILINOGEN NORMAL NORMAL MG/DL 07/01/2022 3:[address] [facility] BILIRUBIN (U) NEGATIVE NEGATIVE MG/DL 07/01/2022 3:[address] [facility] BLOOD (U) NEGATIVE NEGATIVE 07/01/2022 3:[address] [facility] CULTURE & SENSITIVITY INDICATED? CULTURE IS NOT INDICATED 07/01/2022 3:09 PM BUNG DRIVER [facility] WBC/HPF <1 <6 /HPF 07/01/2022 3:09 PM BUNG DRIVER [facility] RBC/HPF <1 <6 /HPF 07/01/2022 3:09 PM BUNG DRIVER [facility] URINE SPECIMEN OBTAINED BY CLEAN CATCH PROCEDURE / Unknown 07/01/2022 2:26 PM BUNG DRIVER Seven Bello MD URINE ORDERABLES Final Re sult Performing Organization Address City/[facility]/ZIP Co de Phone Number [facility] [address] [place] [address], [place] [phone] * PROTIME/INR, VENOUS (07/01/2022 2:26 PM BUNG DRIVER) PROTIME 11.2 10.2 - 12.9 SEC 07/01/2022 3:19 PM BUNG DRIVER [facility] INR 1.0 07/01/2022 3:19 PM BUNG DRIVER [facility] Comment: Recommended INR Therapeutic Goals: 2.0-3.0 Routine Therapy 2.5-3.5 Mechanical Prosthetic Valves (High Risk) 07/01/2022 2:26 PM BUNG DRIVER Seven Bello MD LABORATORY Final Res ult [facility] [address] [place] [address], [place] [phone] * PTT, PARTIAL THROMBOPLASTIN TIME (07/01/2022 2:26 PM BUNG DRIVER) PTT 29.8 25.1 - 36.5 SEC 07/01/2022 3:19 PM BUNG DRIVER [facility] 07/01/2022 2:26 PM BUNG DRIVER us Seven Bello MD LABORATORY Final Res ult [facility] [address] [place] [address], [place] [phone] * (ABNORMAL) CBC W/DIFF AUTOMATED (07/01/2022 2:26 PM BUNG DRIVER) Pathologist [facility] WBC 11.4(H) 4.5 - 11.0 x10'3/uL 07/01/2022 2:53 PM BUNG DRIVER [facility] RBC 4.95 4.70 - 6.10 x10'6/uL 07/01/2022 2:53 PM BUNG DRIVER [facility] HGB 15.3 14.0 - 18.0 G/DL 07/01/2022 2:53 PM BUNG DRIVER [facility] HCT 48.1 43.0 - 54.0 % 07/01/2022 2:53 PM BUNG DRIVER [facility] MCV 97.2(H) 80.0 - 94.0 FL 07/01/2022 2:53 PM BUNG DRIVER [facility] MCH 30.9 27.0 - 31.0 PG 07/01/2022 2:53 PM BUNG DRIVER [facility] MCHC 31.8(L) 32.0 - 36.0 G/DL 07/01/2022 2:53 PM BUNG DRIVER [facility] RDW 16.6(H) 11.5 - 14.5 % 07/01/2022 2:53 PM BUNG DRIVER [facility] PLT 306 130 - 400 x10'3/uL 07/01/2022 2:53 PM BUNG DRIVER [facility] MPV 8.9(L) 9.3 - 12.2 FL 07/01/2022 2:53 PM BUNG DRIVER [facility] DIFFERENTIAL TYPE AUTOMATED DIFFERENTIAL 07/01/2022 2:53 PM BUNG DRIVER [facility] NEUTROPHILS % 68.1 % 07/01/2022 2:53 PM BUNG DRIVER [facility] LYMPHOCYTES % 21.7 % 07/01/2022 2:53 PM BUNG DRIVER [facility] MONOCYTES % 8.2 % 07/01/2022 2:53 PM BUNG DRIVER [facility] EOSINOPHILS 0.5 % 07/01/2022 2:53 PM BUNG DRIVER [facility] BASOPHILS 0.6 % 07/01/2022 2:53 PM BUNG DRIVER [facility] IMMATURE GRANS % 0.9 % 07/01/20 2:53 PM BUNG DRIVER [facility] ABS. NEUTROPHILS TOTAL 7.76(H) 1.80 - 7.70 x10'3/uL 07/01/2022 2:53 PM BUNG DRIVER [facility] ABS. LYMPHOCYTES 2.47 1.00 - 4.80 x10'3/uL 07/01/2022 2:53 PM BUNG DRIVER [facility] ABS. MONOCYTES 0.94(H) 0.30 - 0.82 x10'3/uL 07/01/2022 2:53 PM BUNG DRIVER [facility] ABS. EOSINOPHILS 0.06 0.04 - 0.54 x10'3/uL 07/01/2022 2:53 PM BUNG DRIVER [facility] ABS. BASOPHILS 0.07 0.01 - 0.08 x10'3/uL 07/01/2022 2:53 PM BUNG DRIVER [facility] ABS. IMMATURE GRANULOCYTES 0.10 0.00 - 0.49 x10'3/uL 07/01/2022 2:53 PM BUNG DRIVER [facility] 07/01/2022 2:26 PM BUNG DRIVER us Seven Bello MD LABORATORY Final Res ult [facility] [address] [place] [address], [place] [phone] documented in this encounter Visit Diagnoses Diagnosis Elevated prostate specific antigen (PSA)- Primary Preop examination Preoperative examination, unspecified documented in this encounter Care Teams In Home Sales Representative Relationship Specialty Start Date End Date None, Provider, PCP - General UNKNOWN PHYSICIAN SPECIALTY 07/01/22 documented as of this encounter
--- OUTSIDE RECORDS SUMMARY | 2025-05-14 08:28 | XMS_ITS | Clinical Summary ---
Author Organization [facility] Address [address] [place] [address] Care Team Providers Care Manager Safe Name Role Phone None, Provider MD Primary [...] on file Legal Sex Male 4:55 PM ADMINISTRATIVE SERVICES MANAGER Gender Identity Not on file Sexual Orientation Not on file Last Filed Vital Signs Vital Sign Reading Time Taken Comments Blood Pressure 152/85 07/07/2022 10:17 AM ADMINISTRATIVE SERVICES MANAGER Pulse 75 07/07/2022 10:17 AM ADMINISTRATIVE SERVICES MANAGER Temperature 36.6 C (97.9 F) 07/07/2022 10:17 AM ADMINISTRATIVE SERVICES MANAGER Respiratory Rate 16 07/07/2022 10:1 7 AM ADMINISTRATIVE SERVICES MANAGER Oxygen Saturation 95% 07/07/2022 10: 17 AM ADMINISTRATIVE SERVICES MANAGER Inhaled Oxygen Concentration - - Weight 210.2 kg (463 lb 6.5 oz) 07/07/2022 7:35 AM ADMINISTRATIVE SERVICES MANAGER Height 188 cm (6' 2) 07/07/2022 7:35 AM ADMINISTRATIVE SERVICES MANAGER Body Mass Index 59.5 07/07/2022 7:35 AM ADMINISTRATIVE SERVICES MANAGER Plan of Treatment Health Maintenance Due Date Last Done Comments Colorectal Cancer Screening Colonoscopy (10 Years) 1972 Annual Physical 01/20/1975 COVID-19 Vaccine (#1) 01/20/1977 Hepatitis C 01/20/1990 DTaP, Tdap and Td Vaccines ( 1 - Tdap) 01/20/1991 Hepatitis B Vaccines (1 of 3 - 19+ 3-dose series) 01/20/1991 Pneumococcal Vaccine: 50+ Years (1 of 1 - PCV) 01/20/2022 Zoster Vaccines (1 of 2) 01/20/2022 Influenza Adult (#1) 2025 06/24/2021, 04/22/2020 Hepatitis A Vaccines Aged Out No long er eligible based on patient's age to complete this topic Meningococcal B Vaccine Aged Out No l onger eligible based on patient's age to complete this topic Meningococcal Vaccine Aged Out No jake jeffrey eligible based on patient's age to complete this topic RSV Immunizations Under 20 Months Aged Out No longer eligible b ased on patient's age to complete this topic Medical Devices Implanted Type Area Community Outreach Manager Device Identifier Shelf Expiration Date Model / Serial / Lot Cardiac Stent Insurance Care Teams Manager Safe Relationship Specialty Start Date End Date None, Provider, PCP - General UNKNOWN PHYSICIAN SPECIALTY 07/01/22
--- OUTSIDE RECORDS SUMMARY | 2025-05-14 08:29 | XMS_ITS | Clinical Summary ---
Author Organization [facility] Address [address] [place] [address] Care Team Providers Care Cigarette Making Examiner Name Role Phone Rochelle Grayson MD Unavailable Clarice oGld NP Primary Care Provider [phone] Allergies No known active allergies Medications aspirin [...] weight loss without success. Plan: Refer to [facility] bariatric program Assessment & Plan (04/07/2019 5:02 [...] reflux. Have encouraged him to purchase intake [id number] Nexium. If his symptoms are not improved [...] (10/24/2016): Dyspnea on exertion Coronary arteriosclerosis in [place] artery 09/25 Overview (10/24/2016): Coronary arteriosclerosis in [place] artery Assessment & Plan (05/12/2024 2:44 PM [...] Type Department Care Team Description 03/12/2025 Telephone [facility] Cardiology [address] [facility] [address], [place] [address] Abelino Rodriguez MD Surgical Clearance [...] on file Legal Sex Male 11:42 AM DROP CREW LABORER Gender Identity Male 06/24/2020 11:12 AM DROP CREW LABORER Sexual Orientation Straight 06/24/2020 11 :12 AM DROP CREW LABORER Obstetrics History Last Filed Vital Signs Vital Sign Reading Time Taken Comments Blood Pressure 128/84 05/12/2024 2:18 PM CDT Pulse 68 05/12/2024 2:18 PM CDT Temperature 36.1 C (97 F) 07/30/2023 3:03 PM DROP CREW LABORER Respiratory Rate 16 07/30/2023 3:03 PM DROP CREW LABORER Oxygen Saturation 98% 05/12/2024 2:18 PM CDT [...] Chronic Care Management No change(07/30 3:04 PM DROP CREW LABORER) No Jane Seals, RN Note: Problem: Chronic Pain Goals: 1. Minimize further functional decline 2. Maximize quality of life 3. Control pain Strategies: - Activity/exercise program recommendation - Conservative stepwise pain medicine strategy with multi-disciplinary approach - Recommend healthy lifestyle strategies and compensatory methods as needed Medical Devices Implanted Type Area Animal Services Officer Device Identifier Shelf Expiration Date Model / [...] Most Recently Relevant to Health Maintenance Insurance [employer] ([employer] OOS [employer] OOS [employer]) OOS Care Teams Cigarette Making Examiner Relationship Specialty Start Date End Date Clarice Gold NP [address] [place] [address] PCP - General Nurse Practitioner 05/12/24 Rochelle Grayson MD Consulting Physician Pain Management 04/24/22
--- OUTSIDE RECORDS SUMMARY | 2025-05-14 08:29 | XMS_ITS | Encounter Summary ---
Author Organization [facility] Address [address] [place] [address] Care Team Providers Care Glue Cook Name Role Phone Clarice Gold AERIAL PLANTING AND CULTIVATION MANAGER Primary Care Provider [phone] Rochelle Grayson MD Unavailable Jenni Tamayo AERIAL PLANTING AND CULTIVATION MANAGER Primary Care Provider [phone] Clarice Gold AERIAL PLANTING AND CULTIVATION MANAGER Primary Care Provider [phone] Reason for Visit * Reason Onset Date Comments Pre Arrival 12/08/2021 Encounter Details Date Type Department Care Team (Late st Contact Info) Description 12/08/2021 Telephone [place] [id number] [address] [address] Taylor Hairston RN Pre Arrival [...] on file Legal Sex Male 11:42 AM SKIN THERAPIST Gender Identity Male 06/24/2020 11:12 AM SKIN THERAPIST Sexual Orientation Straight 06/24/2020 11 :12 AM SKIN THERAPIST documented as of this encounter Functional Status [...] Chronic Care Management No change(07/30 3:04 PM SKIN THERAPIST) No Jane Seals RN Note: Problem: Chronic Pain Goals: 1. Minimize further functional decline 2. Maximize quality of life 3. Control pain Strategies: - Activity/exercise program recommendation - Conservative stepwise pain medicine strategy with multi-disciplinary approach - Recommend healthy lifestyle strategies and compensatory methods as needed documented as of this encounter Visit Diagnoses Not on filedocumented in this encounter Care Teams Glue Cook Relationship Specialty Start Date End Date Clarice Gold NP [address] [place] [address] [place] [address] PCP - General Nurse Practitioner 11/18/20 01/04/23 Jenni Tamayo NP [address] [place] [address] [place] [address] PCP - General Nurse Practitioner 01/05/23 05/11/24 Clarice Gold NP [address] [place] [address] PCP - General Nurse Practitioner 05/12/24 Rochelle Grayson MD [facility] [place] [address] Consulting Physician Pain Management 04/24/22 documented as of this encounter
--- OUTSIDE RECORDS SUMMARY | 2025-05-14 08:29 | XMS_ITS ---
Author Organization [facility] Address [address] [place] [address] Care Team Providers Care Spragger Name Role Phone Rochelle Grayson MD Unavailable Clarice Gold NP Primary Care Provider [phone] Active Problems Problem Noted Date Diagnosed Date [...] weight loss without success. Plan: Refer to [facility] bariatric program Assessment & Plan (04/07/2019 5:02 [...] reflux. Have encouraged him to purchase intake [id number] Nexium. If his symptoms are not improved [...] (10/24/2016): Dyspnea on exertion Coronary arteriosclerosis in [place] artery 09/25 Overview (10/24/2016): Coronary arteriosclerosis in [place] artery Assessment & Plan (05/12/2024 2:44 PM [...]
--- OUTSIDE RECORDS SUMMARY | 2025-05-14 08:30 | XMS_ITS | Data Portability ---
Author Organization [place] [facility], Main Office Address [address] [place] [address] Care Team Providers Care Purchasing Officer Name Role Phone JENNI TAMAYO Primary Care Provider JENNI TAMAYO Referring Provider [phone] Assessment Encounter Date Assessment Date Assessment LastModified by Organization Details LastModified Time 11/11/2022 11/11/2022 Cscope- 09/2022- Delgado- repeat - 09/2032 PSA- managed by urology Call office if worse, ER if life-threatening illness RTC in 4 months He voices understanding of plan and agrees [email or web address] Not available 11/11/2022 16:32:43 03/17/2023 03/17/2023 Cscope- 09/2022- Delgado- repeat 09/2032 PSA- managed by urology Call office if worse, ER if life-threatening illness RTC in 4 months He voices understanding of plan and agrees Not available 03/17/2023 16:09:06 05/05/2023 05/05/2023 Cscope- 09/2022- Delgado- repeat 09/2032 PSA- managed by urology Call office if worse, ER if life-threatening illness RTC in 4 months He voices understanding of plan and agrees [email or web address] Not available 05/05/2023 10:58:31 05/06/2023 05/06/2023 Impression: [...] be appropriate. He sees Dr. Wright his director of vendor management for psoriatic arthritis. Takes methotrexate. He showed [...] right arm. 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 [email or web address] Not available 05/06/2023 10:33:24 07/26/2023 07/26/2023 Cscope- 09/2022- Delgado- repeat 10 years- 09/2032 PSA- managed by urology Call office if worse, ER if life-threatening illness he plans transfer to [facility] [place] He voices understanding of plan and agrees [email or web address] Not available 07/26/2023 17:03:05 Plan of Treatment Reminders Order Date Submit Date Provider Last Modified By Organization Details Last Modified Time Details Appointments None recorded. Lab PSA, total + free, serum or plasma 2022 023 [facility] (Lab), [address] [place] [address] [address], [place], [address], 3 05:32:12 CMP, serum or plasma 2022 023 [facility] (Lab), [address] [place] [address] [address], [place], [address], 3 13:41:38 CBC w/ auto diff [address] (Lab), [address] [place] [address] [address], [place], [address], 4 15:11:35 HbA1c (hemoglobin A1c), blood 2022 023 [facility] (Lab), [address] [place] [address] [address], [place], [address], 3 17:45:05 microalbumi n/creatinin e, mass ratio, urine [address] (Lab), [address] [place] [address] [address], [place], [address], 4 15:11:35 lipid panel, serum 2022 023 [facility] (Lab), [address] [place] [address] [address], [place], [address], 3 13:43:16 TSH, serum, reflex free T4 2022 023 [facility] (Lab), [address] [place] [address] [address], [place], [address], 3 13:44:44 Referral pain management referral 2022 023 [email or web address] Grayson MD, [address], [place], [address], 4 16:35:10 Procedures injection/a spiration joint/bursa (PROC) - in office procedure, administere d by provider 2022 023 [email or web address] In-Office Order, Internal Use Only DO Not Attach Compendium DO Not Attach Compendium, Do Not Delete/merge, [address] 3 10:18:09 Surgeries None recorded. Imaging XR, knee 2022 023 [email or web address] [facility], [address], [address], [place], [address], 3 15:23:43 US, duplex, venous, extremity, complete - w/ standing reflux study please- bilateral LE 2022 023 [facility], [address], [address], [place], [address], 3 15:53:40 US, duplex, arterial, lower extremity, complete - bilateral LE 2022 023 [email or web address] [facility], [address], [address], [place], [address], 4 11:17:25 Medication Orders metformin ER 500 mg tablet,exte nded release 24 hr 2023 024 [facility] [address] [facility], [address] [place], [address], 4 16:29:04 losartan 100 mg tablet 2023 024 [facility] [address] [facility], [address] [place], [address], 4 16:29:05 Kenalog 10 mg/mL suspension for injection 2022 023 [email or web address] [facility] [address] [facility], [address] [place] [address], [address], 3 15:23:43 ropivacaine (PF) 5 mg/mL (0.5 %) injection solution 2022 023 [email or web address] [facility] [address], [address], 3 15:23:43 losartan 100 mg tablet 2022 023 [facility] [address] [facility], [address] [place] [address], [address], 3 10:59:54 metformin ER 500 mg tablet,exte nded release 24 hr 2022 023 [facility] [address], [address], 3 16:29:09 Patient TargetsNo targets recorded. Patient InstructionsNo instructions recorded. Reason for Referral Pain Management Referral for Lumbar radiculopathy Referring Physician: Jenni Tamayo, Internal Medicine, Encounter Date: 05/05/2023 Results Created Date Observation Date Name Description Value Unit Range Abnormal Flag Note LastModifiedBy Organization Detail LastModifiedTime 03/27/2003/26/2023 US, shonda x, beverly s, extre mity, compl ete No observ ation record ed. [email or web address] [facility] [address], [place], [address], 03/30/2023 15:43:37 05/06/20 23 XR, knee No observ ation record ed. [email or web address] [facility] [address], [address], [place], [address], 05/06/2023 10:28:27 Result Notes None recorded. Problems Name Problem SNOMED Code Status Onset Date Resolution Date Notes Provider Name and Address Organization Details Recorded Time Benign essential hypertens ion 1236655 Active Not Available [facility] 3 14:49:00 Backache 555626150 Active Not Available [facility] 3 14:49:01 Plantar fasciitis 919642885 Active Not Available [facility] 3 14:49:01 Gastroeso phageal reflux disease 701730454 Active Not Available [facility] 3 14:49:01 Chest pain 16795683 Completed Not Available [facility] 3 14:49:01 Sinusitis 66414100 Completed Not Available [facility] 3 14:49:01 Obesity 722244196 Active Not Available [facility] 3 14:49:02 Pain of hip region 03671053 Completed Not Available [facility] 3 14:49:02 Coronary arteriosc lerosis 20435064 Active Not Available [facility] 3 14:49:02 Hyperlipi demia 65392298 Active Not Available [facility] 3 14:49:02 Allergic rhinitis 33999982 Active Not Available [facility] 3 14:49:02 Sleep apnea 53097066 Active Not Available [facility] 3 14:49:03 Pain in toe 438720219 Completed 201610/16/2020 Not Available [facility] 3 14:49:01 History of placement of stent for coronary artery disease 483151530 Active 2020 Not Available [facility] 3 14:49:02 Prediabet es 102662116 Active 2020 Not Available [facility] 3 14:49:03 Hyperinsu linism 41500913 Active 2020 Not Available [facility] 3 14:49:03 Hyperglyc emia 63196627 Active 2020 Not Available [facility] 3 14:49:03 Psoriatic arthritis 000514316 Active 2020 Not Available [facility] 3 14:49:00 Osteoarth ritis of knee 874045346 Active 2020 Not Available [facility] 3 14:49:01 Abnormal testoster one 672990900 Active 2020 Not Available [facility] 3 14:49:00 Granuloma tosis with polyangii tis 903086754 Active 2021 Not Available [facility] 3 14:49:01 Anterior epistaxis 799511279 Active 2021 Not Available [facility] 3 14:49:01 Testicula r hypofunct ion 511449126 Active 2021 Not Available [facility] 3 14:49:00 Primary erectile dysfuncti on 330690400 Active 2021 Not Available [facility] 3 14:49:02 Type 2 diabetes mellitus without complicat ion 652678322 Active 2022 HANDY Corado-Gerber [address], [address], [address] , [employer] [facility] [employer] [facility] 3 17:25:20 Essential hypertens ion 42773517 Active 2022 HANDY Corado-C [address], [address], [address] , [employer] [facility] [employer] [facility] 3 17:25:32 Malignant neoplasm of prostate 737268265 Active 2022 HANDY Corado-Gerber [address], [address], [address] , [employer] [facility] [employer] [facility] 3 17:26:07 Testoster one level below reference range 246885527 Active 2022 HANDY Corado-C [address], [address] [place] [address], [address] , [employer] [facility] [employer] [facility] 3 17:26:15 Mixed anxiety and depressiv e disorder 026811283 Active 2022 HANDY Corado-C [address], [address], [address] , [facility] [employer] [facility] [place] [employer] [facility] 3 17:26:23 Abdominal bloating 044222519 Active 2022 HANDY Corado-C [address], [address], [place], [address] , [facility] [employer] [facility] 3 17:26:46 Coronary atheroscl erosis 497719564 Active 2022 HANDY Corado-C [address], [address], [place], [address] , [facility] [employer] [facility] [employer] [facility] 3 17:28:31 Morbid obesity 456025430 Active 2022 HANDY Corado-C [address], [address], [place], [address] , [facility] [employer] [facility] 3 16:33:15 Intermitt ent claudicat ion 09609764 Active 2022 HANDY Corado-C [address], [address], [place], [address] , [facility] [employer] [facility] [employer] [facility] 3 16:23:38 Edema of lower extremity 866509732 Active 2022 HANDY Corado-C [address], [address], [place], [address] , [facility] [employer] [facility] 3 16:25:08 Pain of left knee joint 69660411998 4107 Active 2022 BRONSON Pena, [facility] [employer] [facility] 3 11:57:54 Lumbar radiculop athy 845813061 Active 2022 HANDY Corado-C [address], [address], [place], [address] , [facility] [employer] [facility] 3 10:59:58 Problem Notes None recorded. Procedures Surgical History Date Name Laterality Status Provider Name and Address Organization Details Recorded Time Cardiac Stent Placement completed Not Available [facility] 09/16/2022 14:45:32 Imaging Results None recorded. Procedure [...] Not Available Not Available BD Regular Bevel [place] 18 gauge x 1 USE DIRECTED . [...] e, administ ered by provider [address] [facility]: [phone] Not Available [...] e, administ ered by provider [address] [facility] [address]-25 4- Not Available Not Available Not Available [...] Updated DateTime 4 180.34 cm 51.7 kg/m2 001444. 33 g 97.8 [degF] 88 /min 97 % 97 % 126/82 mm[Hg] Deedee Hernandez [facility] [employer] [facility] 4 16:07:52 Date Recorded Body height Body temperature Heart rate Oxygen saturation Oxygen saturation in Arterial blood by Pulse oximetry Systolic And Diastolic Provider Name and Address Organization Details Last Updated DateTime 3 187.96 cm 97.4 [degF] 84 /min 96 % 96 % 158/90 mm[Hg] Deedee Hernandez [facility] [employer] [facility] 3 16:05:34 Date Recorded Body height Body mass index (BMI) Body weight Body temperature Heart rate Oxygen saturation Oxygen saturation in Arterial blood by Pulse oximetry Systolic And Diastolic Provider Name and Address Organization Details Last Updated DateTime 3 187.96 cm 62.3 kg/m2 103994. 3 g 97.6 [degF] 78 /min 96 % 96 % 154/92 mm[Hg] Deedee Hernandez [facility] [employer] [facility] 3 15:54:32 Date Recorded Body height Body mass index (BMI) Body weight Body temperature Heart rate Oxygen saturation Oxygen saturation in Arterial blood by Pulse oximetry Systolic And Diastolic Provider Name and Address Organization Details Last Updated DateTime 3 187.96 cm 56.1 kg/m2 679854. 87 g 98.5 [degF] 86 /min 97 % 97 % 138/80 mm[Hg] Deedee Hernandez [facility] [employer] [facility] 3 10:23:32 Date Recorded Body height Body mass index (BMI) Body weight Provider Name and Address Organization Details Last Updated DateTime 05/06/2023 180.34 cm 61.8 kg/m2 056196.42 g ALEX Garcia [place] [facility] 05/06/2023 09:45:05 Social History Question Answer Notes LastModified by Organizat ion Details LastModified Time Tobacco Smoking Status Never Smoker Not Available [facility] 09/16/2022 14:45:15 What Is Your Level Of Caffeine Consumption? Occasional MIGRATION.25557 85667 Information not available 09/16/2022 How Much Tobacco Do You Chew? None MIGRATION.69836 54062 Information not available 09/16/2022 In The 14 Days Before Symptom Onset, Have You Had Close Contact With A Laboratory-confir med COVID-19 While That Case Was Ill? No MIGRATION.08524 06592 Information not available 09/16/2022 In The 14 Days Before Symptom Onset, Have You Had Close Contact With A Person Who Is Under Investigation For COVID-19 While That Person Was Ill? No MIGRATION.13066 24464 Information not available 09/16/2022 What Type Of Diet Are You Following? REGULAR MIGRATION.12174 11245 Information not available 09/16/2022 Which Illicit Or Recreational Drugs Have You Used? None MIGRATION.72474 59475 Information not available 09/16/2022 What Is The Highest Grade Or Level Of School You Have Completed Or The Highest Degree You Have Received? TK87469-1 MIGRATION.67247 82585 Information not available 09/16/2022 Have There Been Any Changes To Your Family Or Social Situation? No MIGRATION.66267 99524 Information not available 09/16/2022 What Is The Fluoride Status Of Your Home? Unknown MIGRATION.97121 55620 Information not available 09/16/2022 Do You Use Insect Repellent Routinely? No MIGRATION.94011 20002 Information not available 09/16/2022 Where Do You Live? [place]LevelHouse MIGRATION.33795 14593 Information not available 09/16/2022 What Was The Date Of Your Most Recent Tobacco Screening? 07/26/2023 Information not available 07/26/2023 Have You Ever Been Counseled For Unhealthy Alcohol Use? No MIGRATION.27863 72471 Information not available 09/16/2022 Do You Have Any Pets? Yes MIGRATION.50077 32126 Information not available 09/16/2022 What Is Your Relationship Status? Single MIGRATION.63176 15936 Information not available 09/16/2022 Do You Have Smoke And Carbon Monoxide Detectors In Your Home? Yes MIGRATION.28594 33784 Information not available 09/16/2022 Are You Passively Exposed To Smoke? No MIGRATION.96598 52728 Information not available 09/16/2022 Are There Any Smokers In Your House? No MIGRATION.10074 63840 Information not available 09/16/2022 Do You Use Sunscreen Routinely? No MIGRATION.30145 95074 Information not available 09/16/2022 Has Tobacco Cessation Counseling Been Provided? No MIGRATION.58464 27080 Information not available 09/16/2022 Have You Recently Traveled Abroad? No MIGRATION.83743 54686 Information not available 09/16/2022 Do You Have Any Dietary Restrictions? No MIGRATION.44768 02641 Information not available 09/16/2022 Sex: Unknown Functional Status Question Answer Note LastModified by Basha ion Details LastModified Time Do you use any illicit or recreational drugs? No MIGRATION.250928 6045 Information not available 09/16/2022 Do you or have you ever used any other forms of tobacco or nicotine? No Information not available 11/11/2022 What is your level of alcohol consumption? Occasional MIGRATION.951934 6081 Information not available 09/16/2022 Do you or have you ever used smokeless tobacco? 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 Never used electronic cigarettes MIGRATION.854539 3077 Information not available 09/16/2022 What is your exercise level? None MIGRATION.885251 3300 Information not available 09/16/2022 Mental Status Question Answer Note LastModified by [employer] ion Details LastModified Time Do you feel stressed (tense, restless, nervous, or anxious, or unable to sleep at night)? [id number] MIGRATION.891776995 6 Information not available 09/16/2022 Family History Relationship Description Onset Age of this Age Resolved Age Notes LastModified by Organization Details LastModified Time Unspecified Relation Heart disease MIGRATION.813 [id number] Not available 09/16/2022 14:45:32 Unspecified Relation Diabetes mellitus MIGRATION.795 [id number] Not available 09/16/2022 14:45:32 Brother Malignant neoplasm of pancreas told it was DNA based MIGRATION.804 7841886 Not available 09/16/2022 14:45:33 Medical History Condition Response CANCER: SPECIFY Y ARTHRITIS Y DEPRESSION (INCLUDING POST ) Y HEART MURMUR Y HYPERTENSION Y HIGH CHOLESTEROL / HYPERLIPIDEMIA Y Immunizations Vaccine Type Date Status Note Provider Nam e and Address Organization Details Recorded Time Influenza, split virus, quadrivalent, preservative 0 completed Not Available [facility] 09/16/2022 14:52:14 Influenza, split virus, quadrivalent, PF 3 completed Not Available [facility] 09/16/2022 14:52:15 Influenza, split virus, quadrivalent, PF 1 completed Not Available [facility] 09/16/2022 14:52:15 Past Encounters Encounter ID Performer Location Encounter Start Date Encounter Closed Date Diagnosis/Indication Diagnosis SNOMED-CT Code Diagnosis ICD10 Code Diagnosis IMO Codes Diagnosis Note [id number] [facility] Marlyn richardson [facility] [place] [address] 10/16/2020 00:00:00 10/16/2020 18:57:46 [id number] [facility] Marlyn richardson [facility] [place] [address] 11/13/2020 00:00:00 11/14/2020 08:06:35 [id number] [facility] Marlyn richardson [facility] [place] [address] 12/12/2020 00:00:00 12/12/2020 18:02:41 [id number] Gael Askew MD [facility] [place] [address] 01/23/2021 00:00:00 01/23/2021 12:20:40 [id number] Gael Askew MD [facility] Marlyn richardson [facility] [place] [address] 02/20/2021 00:00:00 02/20/2021 16:46:08 [id number] Gael Askew MD [facility] [place] [address] [facility] [place] [place] [address] 03/20/2021 00:00:00 03/20/2021 16:47:36 [id number] Gael Askew MD [facility] [place] [address] [place] [address] [place] [address] 04/24/2021 00:00:00 04/24/2021 16:37:47 [id number] Noe Mcclendon MD [facility] [place] [address] [place] [address] [address] [place] [address] 04/28/2021 00:00:00 05/02/2021 09:49:39 [id number] Gael Askew MD [facility] Family [facility] [place] [address] [place] [address] [place] [address] 05/26/2021 00:00:00 05/26/2021 16:55:27 [id number] Spencer Simmons NP [facility] Urology [address] [address] 06/16/2021 00:00:00 06/18/2021 13:54:56 [id number] Gael Askew MD [facility] Family [facility] [place] [address] [place] [address] [place] [address] 06/24/2021 00:00:00 06/24/2021 16:45:22 [id number] Spencer Simmons NP [facility] Urology [address] [place] [address] 07/21/2021 00:00:00 08/11/2021 11:39:33 [id number] Gael Askew MD [facility] Family [facility] [place] [address] [place] [address] [place] [address] 07/24/2021 00:00:00 07/24/2021 11:11:32 [id number] Spencer Simmons NP [facility] [address] [address] 09/01/2021 00:00:00 09/01/2021 17:35:57 [id number] [facility] [place] [address] [place] [address] 09/25/2021 00:00:00 09/25/2021 16:33:44 [id number] Spencer Simmons NP [facility] [address] [address] 10/13/2021 00:00:00 10/13/2021 17:16:57 [id number] Gael Askew MD [facility] [place] [address] [place] [address] 11/20/2021 00:00:00 11/20/2021 15:40:10 [id number] Mello Copeland MD [facility] [place] [address] [place] [address] 12/08/2021 00:00:00 12/08/2021 16:09:57 [id number] Spencer Simmons NP [facility] [address] [address] 01/05/2022 00:00:00 01/05/2022 15:55:58 [id number] Spencer Simmons NP [facility] [address] [address] 01/12/2022 00:00:00 01/26/2022 08:59:18 [id number] Spencer Simmons NP [facility] [address] [address] 02/23/2022 00:00:00 02/23/2022 16:14:48 [id number] [facility] [place] [address] [place] [place] [address] 02/26/2022 00:00:00 02/26/2022 17:58:31 [id number] Haydee jasmine MD [facility] Internal Med [facility] [address] [place] [address] 08/14/2022 00:00:00 08/14/2022 16:56:48 [id number] Haydee jasmine MD [facility] Internal Med [place] [address] [facility] [place] [address] 11/11/2022 15:56:57 11/11/2022 16:36:23 Type 2 diabetes mellitus without complication 341451952 E11.9 On metformin and Jardiance- he is aware of side effects, risks, benefitsOz empic worked well but he cannot afford it with his insuranceH e knows to call if any signs or symptoms of UTI or groin infectionD iabetic eye exam recommende dDaily foot checks recommende d Hyperlipidemia 93884310 E78.5 On atorvastat in and ezetimibe Essential hypertension 34654645 I10 On losartan, HCTZ, amlodipine , metoprolol follows cardiology - Dr. Caleb Nelson at [facility] Sleep apnea 74179977 G47 .30 On CPAPGet appointmen t with pulmonolog y for compliant Psoriatic arthritis 1563 85583 L40.50 Follows rheumatolo gy-Dr. Suarez Cosentyx, methotrexa te, prednisone prn, tramadol prnhe is aware I cannot write for narcotics out of this office Malignant neoplasm of prostate 728224292 C61 follows urology- Dr. Sanchez deferring treatment for now Testostero ne level below reference range 505059668 R89.1 follows urology as above Mixed anxi ety and depressive disorder 856284053 F41.8 Follow psychiatry -Dr. Lawrence dulshine and Wellbutrin Call office if any change in mood or behavior Coronary atherosclerosis 320230650 I25.10 Follows Cardiology at [facility]-Dr. Caleb Garcia/p stent placement Gastroesop hageal reflux disease 364855445 K21.9 on omeprazole - he is aware of side effects, risks, and benefitsLi festyle measures to decrease acid discussed Morbid obesity 771865683 E66.01 plans bariatric surgery in the Fall at [facility] has upcoming appt for cardiac clearancei [...] recommend resistance training 2-3 times per week [id number] Haydee jasmine MD [facility] [place]n rich[place] [address] [place] [address] [facility] [place] [address] 03/17/2023 15:43:17 03/17/2023 16:31:31 Type 2 diabetes mellitus without complication [id number] E11.9 On metformin and Jardiance- he is aware of side effects, risks, benefitsOz empic worked well but he cannot afford it with his insuranceH e knows to call if any signs or symptoms of UTI or groin infectionD iabetic eye exam recommende dDaily foot checks recommende d Hyperlipidemia [id number] E78.5 On atorvastat in and ezetimibe Essential hypertension 11033163 I10 On losartan, HCTZ, amlodipine , metoprolol follows cardiology - Dr. Caleb Nelson at [facility] Sleep apnea [id number] G47 .30 On CPAPGet appointmen t with pulmonolog y for compliance - has been referred Psoriatic arthritis 1563 [id number] L40.50 Follows rheumatolo gy-Dr. Suarez Cosentyx, methotrexa te, prednisone prn, tramadol prnhe is aware I cannot write for narcotics out of this office Malignant neoplasm of prostate 448271839 C61 follows urology- Dr. Sanchez deferring treatment for now Testostero ne level below reference range 028169452 R89.1 follows urology as above Mixed anxi ety and depressive disorder 246781277 F41.8 Follow psychiatry -Dr. Lawrence duloxetine and Wellbutrin Call office if any change in mood or behavior Coronary atherosclerosis 023806943 I25.10 Follows Cardiology at [facility]-Dr. Caleb Garcia/p stent placement Gastroesop hageal reflux disease [id number] K21.9 on omeprazole - he is aware of side effects, risks, and benefitsLi festyle measures to decrease acid discussed Morbid obesity 189966579 E66.01 plans bariatric surgery in the Fall at [facility] has upcoming appt for cardiac clearancei [...] 2-3 times per week Intermitte nt claudication 97109324 I73.9 get aterial doppler Edema of l ower extremity 152577869 R60.0 get venous dopplercom pression stockings recommened ed [id number] Haydee jasmine MD [facility] [place] [address] 05/05/2023 10:13:36 05/05/2023 11:45:28 Type 2 diabetes mellitus without complication 103291242 E11.9 On metformin and Jardiance- he is aware of side effects, risks, benefitsOz empic worked well but he cannot afford it with his insuranceH e knows to call if any signs or symptoms of UTI or groin infectionD iabetic eye exam recommende dDaily foot checks recommende d Hyperlipidemia 33228744 E78.5 On atorvastat in and ezetimibe Essential hypertension 36108758 I10 On losartan, amlodipine , metoprolol follows cardiology - Dr. Caleb Nelson at [facility] Sleep apnea 27300107 G47 .30 On CPAPGet appointmen t with pulmonolog y for compliance - has been referred Psoriatic arthritis 1563 60855 L40.50 Follows rheumatolo gy-Dr. Suarez Cosentyx, methotrexa te, prednisone prn, tramadol prnhe is aware I cannot write for narcotics out of this office Malignant neoplasm of prostate 514928183 C61 follows urology- Dr. Sanchez deferring treatment for now Testostero ne level below reference range 490809735 R89.1 follows urology as above Mixed anxi ety and depressive disorder 554335302 F41.8 Follow psychiatry -Dr. Lawrence duloxetine and Wellbutrin Call office if any change in mood or behavior Coronary atherosclerosis 346247422 I25.10 Follows Cardiology at [facility]-Dr. Caleb Mcclendonels/p stent placement Gastroesop hageal reflux disease 465702857 K21.9 on omeprazole - he is aware of side effects, risks, and benefitsLi festyle measures to decrease acid discussed Morbid obesity 579269465 E66.01 s/p bariatric surgery in the Fall at [facility] recommend healthy, well balanced mealsfocus on lean meats, fresh vegetables , fresh fruits, whole grainsredu ce fast/proce ssed foods or eating out to no more than 1-2 times per weekaim to get 30 min of exercise most days of the week- walking is a great choicealso recommend resistance training 2-3 times per week Intermitte nt claudication 46761207 I73.9 get aterial doppler Edema of l ower extremity 859594725 R60.0 s/p venous doppler- sig venous insufficie ncycompres eunice stockings recommende dnow following his cardiologi st Lumbar radiculopathy 128 779598 M54.16 patient does not want to see neurosurge ry at this time- wants to wait until he loses weight furtherwan ts to go back to pain mangementg et re-establi shed- Dr. Rochelle Grayson at [facility] s [id number] Noe Mcclendon MD [facility] [address] [place] [address], [address] [place] [address] 05/06/2023 09:21:17 05/06/2023 10:35:32 Pain of left knee joint [id number] 33819 M25.902 [id number] Haydee jasmine MD [facility] Internal [facility] [address] [place] [address] 07/26/2023 15:56:30 07/26/2023 16:33:01 Type 2 diabetes mellitus without complication 940510763 E11.9 On metformin and Jardiance- he is aware of side effects, risks, benefitsOz empic worked well but he cannot afford it with his insuranceH e knows to call if any signs or symptoms of UTI or groin infectionD iabetic eye exam recommende dDaily foot checks recommende d Hyperlipidemia 33141182 E78.5 On atorvastat in and ezetimibe Essential hypertension 47050216 I10 On losartan, amlodipine , metoprolol follows cardiology - Dr. Caleb Nelson at [facility] Sleep apnea 30011366 G47 .30 On CPAPGet appointmen t with pulmonolog y for compliance - has been referred Psoriatic arthritis 1563 86340 L40.50 Follows rheumatolo gy-Dr. Suarez Cosentyx, methotrexa te, prednisone prn, tramadol prnhe is aware I cannot write for narcotics out of this office Malignant neoplasm of prostate 219873220 C61 follows urology- Dr. Sanchez deferring treatment for now Testostero ne level below reference range 573846966 R89.1 follows urology as above Mixed anxi ety and depressive disorder 548318528 F41.8 Follow psychiatry -Dr. Lawrence duloxetine and Wellbutrin Call office if any change in mood or behavior Coronary atherosclerosis 580441596 I25.10 Follows Cardiology at [facility]-Dr. Caleb Garcia/p stent placement Gastroesop hageal reflux disease 956411173 K21.9 on omeprazole - he is aware of side effects, risks, and benefitsLi festyle measures to decrease acid discussed Morbid obesity 357245962 E66.01 s/p bariatric surgery in the Fall at [facility] recommend healthy, well balanced mealsfocus on lean meats, fresh vegetables , fresh fruits, whole grainsredu ce fast/proce ssed foods or eating out to no more than 1-2 times per weekaim to get 30 min of exercise most days of the week- walking is a great choicealso recommend resistance training 2-3 times per week Intermitte nt claudication 76698618 I73.9 get aterial doppler Edema of l ower extremity 910656169 R60.0 s/p venous doppler- sig venous insufficie ncycompres eunice stockings recommende dnow following his cardiologi Lumbar radiculopathy 128 429151 M54.16 is following pain management - Dr. Rochelle Grayson at [facility] has ordered MRI of the spine but his insurance is requiring PT first before they will approveHe is very frustrated by this and has refused PTLong discussion today- I encouraged him to attend PT and do what he can, so that he can get his scans done, he expressed much frustratio n today at this [facility] tEncourage d him as difficult as it [...] Mccullough Member ID Guarantor Name 07/26/[address] [facility] ([facility] [id number] Doc Jono Green [id number] Doc Green Notes Date Note Type Note [...] does have an upcoming appointment with his family medicine chair. He plans to get bariatric surgery later this year. His surgery date is tentatively set for April. He needs PCP clearance and labs for me today. He has an appointment in a couple weeks to get cardiac clearance from his family medicine chair. He continues to follow his director of vendor management for the psoriatic arthritis. Mood is well [...] that in 10 years. KENDELL Corado [address], [address], [place], [address], [employer] 11/11/2022 16:35:37 03/17/2023 text/html Doc presents today for follow-up. His gastric bypass surgery scheduled for April 21. His blood pressure is a little bit elevated today, he is working with his family medicine chair on this. He is asymptomatic with this. He denies any chest pain, shortness of breath, palpitations, headache, or any other neuro symptoms. He continues to follow with his director of vendor management for the psoriatic arthritis. He is requesting [...] PND, or orthopnea. KENDELL Corado [address], [address], [place], [address], [employer] 03/17/2023 17:11:48 05/05/2023 text/html Doc presents today [...] He has previously seen Pain Management at [facility] and like to go back there. He has also been having some pain in his knees. He has an appointment with Ortho tomorrow for that. He is going to be seeing Dr. Mcclendon. Today he tells me the pain is improved and not as bad as it has been. HANDY Corado-Gerber [address], [place], [address], [facility] [employer] 05/05/2023 11:01:28 05/06/2023 text/html patient returns today [...] of 61.8. Noe Mcclendon MD [address], [address], [place], [address], [facility] [employer] 05/06/2023 10:33:37 07/26/2023 text/html Doc presents today [...] denies any SI or HI. Jenni Tamayo, [employer]IGHT [employer] AGENT-C [address] [facility], [facility] [address], [place], [address], [facility] [employer] 07/26/2023 17:05:51
[2025-05-14 08:33] VITALS: BP 162/107; PULSE 80; RESP 18; TEMP 36.9; O2SAT 98
--- NOTE | 2025-05-14 09:17 | P.OP_ITS ---
Procedure Note - Detailed Date of Procedure 05/14/25 Pre-op Diagnosis Lumbar radiculopathy, lumbar spinal stenosis Post-op Diagnosis Same Procedure Performed Bilateral Lumbar Transforaminal Epidural Steroid Injection under Fluoroscopic Gu idance and with Contrast Control at L2-3. Surgeon Edgar Holly MD Anesthesia Local Description of Procedure INFORMED CONSENT: Risks, benefits and alternatives to the procedure were discussed in detail with the patient who expressed explicit understanding and consent to proceed. Patient was informed verbally and in written form regarding the risks associated with the procedure including the low risk of serious infection, bleeding/bruising, allergic reaction, nerve or organ injury, paralysis, procedural site pain or discomfort, worsening pain and/or mobility, failure to treat and/or disfigurement. The patient expressed explicit understanding and consent to proceed. All materials required for the procedure were available prior to procedure start. Site and side was marked prior to procedure and confirmed in the presence of the patient. PROCEDURE IN DETAIL: The patient was brought to the procedural suite and placed in the prone position. Patient was made comfortable with use of pillows under the head/chest, hips and ankles. Skin overlying the injection site was prepared broadly with ChloraPrep applicator and draped in a sterile manner. Aseptic technique was employed throughout. The endplates of the vertebral body at the site of interest were aligned in the AP view. Ipsilateral oblique angulation was utilized to better visualize the neuroforamen of interest. Local anesthesia was established by infiltration with approximately 5 mL of 0.5% PF lidocaine via a 1-1/2 inch 27-gauge needle. A 22-gauge 5.0 inch Leonidas (pencil point) spinal needle was advanced until the needle approached the 6 o'clock position on the pedicle just superior to the exiting nerve root. on the right at L2-3. Lateral view was utilized to confirm appropriate position of the needle tip within the superior and posterior portion of the respective foramen. In an AP view, 1 mL of Omnipaque 300 contrast medium was injected after negative aspiration for CSF, blood or other bodily fluid, showing appropriate neurogram without evidence of intravascular or intrathecal spread of contrast. Digital subtraction imaging was used with an additional 1ml of the same contrast medium to confirm absence of intravascular contrast spread. A 1mL solution containing 5 mg of dexamethasone was injected after negative repeat aspiration. Appropriate spread of the injectate was confirmed with washout of previously injected contrast. No parasthesias were elicited. Needle was removed completely intact without difficulty. The same exact procedure was repeated for all remaining levels on the contralateral side, left L2-3 neuroforamen, modified as necessary to accommodate for the new target location with identical findings and results and no evidence of complication. Images were saved and documented in the patient chart. Patient's skin was cleaned and sterile bandage applied. The patient tolerated the procedure well. The patient was transported to the recovery area in stable condition where they were observed for an appropriate amount of time prior to discharge, without evidence of complication. The patient was instructed to avoid excessive activity for the next 48 hours, including climbing and frequent use of stairs. Showers only for 48 hours. They were instructed not to drive or operate heavy machinery for 24 hours. They are to monitor for severe headaches, fevers, chills, night sweats, erythema/swelling at the site or any other signs of infection, bleeding/bruising, bowel or bladder changes as well as new pain, weakness or numbness in the upper or lower extremity. Should they notice these changes, they are instructed to call our o ffice immediately or report directly to the nearest Emergency Department if no answer or if after posted office hours. COMPLICATIONS: None COMMENTS: None CONTRAST WASTED: 26 mL Omnipaque 300. STEROID WASTED: 0 mg of dexamethasone. Complications No immediate complications Condition Stable Disposition Same day [facility] Billing Surgery - Charge Forward: Surgery Billing
--- NOTE | 2025-05-14 09:17 | WPDHPUPDATE1 ---
History and Physical Update Update Date/Time: 05/14/25 09:17 History and Physical has been reviewed, including an updated exam of the patient. There are NO changes in the patient's condition. Risks, benefits, and alternatives have been discussed and questions answered. Patient agrees to proceed with procedure.
[2025-05-14 09:27] VITALS: BP 170/86; PULSE 75; RESP 11; O2SAT 95
[2025-05-14 09:32] VITALS: BP 172/94; PULSE 78; RESP 12; O2SAT 98
[2025-05-14] MEDS: LIDOCAINE 1% PF INJ 5 ML VIAL INFILTRATE (09:35)
[2025-05-14] MEDS: LIDOCAINE 2% PF LOCAL INJ 5 ML VIAL 2 ML INFILTRATE (09:35)
[2025-05-14 09:36] VITALS: BP 166/98; PULSE 72; RESP 10; O2SAT 97
[2025-05-14] MEDS: dexAMETHasone SOD PHOS INJ 10 MG/ML 1 ML VIAL IM (09:36)
[2025-05-14 09:39] VITALS: BP 155/94; PULSE 75; RESP 18; O2SAT 99
== END 2025-05-14 09:49 | disposition home or self-care (01) ==
PROVIDERS: PCP Nurse Practitioner Adult Health; Visit Provider Anesthesiology Pain Medicine
PROC: (CPT 64483; principal; 2025-05-14 09:10)
DX: M48.061 Spinal stenosis, lumbar region without neurogenic claudication (principal); M54.16 Radiculopathy, lumbar region
CPT/HCPCS: 64483; 99199

== ENCOUNTER 2025-07-05 10:57 | Outpatient (CLI) | payer OTHER, SELFPAY ==
--- OUTSIDE RECORDS SUMMARY | 2025-04-12 09:30 | XMS_ITS ---
Author Organization [facility] Address [address] [facility] [address] [place] [address] Care Team Providers Care Chief Console Operator Name Role Phone Clarice Gold APRN Primary Care Provider Sherman Morillo Unavailable [phone] REASON FOR VISIT 3 month f/u Social History Sex Assigned At : Social History Observation Description Sex Assigned At Male Encounters Encounter Location Date Provider Diagnosis [facility] [address] [facility] [address] [place] [address] 04/12/2025 Sherman Shin Plan Of Treatment Next Appt Details Provider Name:Sherman Shin , 08/06/2025 04:00:00 PM, [address], [facility] [address], [place], [address], Progress Notes * ANGELSEEROBBIEDOB:1969 (55 yo M)Acc No.[id number]:04/12/2025 Patient: ROBBIE FARIA Provider: Gino SHIN MD :1970 A ge:55 Y S ex:Male Date:04/12/2025 Address:[address] [place] [id number] Pcp:Clarice Gold APRN Subjective: * Chief Complaints: * 3 month f/u * Active Problem List F41.1 Generalized anxiety disorder Onset Date:12/02/2023Modified On:02/03/2024W/U Status:confirmed F33.2 Major depressive dis order, recurrent severe without psychotic features Onset Date:12/02/2023Modified On:02/03/2024W/U Status:confirmed I10 Essential (primary) hypertension Onset Date:12/02/2023Modified On:02/03/2024/U Status:confirmed G47.33 Obstructive sleep ap toshia (adult) (pediatric) Onset Date:12/02/2023Modified On:02/03/2024W/U Status:confirmed F90.2 ADHD (attention defi cit hyperactivity disorder), combined type Modified On:11/23/2024W/U Status:confirmed * Electronic signature of Kain Shin MD on 07/05/2025 at 12:14 PM SUBSTANCE ABUSE TECHNICIAN Sign off status: Pending * Provider: Gino SHIN MD Date: 0 04/12/2025 Generated for Roberto cantu/Nancy/eTkharismitting on: 1 09/05/2024 12:14 PM SUBSTANCE ABUSE TECHNICIAN
--- NOTE | ~2025-07-05 | XR_ITS ---
EXAMINATION: XR chest 2V DATE: 07/05/2025 11:50 INDICATION: Lumbar spinal stenosis TECHNIQUE: PA and lateral views of the chest were obtained. COMPARISON: None FINDINGS: The lungs are clear with no focal airspace opacities, pulmonary edema, pleural effusion or pneumothorax. The cardiomediastinal silhouette is normal. Mild thoracic dextrocurvature with mild spondylosis and bridging osteophytes at multiple levels consistent with diffuse idiopathic skeletal hyperostosis (DISH). IMPRESSION: 1. No acute cardiopulmonary disease. Reviewed, dictated and finalized at location A. HER PRODUCTION MACHINE OPERATOR
[2025-07-05 11:38] LABS: Hematocrit 41.4 % (42.0-52.0); Hemoglobin 13.6 g/dL (14.0-18.0); Mean Corpuscular HGB Conc 32.9 g/dl (32-36); Mean Corpuscular Hemoglobin 29.6 pg (26-34); Mean Corpuscular Volume 90.0 fl (80-100); Platelet Count Result 234 k/mm3 (150-375); Red Blood Count 4.60 M/mm3 (4.6-6.20); White Blood Count 4.6 K/mm3 (4.5-10.0)
[2025-07-05 11:39] LABS: Add Urine Microscopic? NO; Appearance Urine Clear (Clear); Glucose Urine UA Negative (Negative); Leukocyte Esterase Ur Negative LEU/UL (Negative); Nitrate Urine Negative (Negative); Specific Grav Ur 1.024 (1.001-1.035)
[2025-07-05 11:55] LABS: INR 1.0; Prothrombin Time 12.9 Seconds (11.1-14.7)
[2025-07-05 11:56] LABS: Partial Thromboplastin Time 27.4 Seconds (22.3-36.8)
[2025-07-05 11:57] LABS: Anion Gap 3 mmol/L (4-12); Blood Urea Nitrogen 25 mg/dL (9-20); Calcium 9.1 mg/dL (8.4-10.2); Carbon Dioxide 31 mmol/L (22-30); Chloride 106 mmol/L (98-107); Estimated Glomerular Filt Rate > 60; Glucose 86 mg/dL (65-110); Potassium 4.7 mmol/L (3.4-5.0); Sodium 140 mmol/L (137-145)
--- OUTSIDE RECORDS SUMMARY | 2025-07-05 12:15 | XMS_ITS ---
Author Organization [facility] Address [address] [place] [address] Care Team Providers Care Master Yacht Name Role Phone Rochelle Grayson MD Unavailable Clarice Gold NP Primary Care Provider [phone] Active Problems Problem Noted Date Diagnosed Date Preoperative cardiovascular examination 05/12/20 24 Assessment & Plan (05/12/2024 2:44 PM CDT): [...] weight loss without success. Plan: Refer to [facility]'s bariatric program Assessment & Plan (04/07/2019 5:02 [...] reflux. Have encouraged him to purchase intake [id number] Nexium. If his symptoms are not improved in a month that he is to contact us at which time we may consider pursuing stress testing since his symptoms are both postprandial and exertional Body mass index 40+ - severely obese 10/01/2016 Overview (12/11/2016): Body mass index 40+ - severely obese Hyperlipidemia 10/01/2016 Overview (12/11/2016): Hyperlipidemia Assessment & Plan (05/25/2025 2:53 PM MUD MIXER): Reasonably well controlled today with an LDL of 64 mg/dL. Continue high- intensity Lipitor. Assessment & Plan (05/12/2024 2:45 PM CDT): [...] (10/24/2016): Dyspnea on exertion Coronary arteriosclerosis in [place] artery 09/25 Overview (10/24/2016): Coronary arteriosclerosis in [place] artery Assessment & Plan (05/25/2025 2:52 PM MUD MIXER): Now reporting episodes of chest discomfort that are difficult to characterize and may not be the result of myocardial ischemia. Unable to exercise. Continue aspirin and statin. Will arrange for a Lexiscan stress test. Assessment & Plan (05/12/2024 2:44 PM CDT): [...] Overview (10/24/2016): Essential hypertension Assessment & Plan (05/25/2025 2:52 PM MUD MIXER): Blood pressure well controlled. Continue losartan and metoprolol. Assessment & Plan (05/19/2023 3:17 PM CDT): [...]
--- OUTSIDE RECORDS SUMMARY | 2025-07-05 12:15 | XMS_ITS | Patient Health Record ---
Author Organization [facility] [employer] Address [address] [place] [address] Care Team Providers Care Linux Network Systems Administrator Name Role Phone Clarice Gold APRN Primary Care Provider Sherman Morillo Unavailable [phone] Allergies No Known Allergies Results Component Value Reference Range Notes UDT Reviewed date:10/24/2024 04:47:19 PM Interpretation: Performing Lab: Notes/Report: Amphetamine (AMP) NEG 0 - 1000 ng/ml Buprenorphine (BUP) NEG 0 - 10 ng/ml Oxazepam (BZO) NEG 0 - 300 ng/ml Cocaine (UMM) NEG 0 - 300 ng/ml Methamphetamine (mAMP) NEG 0 - 300 ng/ml Methylenedioxymethamphetamine (MDMA) NEG 0 - 500 ng/ml Morphine (MOP) NEG 0 - 25 ng/ml Methadone (MTD) NEG 0 - 300 ng/ml Oxycodone (OXY) NEG 0 - 300 ng/ml THC NEG 0 - 50 ng/ml x NEG 0 - 1000 ng/ml x NEG 0 - 1000 ng/ml x NEG 0 - 300 ng/ml x NEG 0 - 300 ng/ml x NEG 0 - 300 ng/ml Reason For Referral No Information Medications Medication SIG (Take, Route, Frequency, Duration) Notes Start Date End Date Status DULoxetine HCl 60 MG Capsule Delayed Release Particles 1 capsule Oral Once a day; Duration: 90 days 05/07/2025 Active Atomoxetine HCl 80 MG Capsule 1 capsule Orally Once a day; Duration: 90 days 05/07/2025 Active Atorvastatin Calcium 80 MG Tablet TAKE 1 TABLET BY MOUTH EVERY DAY Oral; Duration: 90 Days Active azaTHIOprine 50 MG Tablet TAKE 2 [...] DAY FOR 90 DAYS; Duration: 90 Active Immunizations Vaccine Route Administration Date Status Comme nts Influenza virus vaccine, quadrivalent (IIV4), split virus, 0.25 mL dosage Unknown 04/22/2020 Administered Novel [id number], preservative free Unknown 06/24/2021 Administered Social History Sex Assigned At : Social History Observation Description Sex Assigned At Male Social History Additional Details Category Social Info Options Details Migrated Social History Migrated Social History Alcohol Intake: None 08/04/2023,Tobacco Years: Never smoker 04/03/2019 Section Notes: 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, considering new employment with the [employer] Problems Problem Type SNOMED Code ICD Code Onset Dates Problem Status W/U Status Risk Notes Problem Severe recurrent major depression without psychotic features (21056285) Major depressive disorder, recurrent severe without psychotic features (F33.2) 12/02/19 Active confirmed Problem Generalized anxiety disorder (13752691) Generalized anxiety disorder (F41.1) 12/02/19 24 Active confirmed Problem Obstructive sleep apnea syndrome (disorder) (50608879) Obstructive sleep apnea (adult) (pediatric) (G47.33) 12/02/19 24 Active confirmed Problem Essential hypertension (59457558) Essential (primary) hypertension (I10) 12/02/19 24 Active confirmed Problem Attention deficit hyperactivity disorder (545628210) ADHD (attention deficit hyperactivity disorder), combined type (F90.2) Active confirmed Vital Signs Heart Rate 94 /min 05/07/2025 Height-cm 187.96 cm 05/07/2025 Blood pressure diastolic 85 mm Hg 05/07/2025 Weight-kg 152.59 kg 05/07/2025 Height 74.00 in 05/07/2025 Blood pressure systolic 178 mm Hg 05/07/2025 Weight 336.4 lbs 05/07/2025 BMI 43.19 kg/m2 05/07/2025 Procedures Procedure Date Ordered Date Performed Result Body Sit e ADHD Testing 10/12/2024 10/30/2024 N/A Encounters Encounter Location Date Provider Diagnosis [facility] [employer] [address] [address] 07/17/2024 Sherman Leon Generalized anxiety disorder F41.1 ; Major depressive disorder, recurrent severe without psychotic features F33.2 ; Essential (primary) hypertension I10 and Obstructive sleep apnea (adult) (pediatric) G47.33 [facility] [employer] [address] 10/12/2024 Shermanjanelle Leon Benign essential HTN I10 ; Encounter for screening for depression Z13.31 ; Generalized anxiety disorder F41.1 ; Major depressive disorder, recurrent severe without psychotic features F33.2 ; Essential (primary) hypertension I10 ; Obstructive sleep apnea (adult) (pediatric) G47.33 and Attention deficit hyperactivity disorder (ADHD), combined type F90.2 [facility] [employer] [address] 10/23/2024 Sherman Leon Lack of concentratio n R41.840 [facility] [employer] [address] 11/23/2024 Shermanjanelle Leon Major depressive disorder, recurrent severe without psychotic features F33.2 ; Obstructive sleep apnea (adult) (pediatric) G47.33 ; ADHD (attention deficit hyperactivity disorder), combined type F90.2 ; Encounter for screening for cardiovascular disorders Z13.6 ; Dietary counseling and surveillance Z71.3 ; Benign essential HTN I10 and Encounter for screening for depression Z13.31 [facility] [employer] [address] [address] 01/11/2025 Sherman Carolyn Major depressive disorder, recurrent severe without psychotic features F33.2 ; Obstructive sleep apnea (adult) (pediatric) G47.33 ; ADHD (attention deficit hyperactivity disorder), combined type F90.2 ; Encounter for screening for cardiovascular disorders Z13.6 and Encounter for screening for depression Z13.31 [facility] [place] [address] [facility] [address] [address] 05/07/2025 Sherman Leon Major depressive disorder, recurrent severe without psychotic features F33.2 ; Obstructive sleep apnea (adult) (pediatric) G47.33 ; ADHD (attention deficit hyperactivity disorder), combined type F90.2 ; Neuralgia and neuritis, unspecified M79.2 ; Generalized anxiety disorder F41.1 and Abnormal weight gain R63.5 Assessments Encounter Date Diagnosis (ICD Code) Assessment Notes Treatment Notes Treatment Clinical Notes Section Notes 10/12/2024 Benign essential HTN (ICD-10 - I10) [...] medication dosing to bedtime if fatigue persists. 05/07/2025 Major depressive disorder, recurrent severe without psychotic features (ICD-10 - F33.2) Depression described as stable. Patient continues duloxetine and tamoxifen for mood. 05/07/2025 Obstructive sleep apnea (adult) (pediatric) (ICD-10 - G47.33) Patient reports ongoing fatigue despite sleep. Uses CPAP for obstructive sleep apnea. Notes some improvement in energy with medication adjustments. 07/17/2024 Generalized anxiety disorder (ICD-10 - F41.1) [...] adjustments as needed to optimize treatment outcomes. 05/07/2025 ADHD (attention deficit hyperactivity disorder), combined type [...] as needed to optimize treatment outcomes. 11/23/2024 ADHD (attention deficit hyperactivity disorder), combined [...] screening for depression (ICD-10 - Z13.31) 10/12/2024 Generalized anxiety disorder (ICD-10 - F41.1) 11/23/2024 Encounter for screening for cardiovascular disorders (ICD-10 - Z13.6) 01/11/2025 Encounter for screening for cardiovascular disorders (ICD-10 - Z13.6) 05/07/2025 Neuralgia and neuritis, unspecified (ICD-10 - M79.2) Patient describes persistent leg pain for 16 years. Denies back pain. Reports tailbone pain when sitting. Brief pain relief after injections, lasting only one day. Frustration with insurance delays for procedures. Job prospects depend on physical ability. - Future intra-articular injection, lumbar spine scheduled in 60 days. 07/17/2024 Essential (primary) hypertension (ICD-10 - I10) [...] adjustments as needed to optimize treatment outcomes. 05/07/2025 Generalized anxiety disorder (ICD-10 - F41.1) Anxiety described as stable. Patient continues duloxetine and tamoxifen for mood. 07/17/2024 Obstructive sleep apnea (adult) (pediatric) (ICD-10 [...] adjustments as needed to optimize treatment outcomes. 01/11/2025 Encounter for screening for depression (ICD-10 - Z13.31) 11/23/2024 Dietary counseling and surveillance (ICD-10 - Z71.3) 10/12/2024 Major depressive disorder, recurrent severe without psychotic features (ICD-10 - F33.2) 10/12/2024 Essential (primary) hypertension (ICD-10 - I10) 11/23/2024 Benign essential HTN (ICD-10 - I10) 05/07/2025 Abnormal weight gain (ICD-10 - R63.5) Weight gain noted as a side effect of gabapentin and prednisone. Patient expresses difficulty maintaining positive attitude due to stalled progress and weight gain. 11/23/2024 Encounter for screening for depression (ICD-10 [...] ensure accuracy, there may be errors, including rn transfer inaccuracies and misspellings of medication names. This [...] Next Appt Details Provider Name:Sherman Leon , 08/06/2025 04:00:00 PM, [address], [address], [place], [address], Insurance Providers Payer Name Payer Address Payer Phone Subscriber Number Group Number Insured Name Patient Relationship to Insured Coverage Start Date Coverage End Date [facility] Ppo [address] [place] [address] [id number] ROBBIE FRANCE Self - patient is the insured [facility] [address] [address] [place] [address] [id number] ROBBIE FRANCE Self - patient is the [...] withou t psychotic features Sleep apnea , Obstructive sleep apnea Chronic pain, lower extremities, 16 year s duration Depression Anxiety Surgical History Surgery Date(Month/Year) Cardiac stent 09/17/2015 Any surgical history 04/21/2023 Laminectomy, last year 04/2024
--- OUTSIDE RECORDS SUMMARY | 2025-07-05 12:15 | XMS_ITS | Clinical Summary ---
Author Organization [facility] Address [address] [place] [address] Care Team Providers Care Operations Research Scientist Name Role Phone Rochelle Grayson MD Unavailable Clarice Gold NP Primary Care Provider [phone] Allergies No known active allergies Medications aspirin (ASPIRIN LOW DOSE) 81 mg tablet take 1 tablet by oral route every day 0 0 09/11/2015 Active metoprolol XL (TOPROL-XL) 50 mg extended [...] mouth daily 90 tablet 1 03/07/[address] (CYMBALTA) 60 mg capsule TAKE 1 CAPSULE BY MOUTH EVERY DAY FOR 90 DAYS 04/12/2025 Active atomoxetine (STRATTERA) 80 mg capsule Take by mouth daily 04/15/2025 Active Active Problems Problem Noted Date Diagnosed [...] weight loss without success. Plan: Refer [facility] bariat[facility] Assessment & Plan (04/07/2019 [...] reflux. Have encouraged him to purchase intake [id number] Nexium. If his symptoms are not improved in a month that he is to contact us at which time we may consider pursuing stress testing since his symptoms are both postprandial and exertional Body mass index 40+ - severely obese 10/01/2016 Overview (12/11/2016): Body mass index 40+ - severely obese Hyperlipidemia 10/01/2016 Overview (12/11/2016): Hyperlipidemia Assessment & Plan (05/25/2025 2:53 PM GOVERNMENT MINISTER): Reasonably well controlled today with an LDL [...] (10/24/2016): Dyspnea on exertion Coronary arteriosclerosis in [place] artery 09/25 Overview (10/24/2016): Coronary arteriosclerosis in [place] artery Assessment & Plan (05/25/2025 2:52 PM GOVERNMENT MINISTER): Now reporting episodes of chest discomfort that [...] hypertension Assessment & Plan (05/25/2025 2:52 PM GOVERNMENT MINISTER): Blood pressure well controlled. Continue losartan and [...] Encounters Date Type Department Care Team Description 06/04/2025 Results Follow-Up [facility] Cardiology [address] [facility] [address] [place] [address] Mya Lewis MD [place] MPI SPECT (Rest and/or Stress) Multiple Studies 06/01/2025 10:13 AM GOVERNMENT MINISTER - 06/01/2025 11:59 PM GOVERNMENT MINISTER Hospital Encounter [facility] OP Cardiac Testing [address] [place] [address] Discharge Disposition: Discharge to home or self care 06/01/2025 10:12 AM GOVERNMENT MINISTER - 06/01/2025 11:59 PM GOVERNMENT MINISTER Hospital Encounter [facility] OP Cardiac Testing [address] [place] [address] Coronary arteriosclerosis in [place] artery Discharge Disposition: Discharge to home or self care 05/25/2025 2:15 PM GOVERNMENT MINISTER Office Visit [facility] Cardiology [address] [place] [address] Mya Lewis MD Coronary arteriosclerosis in [place] artery (Primary Dx); Mixed hyperlipidemia; Essential hypertension from Last 3 Months Immunizations Immunization Administration [...] Depression 03/2019 Heart disease 09/2015 Sleep apnea Morbid obesity (HCC) Low back pain Family History Medical History Relation Name Comments Cancer Brother 1 Elias Meinhardt Coronary artery disease Brother 1 Elias Meinhardt Coronary artery disease; Depression Brother 1 Elias Meinhardt Diabetes Brother 1 Elias Meinhardt Heart disease Brother 1 Elias Meinhardt Sleep apnea Brother 1 Elias Meinhardt Diabetes Brother 2 Domo Meinhardt Heart disease Brother 3 Chito Meinhardt Diabetes Brother 4 Domo Meinhardt Heart disease Brother 5 Chito Meinhardt COPD Father Domo Meinhardt Cancer Father Domo Meinhardt Coronary artery disease Father Domoshayla Johnsnhardt Co ronary artery disease; Hearing loss Father Domo Meinhardt Heart disease Father Domo Meinhardt Coronary artery disease Mother Allie Askewar dt Heart attack Mother Allie Meinhardt Heart disease Mother Allie Meinhardt Coronary artery disease Sister Relation Name Status Comments Brother 1 Eilas Meinhardt Brother 2 Domo Meinhardt Brother 3 Chito Meinhardt Brother 4 Domo Meinhardt Alive Brother 5 Chito Meinhardt Alive Father Domo Meinhardt Mother Allie Meinhardt Alive Sister Social History Tobacco Use Types Packs/Day [...] on file Legal Sex Male 11:42 AM GOVERNMENT MINISTER Gender Identity Male 06/24/2020 11:12 AM GOVERNMENT MINISTER Sexual Orientation Straight 06/24/2020 11 :12 AM GOVERNMENT MINISTER Last Filed Vital Signs Vital Sign Reading Time Taken Comments Blood Pressure 136/74 05/25/2025 2:20 PM GOVERNMENT MINISTER Pulse 91 05/25/2025 2:20 PM GOVERNMENT MINISTER Temperature 36.1 C (97 F) 07/30/2023 3:03 PM GOVERNMENT MINISTER Respiratory Rate 16 07/30/2023 3:03 PM GOVERNMENT MINISTER Oxygen Saturation 98% 05/25/2025 2:20 PM GOVERNMENT MINISTER Inhaled Oxygen Concentration - - Weight 147.9 kg (326 lb) 05/25/2025 2:20 PM GOVERNMENT MINISTER Height 188 cm (6' 2) 05/25/2025 2:20 PM GOVERNMENT MINISTER Body Mass Index 41.86 05/25/2025 2:20 PM GOVERNMENT MINISTER Plan of Treatment Health Maintenance Due Date [...] (#1) 2025 3, 06/24/2021, 04/22/2020 Lipid Panel 05/25/2026 05/25/2025, 04/19, 05/19/2023, Additional history exists Goals Goal Patient Goal Type Associated Problems Recent Progress Patient-Stated? Author CCM Chronic Pain Care Plan Chronic Care Management No change(07/30 3:04 PM GOVERNMENT MINISTER) No Jane Seals, RN Note: Problem: Chronic Pain Goals: 1. Minimize further functional decline 2. Maximize quality of life 3. Control pain Strategies: - Activity/exercise program recommendation - Conservative stepwise pain medicine strategy with multi-disciplinary approach - Recommend healthy lifestyle strategies and compensatory methods as needed Medical Devices Implanted Type Area Inward Toll Operator Device Identifier Shelf Expiration Date Model / Serial / Lot Other - See Comments Other - see comments N/A: Mouth Description:2 dental implant s. Cardiac Stent- 7 Implanted:07/2016 (Quantity not on file) Heart Procedures Procedure Name Priority Date/Time Associated Diagnosis Comments NM MPI SPECT (REST AND/OR STRESS) MULTIPLE STUDIES Schedule Routine, Read Routine (OP Routine) 06/01/2025 12:36 PM GOVERNMENT MINISTER Coronary arteriosclerosis in [place] artery POCT LIPID PANEL Routine 05/25/2025 2:40 PM GOVERNMENT MINISTER Mixed hyperlipidemia from Last 3 Months Results * NM MPI SPECT (Rest and/or Stress) Multiple Studies (06/01/2025 12:36 PM GOVERNMENT MINISTER) Anatomical Region Laterality Modality Body N/A Nuclear Medicine 06/01/2025 10:3 0 AM GOVERNMENT MINISTER Narrative 06/03/2025 9:22 PM GOVERNMENT MINISTER [facility] Outpatient Cardiac Testing Center [facility] [place] [address] MPI Imaging Report Patient Name: DOC GREEN A : 1970 (55y 4m) Sex: M Study Date: 06/01/2025 10:30:00 AM Ht(Inch): Wt(Lb): BSA: Tech: Order Provider: MYA LEWIS Heart Rate: 142 BMI: Ref Provider: MYA LEWIS PROCEDURES: Pharmacologic SPECT Report.: Myocardial perfusion imaging with Sestamibi SPECT at rest and post regadenoson (Lexiscan) infusion. INDICATIONS: I25.10 Atherosclerotic heart disease of [place] coronary artery without angina pectoris. FINDINGS: Procedure Data: One day rest/stress protocol was used with IV site located at right arm. Lexiscan Protocol Sestamibi injected IV at rest was 8.3 millicuries Rest SPECT imaging was performed 30 minutes post injection. Lexiscan 0.4mg given IV over 10 seconds Sestamibi injected IV post Lexiscan was 25.4 millicuries Stress SPECT Gated imaging was performed 45 minutes post Lexiscan injection. TID: 1.06 Resting HR 69 bpm Peak HR: 86 bpm Predicted Maximal HR 167 bpm Percent Max Predicted HR Achieved: 51.5 % Baseline BP: 163/84 mmHg Peak BP: 141/64 mmHg Performed By: María Bowman RN. Supervising Physician: The Supervising Physician is Dr. Helton. Reason for Termination: Lexiscan protocol complete. Resting ECG: Normal sinus rhythm. Post Pharm ECG: No diagnostic ST changes. Arrhythmia: Rare APCs. Cardiac Symptoms With Stress: Symptoms with stress were None. BP Response: Blood pressure response is appropriate. Perfusion Defect1: Myocardial perfusion images show a small defect of mild intensity during stress. It is a fixed perfusion abnormality in the basal inferior and mid inferior segments. Findings are consistent with fixed defect. LV Function: Global left ventricular function is normal. Ejection Fraction is estimated to be 54 %. CONCLUSIONS: 1. Uncomplicated administration of Lexiscan. 2. No chest pain. 3. Normal bp response. 4. Rare PACs. 5. Small fixed inferobasal perfusion defect suggestive of artifact. 6. No reversible defects. 7. Normal LV systolic function. Electronically Signed By: Mya Lewis MD 06/03/2025 9:20:40 PM GOVERNMENT MINISTER Procedure Note Mya Lewis MD - 06/03/2025 [facility] Cardiac Testing Center [address] [place] [address] MPI Imaging Report Patient Name: DOC GREEN A : 1970 (55y 4m) Sex: M Study Date: 06/01/2025 10:30:00 AM Ht(Inch): Wt(Lb): BSA: Tech: dh Order Provider: MYA LEWIS Heart Rate: 142 BMI: Ref Provider: MYA LEWIS PROCEDURES: Pharmacologic SPECT Report.: Myocardial perfusion imaging with SestamibiSPECT at rest and post regadenoson (Lexiscan) infusion. INDICATIONS: I25.10 Atherosclerotic heart disease of [place] coronary artery withoutangina pectoris. FINDINGS: Procedure Data: One day rest/stress protocol was used with IV site located at rightarm. Lexiscan Protocol Sestamibi injected IV at rest was 8.3 millicuries Rest SPECT imaging was performed 30 minutes post injection. Lexiscan 0.4mg given IV over 10 seconds Sestamibi injected IV post Lexiscan was 25.4 millicuries Stress SPECT Gated imaging was performed 45 minutes post Lexiscaninjection. TID: 1.06 Resting HR 69 bpm Peak HR: 86 bpm Predicted Maximal HR 167 bpm Percent Max Predicted HR Achieved: 51.5 % Baseline BP: 163/84 mmHg Peak BP: 141/64 mmHg Performed By: María Bowman RN. Supervising Physician: The Supervising Physician is Dr. Helton. Reason for Termination: Lexiscan protocol complete. Resting ECG: Normal sinus rhythm. Post Pharm ECG: No diagnostic ST changes. Arrhythmia: Rare APCs. Cardiac Symptoms With Stress: Symptoms with stress were None. BP Response: Blood pressure response is appropriate. Perfusion Defect1: Myocardial perfusion images show a small defect of mildintensity during stress. It is a fixed perfusion abnormality in the basal inferiorand mid inferior segments. Findings are consistent with fixed defect. LV Function: Global left ventricular function is normal. Ejection Fractionis estimated to be 54 %. CONCLUSIONS: 1. Uncomplicated administration of Lexiscan. 2. No chest pain. 3. Normal bp response. 4. Rare PACs. 5. Small fixed inferobasal perfusion defect suggestive of artifact. 6. No reversible defects. 7. Normal LV systolic function. Electronically Signed By: Mya Lewis MD 06/03/2025 9:20:40 PM GOVERNMENT MINISTER Mya Lewis MD IMG NM PROCEDURES Edwina l Result * POCT lipid panel (05/25/2025 2:40 PM GOVERNMENT MINISTER) Cholesterol, POC 129 <200 MG/DL HDL, POC 54 >=40 mg/dL Triglycerides, POC 57 <=149 mg/dL LDL Cholesterol POC 64 <=129 mg/dL Chol/HDL Ratio, POC 1.2 NONE Non-HDL Cholesterol, POC 75 NONE mg/dL Cholesterol Total, POC 129 30 - 199 mg/dL Capillary blood 05/25/2025 2 :40 PM GOVERNMENT MINISTER Mya Lewis MD POINT OF CARE TEST ORD ERABLES Edited Result - Final from Last 3 Months Insurance [facility] Care Teams Operations Research Scientist Relationship Specialty Start Date End Date Clarice Gold NP [address] [place] [address] PCP - General Nurse Practitioner 05/12/24 Rochelle Grayson MD Consulting Physician Pain Management 04/24/22
--- OUTSIDE RECORDS SUMMARY | 2025-07-05 12:15 | XMS_ITS | Clinical Summary ---
Author Organization [facility] [employer]aimie Rebolledo Address [address] [address] Care Team Providers Care Steam Brush Operator Name Role Phone Unavailable Primary Care Provider [...] on file Legal Sex Male 8:14 AM [employer] ADVISOR Gender Identity Not on file Sexual Orientation [...] 06/24/2021, 2019 Medical Devices Implanted Type Area Auto Bench Mechanic Device Identifier Shelf Expiration Date Model / Serial / Lot Seamguard Endogia 60 Blk [id number] - [id number] Implanted:Qt y: 1 on 04/21/2023 by Matthew Coronel MD at [facility] [employer] N/A: Stomach [employer] [id number] 12/23/2025 12BSGTRI 60B / / [id number] Seamguard Endogia 60 Prpl [id number] - [id number] Implanted:Qt y: 1 on 04/21/2023 by Matthew Coronel MD at [facility] [employer] N/A: Stomach [employer] [id number] 12/21/2025 12BSGTRI 60P / / [id number] Seamguard Endogia 60 Prpl [id number] - [id number] Implanted:Qt y: 1 on 04/21/2023 by Matthew Coronel MD at [facility] [employer] N/A: Stomach [employer] [id number] 12/21/2025 12BSGTRI 60P / / [id number] Seamguard Endogia 60 Prpl [id number] - [id number] Implanted:Qt y: 1 on 04/21/2023 by Matthew Coronel MD at [facility] [employer] N/A: Stomach [employer] [id number] 12/21/2025 12BSGTRI 60P / / [id number] Seamguard Endogia 60 Prpl [id number] - [id number] Implanted:Qt y: 1 on 04/21/2023 by Matthew Coronel MD at [facility] [employer] N/A: Stomach [employer] [id number] 12/08/2025 12BSGTRI 60P / / [id number] Power Supply Engineer Ligamax Endo Multi Clip 5mm El5ml - [id number] Implanted:Qt y: 1 on 04/21/2023 by Matthew Coronel MD at [facility] Clip N/A: Stomach [employer] [id number] 01/16/2028 EL5ML / / [id number] Dental Implants Cardiac Stent Insurance RX [employer] Commercial RX [employer] PLANS (INTERNAL) [facility] Internal Plans Advance Directives For more information, please contact: [phone] * Full Code (Latest Code Status on File) Date Activated Date Inactivated Comments 04/21/2023 8:28 AM 04/22/2023 5:41 PM * Full Code Date Activated Date Inactivated Comments 04/21/2023 6:11 AM 04/21/2023 8:28 AM
--- OUTSIDE RECORDS SUMMARY | 2025-07-05 12:15 | XMS_ITS | Clinical Summary ---
Author Organization [facility] Address [address] [place] [address] Care Team Providers Care Hospice Physician Name Role Phone Jenni Tamayo MICROFILMING DOCUMENT PREPARER-JET SKI MECHANIC Primary Care Provider [phone] Source Comments [facility],non-owned Affiliates and Associated Physician Practices is amultiple site organization consisting of ambulatory clinics and hospital sitesin [place], [place] and [place]. This disclosure is being madepursuant to the Care Everywhere program and may not contain all information available regarding this patient. Last updated 18.[facility] Allergies No known active allergies Medications * [...] daily 3 Active B-D 3CC LUER-ANAND SYR 15MK4-4/2 21G X 1-1/2 3 ML MISC as [...] on file Legal Sex Male 7:29 PM GREY ROLL WORKER Gender Identity Not on file Sexual Orientation Not on file Last Filed Vital Signs Vital Sign Reading Time Taken Comments Blood Pressure - - Pulse - - Temperature - - Respiratory Rate - - Oxygen Saturation - - Inhaled Oxygen Concentration - - Weight 179.2 kg (395 lb) 06/08/2023 10:29 AM GREY ROLL WORKER Height 189 cm (6' 2.4) 06/08/2023 10:29 AM GREY ROLL WORKER Body Mass Index 50.17 06/08/2023 10:29 AM GREY ROLL WORKER Plan of Treatment Health Maintenance Due Date [...] to complete this topic Insurance [facility] Address: [facility] [id number] [place] [address] Care Teams Hospice Physician Relationship Specialty Start Date End Date Jenni Tamayo APRN-CNP [address] [place] [address] PCP - General Nurse Practitioner Family 05/04/23
--- OUTSIDE RECORDS SUMMARY | 2025-07-05 12:15 | XMS_ITS | Encounter Summary ---
Author Organization [facility] Healthcare Address [address] [place] [address] Care Team Providers Care Inspector Poising Name Role Phone Rochelle Grayson MD Unavailable Clarice Gold NP Primary Care Provider [phone] Encounter Details Date Type Department Care Team (Late st Contact Info) Description 06/04/2025 Results Follow-Up [facility] Cardiology [address] [place] [address] Abelino Rodriguez MD [address] [facility] [address] [place] [address] NM MPI SPECT (Rest and/or Stress) Multiple Studies Social History Tobacco Use Types Packs/Day Years Used Date Smoking Tobacco: Never Smokeless Tobacco: Never Alcohol Use Standard Drinks/Week Comments Yes 6 [...] on file Legal Sex Male 11:42 AM CRANE OPERATOR CAB Gender Identity Male 06/24/2020 11:12 AM CRANE OPERATOR CAB Sexual Orientation Straight 06/24/2020 11 :12 AM CRANE OPERATOR CAB documented as of this encounter Miscellaneous Notes * Result Encounter Note - Alma Rosa Maldonado MA - 06/04/2025 3:48 PM CRANE OPERATOR CAB Pt notified via [employer] E OPERATOR CAB * Result Encounter Note - Abelino Rodriguez MD - 06/04/2025 3:07 PM CRANE OPERATOR CAB Results shared with patient via [employer], as shown below. Follow up with me in 1 year Good news! Your stress test is negative. It seems that your chest discomfort is likely not related to your heart. Let us touch base again next year. C Jennifer E OPERATOR CAB documented in this encounter Plan of Treatment Not on file documented as of this encounter Goals Goal Patient Goal Type Associated Problems Recent Progress Patient-Stated? Author CCM Chronic Pain Care Plan Chronic Care Management No change(07/30 3:04 PM CRANE OPERATOR CAB) No Jane Seals, AVELINA Note: Problem: Chronic Pain Goals: 1. Minimize further functional decline 2. Maximize quality of life 3. Control pain Strategies: - Activity/exercise program recommendation - Conservative stepwise pain medicine strategy with multi-disciplinary approach - Recommend healthy lifestyle strategies and compensatory methods as needed documented as of this encounter Visit Diagnoses Not on filedocumented in this encounter Care Teams Inspector Poising Relationship Specialty Start Date End Date Clarice Gold NP [address] [place] [address] PCP - General Nurse Practitioner 05/12/24 Rochelle Grayson MD Consulting Physician Pain Management 04/24/22 documented as of this encounter
--- OUTSIDE RECORDS SUMMARY | 2025-07-05 12:15 | XMS_ITS | Encounter Summary ---
Author Organization [facility] Healthcare Address [address] [place] [address] Care Team Providers Care City Plant Supervisor Name Role Phone Clarice Gold DIESEL ENGINE TESTER Primary Care Provider [phone] Rochelle Grayson MD Unavailable Jenni Tamayo DIESEL ENGINE TESTER Primary Care Provider [phone] Clarice Gold DIESEL ENGINE TESTER Primary Care Provider [phone] Reason for Visit * Reason Onset Date Comments Pre Arrival 12/08/2021 Encounter Details Date Type Department Care Team (Late st Contact Info) Description 12/08/2021 Telephone [place] [id number] [address] Taylor Hairston RN Pre Arrival [...] on file Legal Sex Male 11:42 AM EDUCATION PROFESSIONAL Gender Identity Male 06/24/2020 11:12 AM EDUCATION PROFESSIONAL Sexual Orientation Straight 06/24/2020 11 :12 AM EDUCATION PROFESSIONAL documented as of this encounter Plan of Treatment Not on file documented as of this encounter Goals Goal Patient Goal Type Associated Problems Recent Progress Patient-Stated? Author CCM Chronic Pain Care Plan Chronic Care Management No change(07/30 3:04 PM EDUCATION PROFESSIONAL) No Jane Seals, AVELINA Note: Problem: Chronic Pain Goals: 1. Minimize further functional decline 2. Maximize quality of life 3. Control pain Strategies: - Activity/exercise program recommendation - Conservative stepwise pain medicine strategy with multi-disciplinary approach - Recommend healthy lifestyle strategies and compensatory methods as needed documented as of this encounter Visit Diagnoses Not on filedocumented in this encounter Care Teams City Plant Supervisor Relationship Specialty Start Date End Date Clarice Gold NP [address] [place] [address] [place] [address] PCP - General Nurse Practitioner 11/18/20 01/04/23 Jenni Tamayo NP [address] [place] [address] [place] [address] PCP - General Nurse Practitioner 01/05/23 05/11/24 Clarice Gold NP [address] [place] [address] PCP - General Nurse Practitioner 05/12/24 Rochelle Grayson MD [address] [place] [address] [place] [address] Consulting Physician Pain Management 04/24/22 documented as of this encounter
--- OUTSIDE RECORDS SUMMARY | 2025-07-05 12:15 | XMS_ITS | Patient Health Record ---
Author Organization [facility] Address [address] [place] [address] [place] [address] Phone [phone] Care Team Providers Care Column Precaster Name Role Phone LYNDON BENSON MD Primary Care Provider Unavail able Bob ALMAZAN [facility] Reason For Referral No Information Medications Medication SIG (Take, Route, Frequency, Duration) Notes Start Date End Date Diagnosis (ICD Code) Status traMADol HCl 50 MG Tablet 1 tablet Orally every 6 hrs prn pain 04/09/2016 Active Losartan Potassium-HCTZ Active Plavix Active Aspirin Active Atorvastatin Calcium Active Social History Sex Observation Social History Observation Description Sex Observation Male Plan Of Treatment No Information Insurance Providers Payer Name Payer Address Payer Phone Subscriber Number Group Number Insured Name Patient Relationship to Insured Coverage Start Date Coverage End Date [facility] [address] [place] [address] [id number] ROBBIE [place] Self - patient is the insured 6 Medical (General) History Medical History History ICD Code coronary artery disease hypertension morbid obesity degenerative joint disease Surgical History Surgery Date(Month/Year) percutaneous transluminal coronary angio plasty 09/17/15
== END 2025-07-05 10:58 | disposition home or self-care (01) ==
LOC: ANHSURGERY 11:00
PROVIDERS: PCP Nurse Practitioner Adult Health; Visit Provider Neurological Surgery
DX: M48.062 Spinal stenosis, lumbar region with neurogenic claudication (principal); Z01.818 Encounter for other preprocedural examination
CPT/HCPCS: 36415; 71046; 80048; 81003; 85027; 85610; 85730